=== PATIENT | female | born 1990 | race Caucasian/White ===

== ENCOUNTER 2020-09-23 10:13 | Inpatient (IN) | payer MEDICAID, SELFPAY ==
[2020-09-23] VITALS (11 sets, daily range): BP systolic 118–137; BP diastolic 57–82; PULSE 102–133; RESP 18–28; TEMP 36.8–37.2; O2SAT 93–100; BMI 24.0
--- NOTE | 2020-09-23 10:36 | XR_ITS ---
EXAMINATION: XR CHEST CLINICAL INFORMATION: Shortness of breath COMPARISON: Chest radiographs 02/22/2020, 10/20/2019 TECHNIQUE: Portable upright AP view of the chest was obtained. FINDINGS: The lungs are clear. There is no pneumothorax, pleural reaction, airspace consolidation, or groundglass opacity. The costophrenic sulci are well-defined. The heart is normal in size. The vascularity is normal. The hilar and mediastinal contours and bony structures are unremarkable. There is a folded high attenuation artifact overlying the left axilla measuring 5.1 x 2.3 cm, presumably overlying outside of the patient. Clinically correlate. XR/XR chest 1V IMPRESSION: 1. Lungs clear. 2. Artifact overlying left axilla, presumably outside of the patient. Clinically correlate.
--- NOTE | 2020-09-23 10:39 | ED.ASTHMA ---
HPI - Asthma General Chief Complaint: Asthma Stated Complaint: asthma Time Seen by Provider: 09/23/20 10:36 History of Present Illness HPI Narrative: Patient is a 29-year-old female presents today with having coughing, shortness of breath. Similar to previous bouts of asthma exacerbation. Was admitted to the hospital few months ago. Patient denies any change in smell or taste. No fever no chills. Coughing nonproductive in nature. Positive generalized malaise. Symptoms fairly abrupt in onset since this morning. No history of heart failure. No history of [place]. no sick contact. Related Data Home Medications Medication Instructions Recorded Confirmed albuterol sulfate 0.63 mg INHALATION Q4-6H PRN 09/23/20 09/23/20 albuterol sulfate [ProAir HFA] 2 puff INHALATION Q4H PRN 09/23/20 09/23/20 cetirizine 10 mg PO DAILY 09/23/20 09/23/20 fluticasone furoate-vilanterol 1 inh INHALATION DAILY 09/23/20 09/23/20 [Breo Ellipta] fluticasone propionate [Flonase] 2 spray INTRANASAL DAILY 09/23/20 09/23/20 ketotifen fumarate 1 drp OPHTHALMIC (EYE) BID PRN 09/23/20 09/23/20 montelukast 10 mg PO BEDTIME 09/23/20 09/23/20 Allergies Allergy/AdvReac Type Severity Reaction Status Date / Time SEASONAL ALLERGIES Allergy Intermediate RUNNY NOSE Uncoded 06/17/20 18:02 Review of Systems Review of Systems: Yes Unobtainable due to mental condition PMFSH Past Medical History Attestation statement: The following information was validated with the patient. Medical History (Updated 09/23/20 @ 13:18 by Estevan Chacon MD) Asthma section wound complication Family History Family History (Updated 09/23/20 @ 13:18 by Estevan Chacon MD) Other Asthma Social History Social History Smoking Status: Light tobacco smoker Use of substances other than those prescribed or required for medical reasons: Yes Substance Use Type: Marijuana Advance Directives: No Advance Directives Information Provided: No Physical Exam Vital Signs: Vital Signs: Last Vital Signs Temp 98.2 F 09/23/20 10:24 Pulse 108 H 09/23/20 12:18 Resp 20 09/23/20 11:39 BP 137/82 09/23/20 11:05 Pulse Ox 100 09/23/20 11:39 Body Mass Index 24.0 Appearance: Alert. Oriented X3. In respiratory distress Eyes: Pupils equal, round and reactive to light. ENT: Pharynx normal. Neck: Normal inspection. Neck supple. No lymph nodes noted. No crepitus CVS: Tachycardic but regular Respiratory: Diminished breath sounds bilaterally with increased work of breathing wheezing bilaterally Abdomen: Soft and nontender. No rigidity. No distention. good BS x4 Skin: Skin warm and dry. Normal skin color. Normal skin turgor. Extremities: No lower extremity edema. Neurovascular intact to all extremities. No Lacerations. No Rash Neuro: Oriented X 3. No motor deficit. No sensory deficit. Moving all extermities. No slurred speech MDM - Asthma MDM Narrative Medical decision making narrative: Patient given steroid multiple continuous neb treatments. Still wheezing still feels short of breath. Audible wheezing could be heard just standing next to her. Will admit for further evaluation and observation. Currently in stable condition. Patient's chest x-ray was negative for pneumonia. Patient's coronavirus test was negative. Lab Data Attestation: I reviewed the patient's lab results. Labs: Lab Results 09/23/20 09/23/20 09/23/20 Range/Units 10:56 10:56 10:59 Hold Purple Top SEE NOTE Hold Blue Top Beta HCG, Quant < 2 mIU/mL COVID-19 (CRYSTAL) Negative (Negative) COVID-19 Clin Com See Note 09/23/20 Range/Units 10:59 Hold Purple Top Hold Blue Top SEE NOTE Beta HCG, Quant mIU/mL COVID-19 (CRYSTAL) (Negative) COVID-19 Clin Com Critical Care Time Critical Care Time Critical Care Time: Yes Total Critical Care Time: 40 Attestation: I have personally provided 40 minutes of critical care time exclusive of time spent on separately billable procedures. Time includes review of lab data, radiology results, discussion with consultants, and monitoring for potential decompensation. Interventions were performed as documented above Discharge Plan Discharge Clinical Impression: Asthma with status asthmaticus Prescriptions: No Action albuterol sulfate 0.63 mg/3 mL Solution For Nebulization 0.63 mg INHALATION Q4-6H PRN (Reason: Wheezing) RF: 0 cetirizine 10 mg Tablet 10 mg PO DAILY RF: 0 ketotifen fumarate 0.025 % (0.035 %) Drops 1 drp OPHTHALMIC (EYE) BID PRN (Reason: Itching) RF: 0 montelukast 10 mg Tablet 10 mg PO BEDTIME RF: 0 albuterol sulfate [ProAir HFA] 90 mcg/actuation Hfa Aerosol Inhaler 2 puff INHALATION Q4H PRN (Reason: Shortness Of Breath Or Wheezing) RF: 0 fluticasone propionate [Flonase] 50 mcg/actuation [place],Suspension 2 spray INTRANASAL DAILY RF: 0 Breo Ellipta 200-25 mcg/dose Blister With Device 1 inh INHALATION DAILY RF: 0
[2020-09-23] MEDS: Albuterol Sulfate (0.083%) 2.5 MG/3 ML VIAL.NEB 10 MG INHALE (10:45)
[2020-09-23] MEDS: methylPREDNISolone Sod Succ/PF 125 MG/2 ML VIAL IVPUSH (10:51)
[2020-09-23] MEDS: Magnesium Sulfate/H2O 2 GM/50 ML PIGGYBACK IV (10:51)
[2020-09-23 11:30] LABS: COVID-19 Test Negative (Negative)
[2020-09-23 11:37] LABS: HCG Quantitative < 2 mIU/mL
--- NOTE | 2020-09-23 13:11 | PM.IMHP ---
History of Present Illness Date of Service: 09/23/20 Chief Complaint: SHORTNESS OF BREATH FOR FEW DAYS PATIENT IS A 29-YEAR-OLD FEMALE WITH THE HISTORY OF ASTHMA-she came to the hospital because she is feeling shortness of breath-patient says that she always get exacerbation during decision cold season . She denies any fever or chills but has cough with clear sputum. Denies any abdominal pain or weakness or numbness. She denies any sick contacts She says that she also has family history of asthma. She got to time nebulizers and steroids and magnesium-her breathing is still not improving so ED physician had requested for admission. As per the patient she quit smoking. But still uses smoke marijuana : She said last use was yesterday that might also have contributed to her shortness of breath. Past medical history: Asthma Past surgical history: She had 3 years ago as per the patient. Social history: Lives with family has 2 kids functionally independent Patient is ex-smoker quit is few months back, smokes marijuana though Denies any alcohol or any recreational drug use. Allergy : nkda Review of Systems Review of Systems: Constitutional patient is average build, seems short of breath. Constitutional: Constitutional: Reports fatigue ENT: Reports Normal hearing present Cardiovascular: Cardiovascular: Reports no additional cardiovascular complaints Respiratory: Comments: Cough and clear phlegm. Gastrointestinal: Comments: Denies any abdominal pain or nausea or vomiting Musculoskeletal: Comments: Denies any muscle pain or cramps Neurologic: Reports Normal hearing present Comments: No weakness or numbness Psychiatric: Comments: No anxiety or also said does not feel set. Endocrine: Endocrine: Reports fatigue [facility] Medical History (Updated 09/23/20 @ 13:18 by Estevan Chacon MD) Asthma section wound complication Family History (Updated 09/23/20 @ 13:18 by Estevan Chacon MD) Other Asthma Pertinent family history: Her both children has asthma. Social History Household Members: Family Housing: Apartment Do you presently have visiting nurse or other home services: No Smoking Status: Light tobacco smoker Use of substances other than those prescribed or required for medical reasons: Yes Substance Use Type: Marijuana Substance Use Frequency: Occasionally Last Used Substance: Days (ago) Currently Displaying Signs/Symptoms of Drug Intoxication Withdrawal: No Any prior treatment program specific to substance use: No Have you been hit, kicked, punched, or otherwise hurt by someone within the past year? If so, by whom?: No Do you feel safe in your current relationship?: Yes Is there a partner from a previous relationship who is making you feel unsafe now?: No Are you made to feel afraid or neglected: No Advance Directives: No Advance Directives Information Provided: No Do you have thoughts of harming others: None Do you have a plan to hurt others: No Plan Recently lost weight without trying: No service: No Current occupational status: unemployed Meds Allergies Allergy/AdvReac Type Severity Reaction Status Date / Time SEASONAL ALLERGIES Allergy Intermediate RUNNY NOSE Uncoded 09/23/20 18:15 Home Medications Medication Instructions Recorded Confirmed Type cetirizine 10 mg PO DAILY 09/23/20 09/23/20 History fluticasone furoate-vilanterol 1 inh INHALATION DAILY 09/23/20 09/23/20 History [Breo Ellipta] fluticasone propionate [Flonase] 2 spray INTRANASAL DAILY 09/23/20 09/23/20 History ketotifen fumarate 1 drp OPHTHALMIC (EYE) BID PRN 09/23/20 09/23/20 History montelukast 10 mg PO BEDTIME 09/23/20 09/23/20 History Physical Exam Vital Signs and Narrative: Vital Signs: Last Vital Signs Temp 98.2 F 09/23/20 10:24 Pulse 108 H 09/23/20 12:18 Resp 20 09/23/20 11:39 BP 137/82 09/23/20 11:05 Pulse Ox 100 09/23/20 11:39 Body Mass Index 24.0 HEENT: Eyes are anicteric, no discharge Cardiovascular: Regular rate and rhythm, S1-S2 heard, no murmur. res: Breath sounds are diminished at bases, has bilateral wheezing. abd: no rebound or guarding ,nt, bs present. ext pulses present , no cyanosis neuro: axo3 , nonfocal. Muscular cutaneous brink: No deformity, range of motion intact Skin: Warm, dry, no rashes. Neuro: Cranial nerves: Yes Normal hearing present Results Labs Labs: Laboratory Results - last 24 hr 09/23/20 09/23/20 09/23/20 10:56 10:56 10:59 Hold Purple Top SEE NOTE Hold Blue Top Beta HCG, Quant < 2 COVID-19 (CRYSTAL) Negative COVID-19 Clin Com See Note 09/23/20 10:59 Hold Purple Top Hold Blue Top SEE NOTE Beta HCG, Quant COVID-19 (CRYSTAL) COVID-19 Clin Com Imaging Radiologist's Impressions: Impressions Chest X-Ray 09/23/20 10:36 IMPRESSION: 1. Lungs clear. 2. Artifact overlying left axilla, presumably outside of the patient. Clinically correlate. Assessment and Plan (1) Asthma with status asthmaticus: Status: Acute 1. Asthma execerebation: started on nebs, steriods , oxygen, robitussin tachycardia probable due to nebs or sob 2. Marijuana use: Patient was advised in detail that might also contribute to her asthma exacerbation, advised to cut down and discussed with her PCP. dvt prophylax: lovenox.
[2020-09-23] MEDS: Enoxaparin Sodium 40 MG/0.4 ML SYRINGE SUBCUT (15:35)
[2020-09-23] MEDS: guaiFENesin 100 MG/5 ML LIQUID PO ×2 (15:35→21:08)
[2020-09-23] MEDS: Albuterol/Iprat 2.5/0.5MG 3 ML AMPUL.NEB INHALE ×2 (16:23→20:07)
[2020-09-23] MEDS: Acetaminophen 325 MG TABLET 650 MG PO (19:09)
--- NOTE | 2020-09-23 19:36 | PC.NURSE ---
director nursing service recorded by TIERRA ,confirmed by ABHISHEK Abad RN
[2020-09-23] MEDS: Montelukast Sodium 10 MG TABLET PO (21:08)
[2020-09-24] VITALS: BP 119/70; PULSE 100; RESP 16; TEMP 36.8; O2SAT 99
[2020-09-24 03:25] VITALS: BP 141/70; PULSE 93; RESP 18; TEMP 36.9; O2SAT 99
[2020-09-24 07:12] VITALS: BP 133/67; PULSE 100; RESP 18; TEMP 37.1; O2SAT 99
[2020-09-24] MEDS: Albuterol/Iprat 2.5/0.5MG 3 ML AMPUL.NEB INHALE (07:49)
[2020-09-24 07:51] VITALS: PULSE 100; O2SAT 96
[2020-09-24] MEDS: Loratadine 10 MG TABLET PO (08:29)
[2020-09-24] MEDS: Acetaminophen 325 MG TABLET 650 MG PO (08:29)
[2020-09-24] MEDS: guaiFENesin 100 MG/5 ML LIQUID PO (08:29)
[2020-09-24] MEDS: 0.9 % Sodium Chloride Flush 3 ML SYRINGE IVFLUSH (08:34)
--- NOTE | 2020-09-24 09:22 | MHC.CM.PN ---
Pt reports she lives at home with her children who are 14 and 3 yo. Pt reports she has a nebulizer at home. Pt reports she also uses an inhaler however it is empty and she will be unable to get a new one until Sunday as she uses the pharmacy at [facility] which will be closed. CM will speak to pts MD about a prescription to [facility] on [facility]. Pt has a HCP on file naming Rey Hensley as her agent, she reports this is accurate. Pt also confirms her PCP is Jacquie Castle. Per pt may DC today. Current DC plan is home with no services pt will self arrange transportation
--- NOTE | 2020-09-24 10:09 | MHC.CM.PN ---
Pt will DC home today with no services
--- NOTE | 2020-09-24 10:18 | PM.DS ---
DS: Providers Provider Date of admission: 09/23/20 13:11 Primary care physician: Jacquie Castle DO DS: Diagnosis Discharge Diagnosis (1) Asthma with status asthmaticus: Status: Acute DS: Medications Discharge Medications Home Medications: Home Medications Medication Instructions Recorded Confirmed cetirizine 10 mg PO DAILY 09/23/20 09/23/20 fluticasone furoate-vilanterol 1 inh INHALATION DAILY 09/23/20 09/23/20 [Breo Ellipta] fluticasone propionate [Flonase] 2 spray INTRANASAL DAILY 09/23/20 09/23/20 ketotifen fumarate 1 drp OPHTHALMIC (EYE) BID PRN 09/23/20 09/23/20 montelukast 10 mg PO BEDTIME 09/23/20 09/23/20 Previous Rx's Medication Instructions Recorded albuterol sulfate 0.63 mg INHALATION Q4-6H PRN #1 ml 09/24/20 albuterol sulfate [ProAir HFA] 2 puff INHALATION Q4H PRN #1 g 09/24/20 DS: Summary Hospital Course Hospital Course: 29-YEAR-OLD FEMALE WITH THE HISTORY OF ASTHMA-she came to the hospital because she is feeling shortness of breath-patient says that she always get exacerbation during decision cold season . She denies any fever or chills but has cough with clear sputum. Denies any abdominal pain or weakness or numbness. She denies any sick contacts She says that she also has family history of asthma. She got to time nebulizers and steroids and magnesium-her breathing is still not improving so ED physician had requested for admission. As per the patient she quit smoking. But still uses smoke marijuana : She said last use was yesterday that might also have contributed to her shortness of breath. Past medical history: Asthma. 1. Asthma execerebation: Patient came with asthma exacerbation-started on nebs and steroid: Seems improving, going home with p.o. steroid. Her albuterol inhalers are also ordered. Continue home meds for asthma, further management outpatient as per PCP. Above management discussed with the patient in detail length she understand and in agreement with the above plan, time spent 50 minutes and 50% time spent on counseling. Significant findings: As above. Procedures performed: None. Treatment and response: As above. Complications: None. Time Spent with Patient Time attestation: Total time spent providing and/or coordinating discharge services: Physical Exam Vital Signs: Vital Signs: Last Vital Signs Temp 98.7 F 09/24/20 07:12 Pulse 100 09/24/20 07:51 Resp 18 09/24/20 07:12 BP 133/67 09/24/20 07:12 Pulse Ox 99 09/24/20 07:12 Body Mass Index 24.0 Physical exam: Constitutional: Not in distress, seems more improved shortness of breath brink. HEENT: Eyes anicteric, no discharge. Cvs: rrr, [id number] , no murmur res: clear to auscultation ,no rhonchii or wheezing abd: no rebound or guarding ,nt, bs present. ext pulses present , no cyanosis neuro: axo3 , nonfocal. DS: Data Data Completed and Pending Labs on day of discharge: 09/23/20 10:36 Vital Signs Q1HR XR chest 1V Stat Albuterol Sulfate (0.083%) [Ventolin (0.083%)] 10 mg INHALE ONCE ONE methylPREDNISolone Sod Succ/PF [SOLU-MedroL] 125 mg IVPUSH ONCE ONE 09/23/20 10:42 Magnesium Sulfate/H2O 2 gm in 50 ml IV ONCE 09/23/20 10:43 Magnesium Sulfate/H2O 2 gm in 50 ml IV As directed 09/23/20 10:56 COVID-19 ID NOW (Yee) Stat HCG Quantitative Stat 09/23/20 10:59 Hold Lav - Possible Hematology Stat Hold Lt Blue - Possible Coag Stat 09/23/20 11:39 Albuterol Sulfate (0.083%) [Ventolin (0.083%)] 7.5 mg Ipratropium [place] [Atrovent] 0.5 mg INHALE ONCE 09/23/20 13:00 Transfer Order Routine Laboratory Last Values Hold Purple Top SEE NOTE 09/23/20 10:59 Hold Blue Top SEE NOTE 09/23/20 10:59 Beta HCG, Quant < 2 mIU/mL 09/23/20 10:56 COVID-19 (CRYSTAL) Negative (Negative) 09/23/20 10:56 COVID-19 Clin Com See Note 09/23/20 10:56 Discharge Plan Discharge Patient Disposition: Home, Self-Care Referrals: Jacquie Castle DO [Primary Care Provider] - Discharge Medications: New prednisone 20 mg tablet 40 mg PO DAILY Qty: 10 RF: 0 Continued cetirizine 10 mg Tablet 10 mg PO DAILY RF: 0 ketotifen fumarate 0.025 % (0.035 %) Drops 1 drp OPHTHALMIC (EYE) BID PRN (Reason: Itching) RF: 0 montelukast 10 mg Tablet 10 mg PO BEDTIME RF: 0 fluticasone propionate [Flonase] 50 mcg/actuation [place],Suspension 2 spray INTRANASAL DAILY RF: 0 Breo Ellipta 200-25 mcg/dose Blister With Device 1 inh INHALATION DAILY RF: 0 albuterol sulfate 0.63 mg/3 mL Solution For Nebulization 0.63 mg INHALATION Q4-6H PRN (Reason: Wheezing) Qty: 1 RF: 0 albuterol sulfate [ProAir HFA] 90 mcg/actuation Hfa Aerosol Inhaler 2 puff INHALATION Q4H PRN (Reason: Shortness Of Breath Or Wheezing) Qty: 1 RF: 0 Discharge Orders: Discharge Order (Routine); Ordered 09/24/20 Ordered By: Estevan Chacon Diet: advance to usual diet Activity on Discharge: As tolerated Visit Report Forms: Patient Portal Discharge page Care Plan Goals: Patient came with asthma exacerbation-started on nebs and steroid: Seems improving, going home with p.o. steroid. Her albuterol inhalers are also ordered. Continue home meds for asthma, further management outpatient as per PCP. Health Concerns: As above. Plan of Treatment: As above.
== END 2020-09-24 10:30 | disposition home or self-care (01) | DRG 141 ==
LOC: HO.ED 10:37 → HO.IMC 16:00
PROVIDERS: Admitting Provider Internal Medicine; Emergency Provider Emergency Medicine Emergency Medical Services; PCP Family Medicine; Visit Provider Internal Medicine
DX: J45.902 Unspecified asthma with status asthmaticus (principal); Z20.828 Contact with and (suspected) exposure to other viral communicable diseases; Z87.891 Personal history of nicotine dependence; Z79.51 Long term (current) use of inhaled steroids; Z79.899 Other long term (current) drug therapy
CPT/HCPCS: 36415; 71045; 84702; 87635; 94640; 94644; 94645; 96365; 96375; 99285; 99291; J1650; J2920; J2930; J3475

== ENCOUNTER 2021-06-15 14:50 | Outpatient (REF) | payer MEDICAID, SELFPAY | END 2021-06-15 14:51 | disposition home or self-care (01) | LOC: HO.LAB 14:50 | PROVIDERS: PCP Family Medicine; Visit Provider Internal Medicine | DX: Z20.822 Contact with and (suspected) exposure to COVID-19 (principal) | CPT/HCPCS: C9803; U0003; U0005 ==

== ENCOUNTER 2021-10-06 15:25 | Emergency (ER) | payer MEDICAID, SELFPAY ==
[2021-10-06 16:19] VITALS: BP 112/50; PULSE 86; RESP 20; TEMP 36.8; O2SAT 98; BMI 30.1
--- NOTE | 2021-10-06 16:39 | ED_ITS ---
HPI - Asthma General Chief Complaint: Asthma <SALAS Modi - Last Filed: 10/06/21 16:57> Stated Complaint: asthma <SALAS Modi - Last Filed: 10/06/21 16:57> Time Seen by Provider: 10/06/21 16:39 <SALAS Modi - Last Filed: 10/06/21 16:57> Source: patient <Raven Beckford MD - Last Filed: 10/07/21 04:25> Mode of arrival: ambulatory <Raven Beckford MD - Last Filed: 10/07/21 04:25> History of Present Illness HPI Narrative: 30-year-old female with presentation for mild exacerbation of her asthma and states that she does not have any of her inhaler and is otherwise complaining of shortness of breath with cough and nasal congestion with generalized body aches. She states she received the COVID-19 vaccine, Moderna, not boosted. <Raven Beckford MD - Last Filed: 10/07/21 04:25> Related Data Home Medications: Home Medications Medication Instructions Recorded Confirmed cetirizine 10 mg tablet 10 mg PO DAILY 09/23/20 09/23/20 fluticasone furoate 200 1 inh INHALATION DAILY 09/23/20 09/23/20 mcg-vilanterol 25 mcg/dose inhalation powder (Breo Ellipta) fluticasone propionate 50 2 spray INTRANASAL DAILY 09/23/20 09/23/20 mcg/actuation nasal spray,suspension ketotifen fumarate 0.025 % (0.035 1 drp OPHTHALMIC (EYE) BID PRN 09/23/20 09/23/20 %) eye drops montelukast 10 mg tablet 10 mg PO BEDTIME 09/23/20 09/23/20 Previous Rx's Medication Instructions Recorded albuterol sulfate 0.63 mg/3 mL 0.63 mg (3 mL) INHALATION Q4-6H 09/24/20 solution for nebulization PRN #1 ml albuterol sulfate 90 mcg/actuation 2 puff INHALATION Q4H PRN #1 g 09/24/20 aerosol inhaler (ProAir HFA) prednisone 20 mg tablet 40 mg PO DAILY #10 tab 09/24/20 prednisone 20 mg tablet 40 mg PO DAILY 4 Days #8 tab 10/07/21 <SALAS Modi - Last Filed: 10/06/21 16:57> Allergies/Adverse Reactions: Allergies Allergy/AdvReac Type Severity Reaction Status Date / Time SEASONAL ALLERGIES Allergy Intermediate RUNNY NOSE Uncoded 10/06/21 16:18 <SALAS Modi - Last Filed: 10/06/21 16:57> Review of Systems Review of Systems: Pertinent positives and negatives as stated in HPI 10 point review of systems is otherwise negative. <Raven Beckford MD - Last Filed: 10/07/21 04:25> [facility] Past Medical History Source: nursing notes reviewed <Raven Beckford MD - Last Filed: 10/07/21 04:25> Medical History: Medical History Asthma section wound complication <SALAS Modi - Last Filed: 10/06/21 16:57> Family History Family History: Family History Other Asthma <SALAS Modi - Last Filed: 10/06/21 16:57> Social History Social History: Social History Household Members: Family Housing: Apartment Do you presently have visiting nurse or other home services: No Substance Use Type: Marijuana Advance Directives: No Advance Directives Information Provided: Yes Patient : No service: No Current occupational status: unemployed <SALAS Modi - Last Filed: 10/06/21 16:57> Physical Exam Vital Signs: Vital Signs: Last Vital Signs Temp 98.2 F 10/06/21 16:19 Pulse 86 10/06/21 16:19 Resp 20 10/06/21 16:19 BP 112/50 L 10/06/21 16:19 Pulse Ox 98 10/06/21 16:19 BMI result Body Mass Index 30.1 <SALAS Modi - Last Filed: 10/06/21 16:57> Vital Signs: Last Vital Signs Temp 98.2 F 10/06/21 16:19 Pulse 86 10/06/21 16:19 Resp 20 10/06/21 16:19 BP 112/50 L 10/06/21 16:19 Pulse Ox 98 10/06/21 16:19 BMI result Body Mass Index 30.1 VITAL SIGNS: Reviewed. GENERAL: Well developed, well nourished, in no acute distress. HEAD: Normocephalic/atraumatic EYES: PERRLA, EOMI EARS: Ext canals without abnormality, TMs non-bulging and non-erythematous NOSE: Nares patent bilateral OROPHARYNX: no oral lesions noted, posterior pharynx clear and non-erythematous without noted tonsillar enlargement/erythema/exudates NECK: Supple, no adenopathy LUNGS: Good inspiratory effort, no tachypnea, mild expiratory wheezing bilaterally, no increased work of breathing. SpO2 <98> CARDIOVASCULAR: Regular rate and rhythm without noted murmurs ABDOMEN: Soft, non-tender, non-distended with bowel sounds. NEUROLOGIC: Alert and oriented x 4. <Raven Beckford MD - Last Filed: 10/07/21 04:25> Course Course Course Narrative: 30-year-old female with history and clinical presentation consistent with mild asthma exacerbation, patient received albuterol treatment as well as initial dose of steroids. Her COVID-19 test is negative and she is otherwise discharged home in stable condition with a short course of steroids. <Raven Beckford MD - Last Filed: 10/07/21 04:25> MDM - Asthma Lab Data Labs: Lab Results 10/06/21 Range/Units 16:24 COVID-19 (CRYSTAL) Negative (Negative) COVID-19 Clin Com See Note <SALAS Modi - Last Filed: 10/06/21 16:57> Lab Results 10/06/21 Range/Units 16:24 COVID-19 (CRYSTAL) Negative (Negative) COVID-19 Clin Com See Note <Raven Beckford MD - Last Filed: 10/07/21 04:25> Discharge Plan Discharge Clinical Impression: Asthma, Close exposure to COVID-19 virus, Lab test negative for COVID-19 virus <SALAS Modi - Last Filed: 10/06/21 16:57> Patient Disposition: Home, Self-Care <SALAS Modi - Last Filed: 10/06/21 16:57> Instructions: Asthma (ED), COVID-19 (Coronavirus Disease 2019) (ED) <SALAS Modi - Last Filed: 10/06/21 16:57> Additional Instructions: 1. Resume all home medications as prescribed. 2. Although your COVID-19 test was negative today, you are significant for a positive exposure due to a family member and current recommendations are that you quarantine with repeat testing in 2-3 days. This test does not need to be done in the emergency room in can be coordinated with [facility] or with [facility] outpatient testing located on the grounds of this facility. 3. Follow-up with your primary care provider via telemedicine appointment for re-evaluation and further outpatient management. Return to the ER for worsening symptoms. <SALAS Modi - Last Filed: 10/06/21 16:57> Prescriptions: New prednisone 20 mg tablet 40 mg PO DAILY 4 Days Qty: 8 RF: 0 No Action cetirizine 10 mg Tablet 10 mg PO DAILY RF: 0 ketotifen fumarate 0.025 % (0.035 %) Drops 1 drp OPHTHALMIC (EYE) BID PRN (Reason: Itching) RF: 0 montelukast 10 mg Tablet 10 mg PO BEDTIME RF: 0 fluticasone propionate 50 mcg/actuation [place],Suspension 2 spray INTRANASAL DAILY RF: 0 Breo Ellipta 200-25 mcg/dose Blister With Device 1 inh INHALATION DAILY RF: 0 prednisone 20 mg tablet 40 mg PO DAILY Qty: 10 RF: 0 albuterol sulfate 0.63 mg/3 mL Solution For Nebulization 0.63 mg INHALATION Q4-6H PRN (Reason: Wheezing) Qty: 1 RF: 0 albuterol sulfate [ProAir HFA] 90 mcg/actuation Hfa Aerosol Inhaler 2 puff INHALATION Q4H PRN (Reason: Shortness Of Breath Or Wheezing) Qty: 1 RF: 0 <SALAS Modi - Last Filed: 10/06/21 16:57> Referrals: [facility] [Primary Care Provider] - 2 days <SALAS Modi - Last Filed: 10/06/21 16:57> Stand Alone Forms: Work/School Release <SALAS Modi - Last Filed: 10/06/21 16:57>
[2021-10-06 16:52] LABS: COVID-19 Test Negative (Negative)
[2021-10-07] MEDS: Albuterol Sulfate 90 MCG 8 GM INHALER 4 PUFF INHALE (04:21)
[2021-10-07] MEDS: predniSONE 10 MG TABLET 50 MG PO (04:21)
== END 2021-10-07 04:44 | disposition home or self-care (01) ==
PROVIDERS: Emergency Provider Student in an Organized Health Care Education/Training Program
DX: J45.909 Unspecified asthma, uncomplicated (principal); Z20.822 Contact with and (suspected) exposure to COVID-19
CPT/HCPCS: 87635; 99283; 99284

== ENCOUNTER → 2022-09-05 14:58 | Outpatient (BNVA) | payer MEDICAID, SELFPAY | PROVIDERS: PCP Family Medicine; Visit Provider Advanced Practice Midwife | DX: O34.219 Maternal care for unspecified type scar from previous cesarean delivery (principal); Z3A.00 Weeks of gestation of pregnancy not specified | CPT/HCPCS: 81025; 99202 ==

== ENCOUNTER 2022-09-20 15:27 | Outpatient (REF) | payer MEDICAID, SELFPAY ==
--- NOTE | ~2022-09-20 | US_ITS ---
EXAMINATION: US OBSTETRICAL ULTRASOUND CLINICAL INFORMATION: Size and dates COMPARISON: None. LMP: Not known. Gestational age by maternal dates is not known. Estimated date of delivery by maternal dates is not known. TECHNIQUE: Transabdominal ultrasound of pelvis is performed. FINDINGS: There is a single intrauterine gestational sac with visualization of embryo/fetus, and cardiac activity. Yolk sac is not visualized. There is no significant subchorionic hemorrhage or hematoma. HR: 165 beats per minute. CRL (crown rump length): 3.77 cm (10 weeks and 5 days +/- 4 days). RENETTA (estimated date of delivery): 04/13/2023 +/- 4 days. MATERNAL ADNEXA: The right maternal ovary measures 2.98 x 2.06 x 2.48 cm. The left maternal ovary measures 2.55 x 1.67 x 1.82 cm. There is no significant maternal adnexal mass. No maternal pelvic ascites. US/US OB <= 14 weeks fetus IMPRESSION: 1. Single intrauterine gestation with ultrasound gestational age of 10 weeks and 5 days +/- 4 days. 2. Estimated date of delivery is 04/13/2023 +/- 4 days. 3. No maternal adnexal mass or pelvic ascites.
== END 2022-09-20 15:28 | disposition home or self-care (01) ==
LOC: HO.HMGCX 15:27
PROVIDERS: PCP Family Medicine; Visit Provider Advanced Practice Midwife
DX: O34.219 Maternal care for unspecified type scar from previous cesarean delivery (principal); Z3A.10 10 weeks gestation of pregnancy
CPT/HCPCS: 76801

== ENCOUNTER 2022-12-29 18:25 | Emergency (ER) | payer MEDICAID, SELFPAY ==
[2022-12-29 18:27] VITALS: BP 126/44; PULSE 142; RESP 24; TEMP 36.7; O2SAT 93; BMI 31.7
--- NOTE | 2022-12-29 18:27 | ED_ITS ---
HPI - General Adult General Chief complaint: Asthma <SALAS Clarke - Last Filed: 01/01/23 08:21> Stated complaint: Diff breathing/ Asthma <SALAS Clarke - Last Filed: 01/01/23 08:21> Time Seen by Provider: 12/29/22 19:23 <SALAS Clarke - Last Filed: 01/01/23 08:21> History of Present Illness HPI narrative: 32-year-old female with history of asthma, 7 months presents with shortness of breath. Symptoms started today. The symptoms are severe. Associated with cough. There has been no fevers or chills. She has been no mucus production. She has tried the albuterol inhaler without relief. She denies any sick contacts. She has had a little bit nasal congestion. She has some chest tightness. The symptoms are not worse with exertion. She denies any orthopnea, PND, lower extremity edema. <Damian eDan MD - Last Filed: 12/29/22 22:56> Related Data Home medications: Home Medications Medication Instructions Recorded Confirmed cetirizine 10 mg tablet 10 mg PO DAILY 09/23/20 09/23/20 fluticasone furoate 200 1 inh inhalation DAILY 09/23/20 09/23/20 mcg-vilanterol 25 mcg/dose inhalation powder (Breo Ellipta) fluticasone propionate 50 2 spray intranasal DAILY 09/23/20 09/23/20 mcg/actuation nasal spray,suspension ketotifen fumarate 0.025 % (0.035 1 drp ophthalmic (eye) BID PRN 09/23/20 09/23/20 %) eye drops Itching montelukast 10 mg tablet 10 mg PO BEDTIME 09/23/20 09/23/20 epinephrine 0.3 mg/0.3 mL IM 09/05/22 injection, auto-injector loratadine 10 mg tablet (Allergy 10 mg PO DAILY PRN allergies 09/05/22 Relief (loratadine)) omeprazole 20 mg capsule,delayed 20 mg PO BID 09/05/22 release vitamin with calcium 1 tab PO DAILY 09/05/22 no.72-iron 27 mg-folic acid 1 mg tablet ( Vitamins Plus Low Iron) Previous Rx's Medication Instructions Recorded albuterol sulfate 0.63 mg/3 mL 0.63 mg (3 mL) inhalation Q4-6H 09/24/20 solution for nebulization PRN Wheezing #1 mL albuterol sulfate 90 mcg/actuation 2 puff inhalation Q4H PRN 09/24/20 aerosol inhaler (ProAir HFA) Shortness Of Breath Or Wheezing #1 g prednisone 20 mg tablet 40 mg PO DAILY #10 tabs 09/24/20 prednisone 20 mg tablet 40 mg PO DAILY 4 days #8 tabs 10/07/21 albuterol sulfate 2.5 mg/3 mL 2.5 mg (3 mL) inhalation Q4-6H PRN 12/29/22 (0.083 %) solution for nebulization bronchospasm #90 mL albuterol sulfate 90 mcg/actuation 2 puff inhalation Q4-6H PRN 12/29/22 aerosol inhaler shortness of breath or wheezing #8.5 grams prednisone 20 mg tablet 20 mg PO DAILY #7 tabs 12/29/22 <SALAS Clrake - Last Filed: 01/01/23 08:21> Allergies/adverse reactions: Allergies Allergy/AdvReac Type Severity Reaction Status Date / Time SEASONAL ALLERGIES Allergy Intermediate RUNNY NOSE Uncoded 09/05/22 15:07 <SALAS Clarke - Last Filed: 01/01/23 08:21> [facility] Past Medical History Medical History: Medical History Asthma section wound complication <SALAS Clarke - Last Filed: 01/01/23 08:21> Surgical History: Surgical History Hx of section <SALAS Clarke - Last Filed: 01/01/23 08:21> Family History Family History: Family History Other Asthma <SALAS Clarke - Last Filed: 01/01/23 08:21> Social History Social History: Social History Household Members: Family Housing: Apartment Do you presently have visiting nurse or other home services: No Alcohol intake: never Smoked in Last 30 Days: No Use of substances other than those prescribed or required for medical reasons: No Substance Use Type: Marijuana Advance Directives: No Advance Directives Information Provided: Yes Patient : Yes service: No Current occupational status: unemployed <SALAS Clarke - Last Filed: 01/01/23 08:21> Physical Exam ED Vital Signs: Vital Signs - 24 hr 12/29/22 18:27 12/29/22 19:05 Temperature 98.0 F Pulse Rate 142 H 127 H Respiratory Rate 24 H 18 Blood Pressure 126/44 L 103/49 L Pulse Oximetry 93 98 Oxygen Delivery Method Room Air Room Air BMI result Body Mass Index 31.7 <SALAS Clarke - Last Filed: 01/01/23 08:21> Vital Signs - 24 hr 12/29/22 18:27 12/29/22 19:05 Temperature 98.0 F Pulse Rate 142 H 127 H Respiratory Rate 24 H 18 Blood Pressure 126/44 L 103/49 L Pulse Oximetry 93 98 Oxygen Delivery Method Room Air Room Air BMI result Body Mass Index 31.7 <Damian Dean MD - Last Filed: 12/29/22 22:56> GEN: Well developed, no acute distress, alert, oriented HEENT: Normocephalic, atraumatic, normal external ears, nose appears normal, no oropharyngeal edema or exudates Eyes: Normal to appearance Neck: Supple, no lymphadenopathy Respiratory: Conversational dyspnea, tachypneic, cough, prolonged expiration with expiratory wheezes in all [place], no crackles Cardiovascular: Regular rate and rhythm, no murmurs rubs or gallops Abdomen: Soft, nontender, nondistended, no guarding, no rebound, gravid abdomen Back: No CVA tenderness Extremities: No clubbing cyanosis or edema Neurologic: No focal neurologic deficits, cranial nerves 2-12 intact, strength is 5/5 bilaterally, gait normal Skin: No rash <Damian Dean MD - Last Filed: 12/29/22 22:56> Course Course Course Narrative: RME performed by Payton Bravo PA-C. Patient is a 32 year old assigned female at , currently 7 months , presenting to the emergency department with difficulty breathing. Labs and swab ordered. Charge nurse informed of critical status of the patient. <SALAS Clarke - Last Filed: 01/01/23 08:21> Reevaluation(s) Reevaluation #1: Patient presents with shortness of breath. She has asthma. She has had multiple treatments including 5 nebulizers prior to arrival, 2 well in the emergency department with magnesium. Her oxygen saturation is approximately 100% on room air. Her heart rate is down from 160-100. She has no wheezing. There is no prolonged expiration or accessory muscle use. She still has some congestion. Patient feels comfortable enough to go home at this time. Will continue oral steroids. Will provide a prescription for albuterol inhaler nebulizer solutions. <Damian Dean MD - Last Filed: 12/29/22 22:56> Time: 22:51 <Damian Dean MD - Last Filed: 12/29/22 22:56> Medications Administered Discontinued Medications Generic Name Dose Route Start Last Admin Trade Name Freq PRN Reason Stop Dose Admin Albuterol Sulfate 10 mg 12/29/22 18:29 12/29/22 19:03 Albuterol Sulfate (0.083%) 2.5 Mg/3 Ml Vial.Neb INHALE 12/29/22 18:30 10 mg ONCE ONE Administration Albuterol Sulfate 2.5 mg/ 0 mg 12/29/22 19:50 12/29/22 19:59 Ipratropium [place] 0.5 mg INHALE 12/29/22 19:51 1 each ONCE ONE Administration Magnesium Sulfate 2 gm in 50 mls @ 25 mls/hr 12/29/22 19:50 12/29/22 22:14 Magnesium Sulfate/H2o IV 12/29/22 21:49 Infused ONCE ONE Infusion Methylprednisolone Sodium Succinate 125 mg 12/29/22 19:50 12/29/22 19:58 Methylprednisolone Sod Succ 125 Mg/2 Ml Vial IVPUSH 12/29/22 19:51 125 mg ONCE ONE Administration <SALAS Clarke - Last Filed: 01/01/23 08:21> Medications Administered Discontinued Medications Generic Name Dose Route Start Last Admin Trade Name Freq PRN Reason Stop Dose Admin Albuterol Sulfate 10 mg 12/29/22 18:29 12/29/22 19:03 Albuterol Sulfate (0.083%) 2.5 Mg/3 Ml Vial.Neb INHALE 12/29/22 18:30 10 mg ONCE ONE Administration Albuterol Sulfate 2.5 mg/ 0 mg 12/29/22 19:50 12/29/22 19:59 Ipratropium [place] 0.5 mg INHALE 12/29/22 19:51 1 each ONCE ONE Administration Magnesium Sulfate 2 gm in 50 mls @ 25 mls/hr 12/29/22 19:50 12/29/22 22:14 Magnesium Sulfate/H2o IV 12/29/22 21:49 Infused ONCE ONE Infusion Methylprednisolone Sodium Succinate 125 mg 12/29/22 19:50 12/29/22 19:58 Methylprednisolone Sod Succ 125 Mg/2 Ml Vial IVPUSH 12/29/22 19:51 125 mg ONCE ONE Administration <Damian Dean MD - Last Filed: 12/29/22 22:56> Medical Decision Making Medical Decision Making [facility] Narrative: 32-year-old female presents with shortness of breath. Patient has history of asthma. Her examination is most consistent with acute asthma exacerbation. She has prolonged expiration, expiratory wheezes, accessory muscle use. She has no lower extremity edema. She is 7 months . Doubt PE or DVT. She has no fevers or chills. However, infectious processes possible including bronchitis, viral syndrome. Will check for COVID. I did not appreciate any crackles, doubt pneumonia. Will consider chest x-ray if need be. Will obtain routine laboratory analysis as well. Patient received nebulizer treatment, steroids and magnesium. <Damian Dean MD - Last Filed: 12/29/22 22:56> Differential Diagnosis Differential Diagnoses: The differential diagnosis associated with the presentation includes (Asthma exacerbation, asthma, viral syndrome, COPD, pneumonia, CHF) <Damian Dean MD - Last Filed: 12/29/22 22:56> Admission/Observation Consideration of admission/observation: Escalation of care including admission/observation considered <Damian Dean MD - Last Filed: 12/29/22 22:56> Lab Data [facility] Lab Attestation statement: I reviewed the patient's lab results. <Damian Dean MD - Last Filed: 12/29/22 22:56> Result Diagrams: 12/29/22 18:51 12/29/22 18:51 <SALAS Clarke - Last Filed: 01/01/23 08:21> Labs: Lab Results 12/29/22 12/29/22 12/29/22 Range/Units 18:51 18:51 18:51 WBC 16.0 H (4.8-10.8) X10*3/uL RBC 3.60 L (4.20-5.50) X10*6/uL Hgb 10.6 L (12.0-16.0) g/dl Hct 31.6 L (37.0-47.0) % MCV 87.8 (80.0-98.0) fL MCH 29.4 (27.0-33.0) pg MCHC 33.5 (31.0-35.0) g/dl RDW 14.1 (11.0-16.0) % Plt Count 346 (160-400) X10*3/uL MPV 9.4 (9.4-12.3) fL Immature Gran % (Auto) 0.3 (0.0-0.4) % Neut % (Auto) 91.5 H (45-73) % Lymph % (Auto) 3.4 L (20-40) % [place] % (Auto) 4.2 (2-11) % Eos % (Auto) 0.4 (0-4) % Baso % (Auto) 0.2 (0-2) % Lymph # (Auto) 0.6 L (1.2-4.9) X10*3/uL [place] # (Auto) 0.7 (0.1-1.2) X10*3/uL Eos # (Auto) 0.1 (0.0-0.4) X10*3/uL Baso # (Auto) 0.0 (0.0-0.2) X10*3/uL Abs Immat Gran (auto) 0.05 H (0.00-0.03) X10*3/uL Absolute Neuts (auto) 14.6 H (2.0-8.3) x10*3/uL Absolute Nucleated RBC 0.000 (0.0-0.012) X10*3/uL Nucleated RBC % (auto) 0.0 (0.0-0.2) /100WBC Smear Tech's Comments VERIFIED Sodium 136 (135-145) mmol/L Potassium 3.7 (3.3-5.1) mmol/L Chloride 105 (96-108) mmol/L Carbon Dioxide 22 (22-29) mmol/L Anion Gap 13 (12-20) BUN 6 L (9-16) mg/dL Creatinine 0.61 (0.5-1.4) mg/dL Estim Creat Clear Calc 136.2 Estimated GFR > 60 Random Glucose 100 (60-115) mg/dL Calcium 8.7 (8.4-10.2) mg/dL Magnesium 1.8 (1.6-2.6) mg/dL Total Bilirubin 0.6 (0.0-1.0) mg/dL AST 16 (5-31) U/L ALT 8 (0-31) U/L Alkaline Phosphatase 85 (39-117) U/L Total Protein 6.2 L (6.5-8.0) g/dL Albumin 3.3 L (3.5-5.0) g/dL Influenza Type A (PCR) NEGATIVE (Negative) Influenza Type B (PCR) NEGATIVE (Negative) RSV RNA Qual (PCR) NEGATIVE (Negative) SARS-CoV-2 RNA (RT-PCR) NEGATIVE (Negative) <SALAS Clarke - Last Filed: 01/01/23 08:21> Lab Results 12/29/22 12/29/22 12/29/22 Range/Units 18:51 18:51 18:51 WBC 16.0 H (4.8-10.8) X10*3/uL RBC 3.60 L (4.20-5.50) X10*6/uL Hgb 10.6 L (12.0-16.0) g/dl Hct 31.6 L (37.0-47.0) % MCV 87.8 (80.0-98.0) fL MCH 29.4 (27.0-33.0) pg MCHC 33.5 (31.0-35.0) g/dl RDW 14.1 (11.0-16.0) % Plt Count 346 (160-400) X10*3/uL MPV 9.4 (9.4-12.3) fL Immature Gran % (Auto) 0.3 (0.0-0.4) % Neut % (Auto) 91.5 H (45-73) % Lymph % (Auto) 3.4 L (20-40) % [place] % (Auto) 4.2 (2-11) % Eos % (Auto) 0.4 (0-4) % Baso % (Auto) 0.2 (0-2) % Lymph # (Auto) 0.6 L (1.2-4.9) X10*3/uL [place] # (Auto) 0.7 (0.1-1.2) X10*3/uL Eos # (Auto) 0.1 (0.0-0.4) X10*3/uL Baso # (Auto) 0.0 (0.0-0.2) X10*3/uL Abs Immat Gran (auto) 0.05 H (0.00-0.03) X10*3/uL Absolute Neuts (auto) 14.6 H (2.0-8.3) x10*3/uL Absolute Nucleated RBC 0.000 (0.0-0.012) X10*3/uL Nucleated RBC % (auto) 0.0 (0.0-0.2) /100WBC Smear Tech's Comments VERIFIED Sodium 136 (135-145) mmol/L Potassium 3.7 (3.3-5.1) mmol/L Chloride 105 (96-108) mmol/L Carbon Dioxide 22 (22-29) mmol/L Anion Gap 13 (12-20) BUN 6 L (9-16) mg/dL Creatinine 0.61 (0.5-1.4) mg/dL Estim Creat Clear Calc 136.2 Estimated GFR > 60 Random Glucose 100 (60-115) mg/dL Calcium 8.7 (8.4-10.2) mg/dL Magnesium 1.8 (1.6-2.6) mg/dL Total Bilirubin 0.6 (0.0-1.0) mg/dL AST 16 (5-31) U/L ALT 8 (0-31) U/L Alkaline Phosphatase 85 (39-117) U/L Total Protein 6.2 L (6.5-8.0) g/dL Albumin 3.3 L (3.5-5.0) g/dL Influenza Type A (PCR) NEGATIVE (Negative) Influenza Type B (PCR) NEGATIVE (Negative) RSV RNA Qual (PCR) NEGATIVE (Negative) SARS-CoV-2 RNA (RT-PCR) NEGATIVE (Negative) <Damian Dean MD - Last Filed: 12/29/22 22:56> Tests considered The following testing was considered but not selected: Chest x-ray <Damian Dean MD - Last Filed: 12/29/22 22:56> Prescription Management I considered prescription management with: Antibiotic <Damian Dean MD - Last Filed: 12/29/22 22:56> Chronic Conditions Patient?s care impacted by: Other (Asthma) <Damian Dean MD - Last Filed: 12/29/22 22:56> Critical Care Time Critical Care Time Critical Care Time: Yes <Damian Dean MD - Last Filed: 12/29/22 22:56> Total Critical Care Time: 35 <Damian Dean MD - Last Filed: 12/29/22 22:56> Attestation: Over 30 minutes of critical care time has been performed in bedside assessment, frequent re-evaluations, evaluation of medical data, documentation, outside the course of procedures. <Damian Dean MD - Last Filed: 12/29/22 22:56> Discharge Plan Discharge Clinical Impression: Asthma with acute exacerbation <SALAS Clarke - Last Filed: 01/01/23 08:21> Patient Disposition: Home, Self-Care <SALAS Clarke - Last Filed: 01/01/23 08:21> Instructions: Asthma (DC), How to Use a Metered-Dose Inhaler (ED), How to Use a Nebuli zer (ED) <SALAS Clarke - Last Filed: 01/01/23 08:21> Prescriptions: New albuterol sulfate 90 mcg/actuation HFA aerosol inhaler 2 puff inhalation Q4-6H PRN (Reason: shortness of breath or wheezing) Qty: 8.5 0RF prednisone 20 mg tablet 20 mg PO DAILY Qty: 7 0RF albuterol sulfate 2.5 mg /3 mL (0.083 %) solution for nebulization 2.5 mg inhalation Q4-6H PRN (Reason: bronchospasm) Qty: 90 0RF No Action cetirizine 10 mg Tablet 10 mg PO DAILY ketotifen fumarate 0.025 % (0.035 %) Drops 1 drp OPHTHALMIC (EYE) BID PRN (Reason: Itching) montelukast 10 mg Tablet 10 mg PO BEDTIME fluticasone propionate 50 mcg/actuation [place],Suspension 2 spray INTRANASAL DAILY Rx Instructions: IN EACH NOSTRIL Breo Ellipta 200-25 mcg/dose Blister With Device 1 inh INHALATION DAILY Rx Instructions: RINSE MOUTH AFTER USING prednisone 20 mg tablet 40 mg PO DAILY Qty: 10 0RF albuterol sulfate 0.63 mg/3 mL Solution For Nebulization 0.63 mg INHALATION Q4-6H PRN (Reason: Wheezing) Qty: 1 0RF albuterol sulfate [ProAir HFA] 90 mcg/actuation Hfa Aerosol Inhaler 2 puff INHALATION Q4H PRN (Reason: Shortness Of Breath Or Wheezing) Qty: 1 0RF prednisone 20 mg tablet 40 mg PO DAILY 4 Days Qty: 8 0RF Vitamin Plus Low Iron 27 mg iron- 1 mg tablet 1 tab PO DAILY loratadine [Allergy Relief (loratadine)] 10 mg tablet 10 mg PO DAILY PRN (Reason: allergies) omeprazole 20 mg capsule,delayed release(DR/EC) 20 mg PO BID epinephrine 0.3 mg/0.3 mL auto-injector IM <SALAS Clarke - Last Filed: 01/01/23 08:21> Referrals: Jacquie Castle DO [Primary Care Provider] - 2 days <SALAS Clarke - Last Filed: 01/01/23 08:21> Interventions: ED Discharge Assessment Last Done: 12/29/22 23:10 <SALAS Clarke - Last Filed: 01/01/23 08:21> Discharge Date/Time: 12/29/22 23:10 <SALAS Clarke - Last Filed: 01/01/23 08:21>
[2022-12-29 18:57] LABS: Basophils Percent Auto 0.2 % (0-2); Eosinophils Absolute Auto 0.1 X10*3/uL (0.0-0.4); Eosinophils Percent Auto 0.4 % (0-4); Hematocrit 31.6 % (37.0-47.0); Hemoglobin 10.6 g/dl (12.0-16.0); Imm Gran Abs Auto 0.05 X10*3/uL (0.00-0.03); Imm Gran Pct Auto 0.3 % (0.0-0.4); Lymphocytes Absolute Auto 0.6 X10*3/uL (1.2-4.9); Lymphocytes Percent Auto 3.4 % (20-40); MANUAL DIFF FLAG SCAN; Mean Corpuscular HGB Conc 33.5 g/dl (31.0-35.0); Mean Corpuscular Hemoglobin 29.4 pg (27.0-33.0); Mean Corpuscular Volume 87.8 fL (80.0-98.0); Mean Platelet Volume 9.4 fL (9.4-12.3); Monocytes Absolute Auto 0.7 X10*3/uL (0.1-1.2); Monocytes Percent Auto 4.2 % (2-11); Neutrophils Absolute Auto 14.6 x10*3/uL (2.0-8.3); Neutrophils Percent Auto 91.5 % (45-73); Platelet Count 346 X10*3/uL (160-400); Red Cell Distribution Width 14.1 % (11.0-16.0); SCAN SMEAR FLAG 1
[2022-12-29] MEDS: Albuterol Sulfate (0.083%) 2.5 MG/3 ML VIAL.NEB 10 MG INHALE (19:03)
[2022-12-29 19:05] VITALS: BP 103/49; PULSE 127; RESP 18; O2SAT 98
--- NOTE | 2022-12-29 19:10 | PC.NURSE ---
Pt presents to the ER with an asthma exacerbation. Pt has hx of asthma and tried to treat it at home. Pt stated treatments helped for about an hour before distress began again. Pt has wheezes bilaterally in the upper lobes. Pt is currently getting a nebulizer treatment with cardiac monitoring and pulse ox monitoring in place.
[2022-12-29 19:12] LABS: Alanine Aminotransferase 8 U/L (0-31); Albumin Level 3.3 g/dL (3.5-5.0); Alkaline Phosphatase 85 U/L (39-117); Anion Gap 13 (12-20); Aspartate Amino Transferase 16 U/L (5-31); Bilirubin Total 0.6 mg/dL (0.0-1.0); Blood Urea Nitrogen 6 mg/dL (9-16); Calcium 8.7 mg/dL (8.4-10.2); Carbon Dioxide 22 mmol/L (22-29); Chloride 105 mmol/L (96-108); Creatinine Clr Calc Pharmacy 136.2; Estimated Glomerular Filt Rate > 60; Glucose Random 100 mg/dL (60-115); Magnesium 1.8 mg/dL (1.6-2.6); Potassium 3.7 mmol/L (3.3-5.1); Sodium 136 mmol/L (135-145); Total Protein 6.2 g/dL (6.5-8.0)
[2022-12-29 19:17] LABS: SLIDE REVIEW VERIFIED
[2022-12-29 19:33] LABS: Influenza A PCR NEGATIVE (Negative); Influenza B PCR NEGATIVE (Negative); Resp Syncy Virus RNA Qual PCR NEGATIVE (Negative); SARS COV2 PCR INHOUSE NEGATIVE (Negative)
[2022-12-29] MEDS: methylPREDNISolone Sod Succ 125 MG/2 ML VIAL IVPUSH (19:58)
[2022-12-29] MEDS: Magnesium Sulfate/H2O 2 GM/50 ML PIGGYBACK IV (19:59)
== END 2022-12-29 23:10 | disposition home or self-care (01) ==
PROVIDERS: Physician Assistant Medical; Emergency Provider Emergency Medicine; PCP Family Medicine
DX: O99.513 Diseases of the respiratory system complicating pregnancy, third trimester (principal); J45.901 Unspecified asthma with (acute) exacerbation; Z3A.30 30 weeks gestation of pregnancy; Z20.822 Contact with and (suspected) exposure to COVID-19; Z20.828 Contact with and (suspected) exposure to other viral communicable diseases
CPT/HCPCS: 0241U; 80053; 83735; 85025; 96365; 96366; 96375; 99284; J2930; J3475

== ENCOUNTER 2023-05-09 16:44 | Emergency (ER) | payer MEDICAID, SELFPAY ==
[2023-05-09] VITALS (7 sets, daily range): BP systolic 104–122; BP diastolic 36–72; PULSE 83–108; RESP 13–18; TEMP 36.6–37.2; O2SAT 97–100; BMI 31.6
--- NOTE | 2023-05-09 16:53 | ECG_ITS ---
Test Reason : TACARDIA Blood Pressure : / mmHG Vent. Rate : 100 BPM Atrial Rate : 100 BPM P-R Int : 138 ms QRS Dur : 088 ms QT Int : 334 ms P-R-T Axes : 026 -05 017 degrees QTc Int : 430 ms Normal sinus rhythm Normal ECG When compared with ECG of 14-JUL-2018 15:31, ST no longer depressed in Anterior leads Nonspecific T wave abnormality, improved in Inferior leads Referred By: Padmini Waters Electronically Signed By:[place]
--- NOTE | 2023-05-09 16:54 | ED_ITS ---
HPI - General Adult General Chief complaint: General Medical Stated complaint: DIzziness/severe headache/sent by Dr Time Seen by Provider: 05/09/23 17:58 Source: patient Mode of arrival: ambulatory Limitations: no limitations History of Present Illness HPI narrative: Patient is status post 3rd on 04/04 comes as been feeling dizzy for long time having headache bitemporal for at least 2-3 weeks no nausea no vomiting no fever no chills no urinary complaint dizziness gets worse whenever she stands up headache is constant for long time no light sensitivity no head injury Related Data Home Medications Medication Instructions Recorded Confirmed cetirizine 10 mg tablet 10 mg PO DAILY 09/23/20 09/23/20 fluticasone furoate 200 1 inh inhalation DAILY 09/23/20 09/23/20 mcg-vilanterol 25 mcg/dose inhalation powder (Breo Ellipta) fluticasone propionate 50 2 spray intranasal DAILY 09/23/20 09/23/20 mcg/actuation nasal spray,suspension ketotifen fumarate 0.025 % (0.035 1 drp ophthalmic (eye) BID PRN 09/23/2009/01 4/20 %) eye drops Itching montelukast 10 mg tablet 10 mg PO BEDTIME 09/23/20 09/23/20 epinephrine 0.3 mg/0.3 mL IM 09/05/22 injection, auto-injector loratadine 10 mg tablet (Allergy 10 mg PO DAILY PRN allergies 09/05/22 Relief (loratadine)) omeprazole 20 mg capsule,delayed 20 mg PO BID 09/05/22 release vitamin with calcium 1 tab PO DAILY 09/05/22 no.72-iron 27 mg-folic acid 1 mg tablet ( Vitamins Plus Low Iron) Previous Rx's Medication Instructions Recorded albuterol sulfate 0.63 mg/3 mL 0.63 mg (3 mL) inhalation Q4-6H 09/24/20 solution for nebulization PRN Wheezing #1 mL albuterol sulfate 90 mcg/actuation 2 puff inhalation Q4H PRN 09/24/20 aerosol inhaler (ProAir HFA) Shortness Of Breath Or Wheezing #1 g prednisone 20 mg tablet 40 mg PO DAILY #10 tabs 09/24/20 prednisone 20 mg tablet 40 mg PO DAILY 4 days #8 tabs 10/07/21 albuterol sulfate 2.5 mg/3 mL 2.5 mg (3 mL) inhalation Q4-6H PRN 12/29/22 (0.083 %) solution for nebulization bronchospasm #90 mL albuterol sulfate 90 mcg/actuation 2 puff inhalation Q4-6H PRN 12/29/22 aerosol inhaler shortness of breath or wheezing #8.5 grams prednisone 20 mg tablet 20 mg PO DAILY #7 tabs 12/29/22 ibuprofen 600 mg tablet 600 mg PO Q6H PRN fever or pain 05/09/23 #30 tabs Allergies Allergy/AdvReac Type Severity Reaction Status Date / Time SEASONAL ALLERGIES Allergy Intermediate RUNNY NOSE Uncoded 09/05/22 15:07 Review of Systems Review of Systems: Yes all other systems are reviewed and are negative [facility] Past Medical History Medical History Asthma section wound complication Surgical History Hx of section Family History Family History Other Asthma Social History Social History Household Members: Family Housing: Apartment Do you presently have visiting nurse or other home services: No Alcohol intake: never Smoked in Last 30 Days: No Substance Use Type: Marijuana Advance Directives: No Advance Directives Information Provided: No service: No Current occupational status: unemployed Physical Exam ED Vital Signs: Vital Signs - 24 hr 05/09/23 16:54 05/09/23 17:01 05/09/23 18:27 Temperature 98.8 F 97.8 F Pulse Rate 107 H 108 H 88 Respiratory Rate 18 13 Blood Pressure 109/36 L 104/72 105/62 Pulse Oximetry 97 99 Oxygen Delivery Method Room Air Room Air 05/09/23 18:30 05/09/23 18:28 05/09/23 18:29 Temperature 98.4 F Pulse Rate 85 83 95 Respiratory Rate 16 Blood Pressure 108/57 L 122/65 117/66 Pulse Oximetry 100 Oxygen Delivery Method Room Air 05/09/23 19:54 Temperature 98.9 F Pulse Rate 83 Respiratory Rate 16 Blood Pressure 107/50 L Pulse Oximetry 98 Oxygen Delivery Method Room Air BMI result Body Mass Index 31.6 Appearance: Alert. Oriented X3. No acute distress. Eyes: No pallor or icterus ENT: Pharynx normal. Oral Mucosa moist Neck: Normal inspection. Neck supple. CVS: Normal heart rate and rhythm. Pulses normal. Respiratory: No respiratory distress. Equal air entry bilateral, no wheezing/rales/rhonchi Abdomen: Soft and nontender. Bowel sounds are present, no mass palpable, no CVA tenderness Skin: Skin warm and dry. Normal skin color. Normal skin turgor. Extremities: No lower extremity edema. No calf tenderness Neuro: Oriented X 3. No motor deficit. No sensory deficit.No cerebellar signs , cranial nerves II-XII intact Course Course Course Narrative: RME - 32 yo female s/p on 04/04 who presents to the ER for evaluation of daily dizziness and headaches since she gave . Previously seen in the OB office for concern for incision infection and completed course of abx. She was anemic with hemoglobin of 8 which has improved to 12 with iron pills. No SOB or chest pain but reporting palpitations. HR 108 in triage w/ BP 109/36. Plan: to go to room 7 per charge nurse - labs, EKG to start. plan per provider in the main ER. Medications Administered Discontinued Medications Generic Name Dose Route Start Last Admin Trade Name Freq PRN Reason Stop Dose Admin Sodium Chloride 1,000 mls @ 999 mls/hr 05/09/23 18:10 05/09/23 18:25 Ns IV 05/09/23 19:10 999 mls/hr .Q1H1M ONE Administration Ketorolac Tromethamine 30 mg 05/09/23 18:10 05/09/23 18:25 Ketorolac Tromethamine 30 Mg/Ml Vial IVPUSH 05/09/23 18:11 30 mg ONCE ONE Administration Medical Decision Making Medical Decision Making MDM Narrative: Patient nonspecific dizziness and headache no orthostatic hypotension symptoms improved with Toradol and IV fluids which are patient home on Fioricet Lab Data [facility] Lab Attestation statement: I reviewed the patient's lab results. 05/09/23 17:20 05/09/23 17:20 Labs: Lab Results 05/09/23 05/09/23 05/09/23 Range/Units 17:20 17:20 17:20 WBC 10.2 (4.8-10.8) X10*3/uL RBC 4.03 L (4.20-5.50) X10*6/uL Hgb 10.9 L (12.0-16.0) g/dl Hct 35.1 L (37.0-47.0) % MCV 87.1 (80.0-98.0) fL MCH 27.0 (27.0-33.0) pg MCHC 31.1 (31.0-35.0) g/dl RDW 14.5 (11.0-16.0) % Plt Count 341 (160-400) X10*3/uL MPV 10.3 (9.4-12.3) fL Immature Gran % (Auto) 0.3 (0.0-0.4) % Neut % (Auto) 69.7 (45-73) % Lymph % (Auto) 20.5 (20-40) % [place] % (Auto) 8.0 (2-11) % Eos % (Auto) 1.1 (0-4) % Baso % (Auto) 0.4 (0-2) % Lymph # (Auto) 2.1 (1.2-4.9) X10*3/uL [place] # (Auto) 0.8 (0.1-1.2) X10*3/uL Eos # (Auto) 0.1 (0.0-0.4) X10*3/uL Baso # (Auto) 0.0 (0.0-0.2) X10*3/uL Abs Immat Gran (auto) 0.03 (0.00-0.03) X10*3/uL Absolute Neuts (auto) 7.1 (2.0-8.3) x10*3/uL Absolute Nucleated RBC 0.000 (0.0-0.012) X10*3/uL Nucleated RBC % (auto) 0.0 (0.0-0.2) /100WBC PT 12.3 (11.1-13.3) SEC INR 1.0 (0.9-1.1) APTT 30.1 (26.0-36.4) SEC Sodium 139 (135-145) mmol/L Potassium 3.8 (3.3-5.1) mmol/L Chloride 106 (96-108) mmol/L Carbon Dioxide 25 (22-29) mmol/L Anion Gap 12 (12-20) BUN 5 L (9-16) mg/dL Creatinine 0.80 (0.5-1.4) mg/dL Estim Creat Clear Calc 103.5 Estimated GFR > 60 Random Glucose 86 (60-115) mg/dL Lactic Acid (0.5-2.0) mmol/L Calcium 9.4 D (8.4-10.2) mg/dL Magnesium 2.0 (1.6-2.6) mg/dL Total Bilirubin 0.3 (0.0-1.0) mg/dL Direct Bilirubin 0.1 (0.0-0.5) mg/dL AST 31 (5-31) U/L ALT 28 (0-31) U/L Alkaline Phosphatase 103 (39-117) U/L Total Protein 7.5 (6.5-8.0) g/dL Albumin 3.9 (3.5-5.0) g/dL TSH (0.32-4.0) uIU/mL Urine Color Urine Appearance Urine pH (5.0-9.0) Ur Specific [place] (1.005-1.025) Urine Protein (Neg-Trace) mg/dL Urine Glucose (UA) (Negative) mg/dL Urine Ketones (Negative) mg/dL Urine Blood (Negative) Urine Nitrite (Negative) Ur Leukocyte Esterase (Negative) Urine RBC (0-2) /HPF Urine WBC (0-5) /HPF Ur Squamous Epith Cells (0-2) /HPF Urine Bacteria (None Seen) Hyaline Casts (0-2) /LPF 05/09/23 05/09/23 05/09/23 Range/Units 17:20 17:20 18:26 WBC (4.8-10.8) X10*3/uL RBC (4.20-5.50) X10*6/uL Hgb (12.0-16.0) g/dl Hct (37.0-47.0) % MCV (80.0-98.0) fL MCH (27.0-33.0) pg MCHC (31.0-35.0) g/dl RDW (11.0-16.0) % Plt Count (160-400) X10*3/uL MPV (9.4-12.3) fL Immature Gran % (Auto) (0.0-0.4) % Neut % (Auto) (45-73) % Lymph % (Auto) (20-40) % [place] % (Auto) (2-11) % Eos % (Auto) (0-4) % Baso % (Auto) (0-2) % Lymph # (Auto) (1.2-4.9) X10*3/uL [place] # (Auto) (0.1-1.2) X10*3/uL Eos # (Auto) (0.0-0.4) X10*3/uL Baso # (Auto) (0.0-0.2) X10*3/uL Abs Immat Gran (auto) (0.00-0.03) X10*3/uL Absolute Neuts (auto) (2.0-8.3) x10*3/uL Absolute Nucleated RBC (0.0-0.012) X10*3/uL Nucleated RBC % (auto) (0.0-0.2) /100WBC PT (11.1-13.3) SEC INR (0.9-1.1) APTT (26.0-36.4) SEC Sodium (135-145) mmol/L Potassium (3.3-5.1) mmol/L Chloride (96-108) mmol/L Carbon Dioxide (22-29) mmol/L Anion Gap (12-20) BUN (9-16) mg/dL Creatinine (0.5-1.4) mg/dL Estim Creat Clear Calc Estimated GFR Random Glucose (60-115) mg/dL Lactic Acid 1.0 (0.5-2.0) mmol/L Calcium (8.4-10.2) mg/dL Magnesium (1.6-2.6) mg/dL Total Bilirubin (0.0-1.0) mg/dL Direct Bilirubin (0.0-0.5) mg/dL AST (5-31) U/L ALT (0-31) U/L Alkaline Phosphatase (39-117) U/L Total Protein (6.5-8.0) g/dL Albumin (3.5-5.0) g/dL TSH 0.45 (0.32-4.0) uIU/mL Urine Color Dark Yellow Urine Appearance Cloudy Urine pH 6.0 (5.0-9.0) Ur Specific [place] 1.020 (1.005-1.025) Urine Protein Negative (Neg-Trace) mg/dL Urine Glucose (UA) Negative (Negative) mg/dL Urine Ketones Trace (Negative) mg/dL Urine Blood Negative (Negative) Urine Nitrite Negative (Negative) Ur Leukocyte Esterase Trace H (Negative) Urine RBC 3-5 H (0-2) /HPF Urine WBC 6-10 H (0-5) /HPF Ur Squamous Epith Cells 11-20 (0-2) /HPF Urine Bacteria 1+ (None Seen) Hyaline Casts 0-2 (0-2) /LPF Discharge Plan Discharge Clinical Impression: Headache, tension-type Patient Disposition: Home, Self-Care Instructions: Tension Headache (ED), Dizziness (ED) Additional Instructions: Drink plenty of fluids Ibuprofen for headache Follow with PCP if not better Prescriptions: New ibuprofen 600 mg tablet 600 mg PO Q6H PRN (Reason: fever or pain) Qty: 30 0RF No Action cetirizine 10 mg Tablet 10 mg PO DAILY ketotifen fumarate 0.025 % (0.035 %) Drops 1 drp OPHTHALMIC (EYE) BID PRN (Reason: Itching) montelukast 10 mg Tablet 10 mg PO BEDTIME fluticasone propionate 50 mcg/actuation [place],Suspension 2 spray INTRANASAL DAILY Rx Instructions: IN EACH NOSTRIL Breo Ellipta 200-25 mcg/dose Blister With Device 1 inh INHALATION DAILY Rx Instructions: RINSE MOUTH AFTER USING prednisone 20 mg tablet 40 mg PO DAILY Qty: 10 0RF albuterol sulfate 0.63 mg/3 mL Solution For Nebulization 0.63 mg INHALATION Q4-6H PRN (Reason: Wheezing) Qty: 1 0RF albuterol sulfate [ProAir HFA] 90 mcg/actuation Hfa Aerosol Inhaler 2 puff INHALATION Q4H PRN (Reason: Shortness Of Breath Or Wheezing) Qty: 1 0RF prednisone 20 mg tablet 40 mg PO DAILY 4 Days Qty: 8 0RF albuterol sulfate 90 mcg/actuation HFA aerosol inhaler 2 puff inhalation Q4-6H PRN (Reason: shortness of breath or wheezing) Qty: 8.5 0RF prednisone 20 mg tablet 20 mg PO DAILY Qty: 7 0RF albuterol sulfate 2.5 mg /3 mL (0.083 %) solution for nebulization 2.5 mg inhalation Q4-6H PRN (Reason: bronchospasm) Qty: 90 0RF Vitamin Plus Low Iron 27 mg iron- 1 mg tablet 1 tab PO DAILY loratadine [Allergy Relief (loratadine)] 10 mg tablet 10 mg PO DAILY PRN (Reason: allergies) omeprazole 20 mg capsule,delayed release(DR/EC) 20 mg PO BID epinephrine 0.3 mg/0.3 mL auto-injector IM Interventions: ED Discharge Assessment Last Done: 05/09/23 20:44 Discharge Date/Time: 05/09/23 20:45
[2023-05-09 17:28] LABS: MANUAL DIFF FLAG NO
[2023-05-09 17:37] LABS: Basophils Percent Auto 0.4 % (0-2); Eosinophils Absolute Auto 0.1 X10*3/uL (0.0-0.4); Eosinophils Percent Auto 1.1 % (0-4); Hematocrit 35.1 % (37.0-47.0); Hemoglobin 10.9 g/dl (12.0-16.0); Imm Gran Abs Auto 0.03 X10*3/uL (0.00-0.03); Imm Gran Pct Auto 0.3 % (0.0-0.4); Lymphocytes Absolute Auto 2.1 X10*3/uL (1.2-4.9); Lymphocytes Percent Auto 20.5 % (20-40); Mean Corpuscular HGB Conc 31.1 g/dl (31.0-35.0); Mean Corpuscular Volume 87.1 fL (80.0-98.0); Mean Platelet Volume 10.3 fL (9.4-12.3); Monocytes Absolute Auto 0.8 X10*3/uL (0.1-1.2); Neutrophils Absolute Auto 7.1 x10*3/uL (2.0-8.3); Neutrophils Percent Auto 69.7 % (45-73); Platelet Count 341 X10*3/uL (160-400); Red Blood Count 4.03 X10*6/uL (4.20-5.50); Red Cell Distribution Width 14.5 % (11.0-16.0); White Blood Count 10.2 X10*3/uL (4.8-10.8)
[2023-05-09 17:38] LABS: Prothrombin Time 12.3 SEC (11.1-13.3)
[2023-05-09 17:41] LABS: Partial Thromboplastin Time 30.1 SEC (26.0-36.4)
[2023-05-09 17:46] LABS: Alanine Aminotransferase 28 U/L (0-31); Albumin Level 3.9 g/dL (3.5-5.0); Alkaline Phosphatase 103 U/L (39-117); Anion Gap 12 (12-20); Aspartate Amino Transferase 31 U/L (5-31); Bilirubin Direct 0.1 mg/dL (0.0-0.5); Bilirubin Total 0.3 mg/dL (0.0-1.0); Blood Urea Nitrogen 5 mg/dL (9-16); Calcium 9.4 mg/dL (8.4-10.2); Carbon Dioxide 25 mmol/L (22-29); Chloride 106 mmol/L (96-108); Creatinine Clr Calc Pharmacy 103.5; Estimated Glomerular Filt Rate > 60; Glucose Random 86 mg/dL (60-115); Potassium 3.8 mmol/L (3.3-5.1); Sodium 139 mmol/L (135-145); Total Protein 7.5 g/dL (6.5-8.0)
[2023-05-09 18:07] LABS: TSH reflex Free T4 0.45 uIU/mL (0.32-4.0)
--- NOTE | 2023-05-09 18:08 | PC.NURSE ---
pt had 04/04, reporting pain and scant drainage from site. completed antibiotics. alert and oriented, resting comfortably in room. iv established, labs drawn and sent.
[2023-05-09] MEDS: 0.9 % Sodium Chloride 1,000 ML 999 ML IV (18:25)
[2023-05-09] MEDS: Ketorolac Tromethamine 30 MG/ML VIAL IVPUSH (18:25)
[2023-05-09 18:35] LABS: Appearance Urine Cloudy; Color Urine Dark Yellow; Glucose Urine UA Negative (Negative); Leukocyte Esterase Urine Trace (Negative); Nitrite Urine Negative (Negative); UMIC TRIGGER UACC YES; Urine Blood Negative (Negative); Urine Ketones Trace mg/dL (Negative); Urine Protein Negative (Neg-Trace)
[2023-05-09 18:40] LABS: Bacteria Urine 1+ (None Seen); Hyaline Casts Urine 0-2 /LPF (0-2); UACC Culture Trigger YES
--- NOTE | 2023-05-09 19:55 | MHC.EDTECH ---
2000 ROUNDING DONE ,VITALS SIGN TAKEN ,PATIENT RESTING IN BED ,RN BECKY IS AWARE OF PATIENT LOW BP .
== END 2023-05-09 20:45 | disposition home or self-care (01) ==
PROVIDERS: Physician Assistant; Emergency Provider Internal Medicine
DX: R42 Dizziness and giddiness (principal); R51.9 Headache, unspecified; R00.0 Tachycardia, unspecified; Z79.899 Other long term (current) drug therapy
CPT/HCPCS: 36415; 80048; 80076; 81001; 83605; 83735; 84443; 85025; 85610; 85730; 87086; 93005; 96374; 99284; 99285; J1885

== ENCOUNTER → 2023-05-09 16:53 | Outpatient (BNV) | payer MEDICAID, SELFPAY | PROVIDERS: Emergency Provider Internal Medicine; Visit Provider Internal Medicine Cardiovascular Disease | DX: R00.0 Tachycardia, unspecified (principal) | CPT/HCPCS: 93010 ==

== ENCOUNTER 2023-11-17 11:39 | Emergency (ER) | payer MEDICAID, SELFPAY ==
--- NOTE | ~2023-11-17 | XR_ITS ---
EXAMINATION: XR CHEST CLINICAL INFORMATION: Cough and wheezing COMPARISON: 09/23/2020 TECHNIQUE: 2 views of the chest were obtained. FINDINGS: No significant abnormality is noted involving the heart, lungs, mediastinum, bony thorax or soft tissues. XR/XR chest 2V IMPRESSION: Unremarkable examination.
[2023-11-17 11:44] VITALS: BP 104/53; PULSE 89; RESP 16; TEMP 36.4; O2SAT 95; BMI 30.9
--- NOTE | 2023-11-17 11:44 | ED_ITS ---
HPI - Nausea/Vomiting/Diarrhea General Chief complaint: Nausea/Vomiting/Diarrhea Stated complaint: vomiting Time Seen by Provider: 11/17/23 13:30 Source: patient and RN notes reviewed Mode of arrival: ambulatory Limitations: no limitations History of Present Illness HPI Narrative: This is a 32-year-old female, with a history of asthma, presenting to the emergency department with multiple complaints. Patient states that 2 weeks ago she developed a headache, body aches, subjective fevers, chills and cough. She states that the body aches and fevers and chills have resolved however still has a headache. She states that she developed diarrhea 5 days ago as well as abdominal cramping, and nausea. She continues to have wheezing and cough. She denies any fevers, chills, chest pain, vomiting. She denies taking any medications at home to treat her current symptoms. No other complaints or concerns at this time. MD elicited complaint: nausea, diarrhea and abdominal pain Description of vomiting: watery Associated nausea: Yes Associated abdominal pain: Yes Location of pain: diffuse Radiation: diffuse Pain consistency: constant Severity: mild Quality: cramping Exacerbating factors: none Relieving factors: none Associated symptoms: cough, fever/chills, headaches and nausea/vomiting Related Data Home Medications Medication Instructions Recorded Confirmed cetirizine 10 mg tablet 10 mg PO DAILY 09/23/20 09/23/20 fluticasone furoate 200 1 inh inhalation DAILY 09/23/20 09/23/20 mcg-vilanterol 25 mcg/dose inhalation powder (Breo Ellipta) fluticasone propionate 50 2 spray intranasal DAILY 09/23/20 09/23/20 mcg/actuation nasal spray,suspension ketotifen fumarate 0.025 % (0.035 1 drp ophthalmic (eye) BID PRN 09/23/20 09/23/20 %) eye drops Itching montelukast 10 mg tablet 10 mg PO BEDTIME 09/23/20 09/23/20 epinephrine 0.3 mg/0.3 mL IM 09/05/22 injection, auto-injector loratadine 10 mg tablet (Allergy 10 mg PO DAILY PRN allergies 09/05/22 Relief (loratadine)) omeprazole 20 mg capsule,delayed 20 mg PO BID 09/05/22 release vitamin with calcium 1 tab PO DAILY 09/05/22 no.72-iron 27 mg-folic acid 1 mg tablet ( Vitamins Plus Low Iron) Previous Rx's Medication Instructions Recorded albuterol sulfate 0.63 mg/3 mL 0.63 mg (3 mL) inhalation Q4-6H 09/24/20 solution for nebulization PRN Wheezing #1 mL albuterol sulfate 90 mcg/actuation 2 puff inhalation Q4H PRN 09/24/20 aerosol inhaler (ProAir HFA) Shortness Of Breath Or Wheezing #1 g prednisone 20 mg tablet 40 mg (2 x 20 mg) PO DAILY #10 tabs 09/24/20 prednisone 20 mg tablet 40 mg (2 x 20 mg) PO DAILY 4 days 10/07/21 #8 tabs albuterol sulfate 2.5 mg/3 mL 2.5 mg (3 mL) inhalation Q4-6H PRN 12/29/22 (0.083 %) solution for nebulization bronchospasm #90 mL albuterol sulfate 90 mcg/actuation 2 puff inhalation Q4-6H PRN 12/29/22 aerosol inhaler shortness of breath or wheezing #8.5 grams prednisone 20 mg tablet 20 mg PO DAILY #7 tabs 12/29/22 ibuprofen 600 mg tablet 600 mg PO Q6H PRN fever or pain 05/09/23 #30 tabs cefuroxime axetil 250 mg tablet 250 mg PO BID 7 days #14 tabs 11/17/23 ondansetron 4 mg disintegrating 4 mg PO Q6-8H PRN nausea and 11/17/23 tablet vomiting #14 tabs prednisone 20 mg tablet 40 mg (2 x 20 mg) PO DAILY 4 days 11/17/23 #8 tabs Allergies Allergy/AdvReac Type Severity Reaction Status Date / Time SEASONAL ALLERGIES Allergy Intermediate RUNNY NOSE Uncoded 09/05/22 15:07 Review of Systems 2 Review of Systems: Yes all other systems are reviewed and are negative Constitutional: Constitutional: Reports as per HPI Gastrointestinal: Gastrointestinal: Reports nausea PMFSH Past Medical History Medical History Asthma section wound complication Surgical History Hx of section Family History Family History Other Asthma Social History Social History Household Members: Family Housing: Apartment Do you presently have visiting nurse or other home services: No Alcohol intake: never Smoked in Last 30 Days: No Substance Use Type: Marijuana Advance Directives: No Advance Directives Information Provided: No Patient : No service: No Current occupational status: unemployed Physical Exam 2 Vital Signs: Vital Signs: Last Vital Signs Temp 98.6 F 11/17/23 17:46 Pulse 86 11/17/23 17:46 Resp 14 11/17/23 17:46 BP 94/43 L 11/17/23 17:46 Pulse Ox 95 11/17/23 17:46 O2 Del Method Room Air 11/17/23 17:46 BMI result Body Mass Index 30.9 Const: General: cooperative, comfortable and no acute distress O rientation/consciousness: patient oriented x3 Limitations: no limitations HEENT: Head: Yes normal to inspection, Yes normocephalic and Yes atraumatic Ears: hearing grossly normal bilaterally General nose exam: Normal external nose present Face and sinus: Yes normal facial exam Mouth: Normal oral and palatal mucosa present, oropharynx normal and moist mucous membranes Throat: Yes posterior oropharynx normal Eyes: General: appearance normal, both eyes and all related structures E yelids: Yes eyelids normal Conjunctivae: conjunctivae normal Sclerae: s clerae normal Pupils: Equal, round and reactive pupils present EOM: EOMs intact bilaterally Neck: Neck: Yes normal visual inspection, Yes full ROM and Yes no lymphadenopathy Lymphatic: no lymphadenopathy noted Chest: Chest palpation & inspection: normal inspection of the chest Resp: Other: Inspiratory and expiratory wheezes noted in bilateral lung bases Effort & Inspection: normal respiratory effort and able to speak in complete sentences Cardio: Rate: regular rate Rhythm: regular rhythm Heart sounds: S1 normal heart sound present and S2 normal heart sound present GI: Other: Abdomen is soft, nontender, nondistended Inspection: Yes normal to inspection Skin: General skin exam: no rashes or lesions noted Trauma: no lacerations or abrasions Wounds: no wounds Neuro: General: patient oriented x3 and moves all extremities Cranial nerves: Yes Equal, round and reactive pupils present Extrem: General: Yes normal to inspection Right upper extremity: normal to inspection Left upper extremity: normal to inspection Right lower extremity: normal to inspection Left lower extremity: normal to inspection Course Course Course Narrative: RME: 32 year-old F w/ PMHx asthma presenting to the ED c/o URI sx w/fever, myalgias x2 weeks ago improving at present, now with nausea & nonbloody diarrhea x5 days. Admits to abdominal cramping. denies travel. Admits was recently on Abx from Dentist like 2 weeks ago Labs, UA, U-preg, viral testing ordered Full HPI, ROS and PE to be performed by primary ED provider. Reevaluation(s) Reevaluation #1: Patient re-evaluated, lungs clear auscultation after receiving nebulizer and Solu-Medrol. Patient is still reporting diffuse abdominal pain, however abdomen remains to be soft and nontender. Will medicate with GI cocktail and re- evaluate. Urine appears to be contaminated, however given symptomatic, will treat. Time: 16:07 Reevaluation #2: Sign-out given to my colleague, Brady Locke pending PO challenge and re- evaluation. Time: 16:48 Reevaluation #3: Patient reports feeling better and requesting discharge. Time: 17:54 Medications Administered Discontinued Medications Generic Name Dose Route Start Last Admin Trade Name Freq PRN Reason Stop Dose Admin Al Hydroxide/Mg Hydroxide 30 ml 11/17/23 16:06 11/17/23 16:14 Magnesium Hydrox/Alum Hydrox 30 Ml Oral.Susp PO 11/17/23 16:07 30 ml ONCE ONE Administration Belladonna Alkaloids/Phenobarbital 10 ml 11/17/23 16:06 11/17/23 16:15 Phenobarb/Hyoscy/Atropine/Scop 10 Ml Elixir PO 11/17/23 16:07 10 ml ONCE ONE Administration Albuterol Sulfate 2.5 mg/ 0 mg 11/17/23 14:23 11/17/23 14:26 Albuterol/Ipratropium 3 ml INHALE 11/17/23 14:24 5 dose ONCE ONE Administration Sodium Chloride 1,000 mls @ 999 mls/hr 11/17/23 14:04 11/17/23 16:30 Ns IV 11/17/23 15:04 Infused .Q1H1M ONE Infusion Lidocaine HCl 15 ml 11/17/23 16:06 11/17/23 16:14 Lidocaine Hcl Viscous 2 % 15 Ml Solution MUCOUS MEM 11/17/23 16:07 15 ml ONCE ONE Administration Methylprednisolone Sodium Succinate 125 mg 11/17/23 14:03 11/17/23 14:48 Methylprednisolone Sod Succ 125 Mg/2 Ml Vial IVPUSH 11/17/23 14:04 125 mg ONCE ONE Administration Ondansetron HCl 4 mg 11/17/23 14:04 11/17/23 14:47 Ondansetron Hcl 4 Mg/2 Ml Vial IVPUSH 11/17/23 14:05 4 mg ONCE ONE Administration Potassium Chloride 40 meq 11/17/23 14:07 11/17/23 14:48 Potassium Chloride Er 20 Meq Tab.Er.Prt PO 11/17/23 14:08 40 meq ONCE ONE Administration Medical Decision Making Medical Decision Making [facility] Narrative: This is a 32-year-old female, with a history of asthma, presenting to the emergency department with complaints of nausea, diarrhea, diffuse abdominal pain, cough, and headache. She states that she was seen by her dentist 1 week ago for dental abscess and was given an antibiotic, unsure which. She states that she has had an ongoing illness for the last 2 weeks. She states that she developed diarrhea shortly after starting the antibiotic. No bloody or black stool. On arrival, patient mildly hypotensive at 104/53, abdomen is soft, nontender. Lungs with inspiratory and expiratory wheezes at bilateral lung bases, she is speaking in full sentences under no acute distress. She also has Plan: Labs, EKG, chest x-ray, viral swabs, UA Differential Diagnosis Differential Diagnoses: The differential diagnosis associated with the presentation includes Viral syndrome, URI, asthma exacerbation, electrolyte derangement Lab Data [facility] Lab Attestation statement: I reviewed the patient's lab results. Slight leukopenia 4.1, hypokalemic at 3.1, creatinine with no evidence of SHIRA, AST slightly elevated at 32. Urine with large blood, as well as bacteria. Given patient is symptomatic, this could be the start of a urinary tract infection. 11/17/23 11:58 11/17/23 11:58 Labs: Lab Results 11/17/23 11/17/23 Range/Units 11:58 12:57 WBC 4.1 L (4.8-10.8) X10*3/uL RBC 4.77 (4.20-5.50) X10*6/uL Hgb 13.1 D (12.0-16.0) g/dl Hct 40.4 (37.0-47.0) % MCV 84.7 (80.0-98.0) fL MCH 27.5 (27.0-33.0) pg MCHC 32.4 (31.0-35.0) g/dl RDW 13.3 (11.0-16.0) % Plt Count 469 H D (160-400) X10*3/uL MPV 9.7 (9.4-12.3) fL Immature Gran % (Auto) 0.0 (0.0-0.4) % Neut % (Auto) 45.4 (45-73) % Lymph % (Auto) 38.2 (20-40) % [place] % (Auto) 15.2 H (2-11) % Eos % (Auto) 1.0 (0-4) % Baso % (Auto) 0.2 (0-2) % Lymph # (Auto) 1.6 (1.2-4.9) X10*3/uL [place] # (Auto) 0.6 (0.1-1.2) X10*3/uL Eos # (Auto) 0.0 (0.0-0.4) X10*3/uL Baso # (Auto) 0.0 (0.0-0.2) X10*3/uL Abs Immat Gran (auto) 0.00 (0.00-0.03) X10*3/uL Absolute Neuts (auto) 1.9 L (2.0-8.3) x10*3/uL Absolute Nucleated RBC 0.000 (0.0-0.012) X10*3/uL Nucleated RBC % (auto) 0.0 (0.0-0.2) /100WBC Sodium 139 (135-145) mmol/L Potassium 3.1 L (3.3-5.1) mmol/L Chloride 106 (96-108) mmol/L Carbon Dioxide 23 (22-29) mmol/L Anion Gap 13 (12-20) BUN 6 L (9-16) mg/dL Creatinine 0.74 (0.5-1.4) mg/dL Estim Creat Clear Calc 110.7 Estimated GFR > 60 Random Glucose 76 (60-115) mg/dL Calcium 9.4 (8.4-10.2) mg/dL Magnesium 2.1 (1.6-2.6) mg/dL Total Bilirubin 0.3 (0.0-1.0) mg/dL Direct Bilirubin 0.2 (0.0-0.5) mg/dL AST 32 H (5-31) U/L ALT 29 (0-31) U/L Alkaline Phosphatase 99 (39-117) U/L Total Protein 7.9 (6.5-8.0) g/dL Albumin 4.1 (3.5-5.0) g/dL Lipase 19 (8-78) U/L Urine Color Dark Yellow Urine Appearance Cloudy Urine pH 6.0 (5.0-9.0) Ur Specific [place] 1.025 (1.005-1.025) Urine Protein 30 (1+) H (Neg-Trace) mg/dL Urine Glucose (UA) Negative (Negative) mg/dL Urine Ketones Trace (Negative) mg/dL Urine Blood Large (3+) H (Negative) Urine Nitrite Negative (Negative) Ur Leukocyte Esterase Negative (Negative) Urine RBC 11-20 H (0-2) /HPF Urine WBC 0-5 (0-5) /HPF Ur Squamous Epith Cells 11-20 (0-2) /HPF Urine Bacteria 4+ (None Seen) Hyaline Casts 3-5 (0-2) /LPF Urine Test NEGATIVE (NEGATIVE) COVID-19 (CRYSTAL) Negative (Negative) COVID-19 Clin Com See Note Influenza Type A (JANICE) Negative (Negative) Influenza Type B (JANICE) Negative (Negative) Influenza A & B Note See Note Independent Interpretation I performed an independent interpretation of an: Plain X-Ray Radiology Impression Discussion of test interpretation with radiology: I have reviewed the radiologist's reading. Discharge Plan Discharge Clinical Impression: UTI (urinary tract infection), Asthma exacerbation, Gastritis Patient Disposition: Still a Patient Additional Instructions: You were seen in the emergency department for multiple complaints. You have evidence for urinary tract infection, please complete full course of antibiotics even if your feeling better. Take prescribed prednisone as directed, finish the entire course even if your feeling better. Start this tomorrow as you already received a dose today. Continue taking albuterol as needed. Drink plenty of fluids get plenty of rest. Stewart diet avoiding fried or spicy food will also help with your symptoms. If any new or worsening symptoms occur including but not limited to worsening abdominal pain, chest pain or shortness of breath, please return for re- evaluation. Prescriptions: New ondansetron 4 mg tablet,disintegrating 4 mg PO Q6-8H PRN (Reason: nausea and vomiting) Qty: 14 0RF prednisone 20 mg tablet 40 mg PO DAILY 4 Days Qty: 8 0RF cefuroxime axetil 250 mg tablet 250 mg PO BID 7 Days Qty: 14 0RF No Action cetirizine 10 mg Tablet 10 mg PO DAILY ketotifen fumarate 0.025 % (0.035 %) Drops 1 drp OPHTHALMIC (EYE) BID PRN (Reason: Itching) montelukast 10 mg Tablet 10 mg PO BEDTIME fluticasone propionate 50 mcg/actuation [place],Suspension 2 spray INTRANASAL DAILY Rx Instructions: IN EACH NOSTRIL Breo Ellipta 200-25 mcg/dose Blister With Device 1 inh INHALATION DAILY Rx Instructions: RINSE MOUTH AFTER USING prednisone 20 mg tablet 40 mg PO DAILY Qty: 10 0RF albuterol sulfate 0.63 mg/3 mL Solution For Nebulization 0.63 mg INHALATION Q4-6H PRN (Reason: Wheezing) Qty: 1 0RF albuterol sulfate [ProAir HFA] 90 mcg/actuation Hfa Aerosol Inhaler 2 puff INHALATION Q4H PRN (Reason: Shortness Of Breath Or Wheezing) Qty: 1 0RF prednisone 20 mg tablet 40 mg PO DAILY 4 Days Qty: 8 0RF ibuprofen 600 mg tablet 600 mg PO Q6H PRN (Reason: fever or pain) Qty: 30 0RF albuterol sulfate 90 mcg/actuation HFA aerosol inhaler 2 puff inhalation Q4-6H PRN (Reason: shortness of breath or wheezing) Qty: 8.5 0RF prednisone 20 mg tablet 20 mg PO DAILY Qty: 7 0RF albuterol sulfate 2.5 mg /3 mL (0.083 %) solution for nebulization 2.5 mg inhalation Q4-6H PRN (Reason: bronchospasm) Qty: 90 0RF Vitamin Plus Low Iron 27 mg iron- 1 mg tablet 1 tab PO DAILY loratadine [Allergy Relief (loratadine)] 10 mg tablet 10 mg PO DAILY PRN (Reason: allergies) omeprazole 20 mg capsule,delayed release(DR/EC) 20 mg PO BID epinephrine 0.3 mg/0.3 mL auto-injector IM
[2023-11-17 12:05] LABS: MANUAL DIFF FLAG NO
[2023-11-17 12:07] LABS: Basophils Percent Auto 0.2 % (0-2); Hematocrit 40.4 % (37.0-47.0); Hemoglobin 13.1 g/dl (12.0-16.0); Lymphocytes Absolute Auto 1.6 X10*3/uL (1.2-4.9); Lymphocytes Percent Auto 38.2 % (20-40); Mean Corpuscular HGB Conc 32.4 g/dl (31.0-35.0); Mean Corpuscular Hemoglobin 27.5 pg (27.0-33.0); Mean Corpuscular Volume 84.7 fL (80.0-98.0); Mean Platelet Volume 9.7 fL (9.4-12.3); Monocytes Absolute Auto 0.6 X10*3/uL (0.1-1.2); Monocytes Percent Auto 15.2 % (2-11); Neutrophils Absolute Auto 1.9 x10*3/uL (2.0-8.3); Neutrophils Percent Auto 45.4 % (45-73); Platelet Count 469 X10*3/uL (160-400); Red Blood Count 4.77 X10*6/uL (4.20-5.50); Red Cell Distribution Width 13.3 % (11.0-16.0); White Blood Count 4.1 X10*3/uL (4.8-10.8)
[2023-11-17 12:20] LABS: Alanine Aminotransferase 29 U/L (0-31); Albumin Level 4.1 g/dL (3.5-5.0); Alkaline Phosphatase 99 U/L (39-117); Anion Gap 13 (12-20); Aspartate Amino Transferase 32 U/L (5-31); Bilirubin Direct 0.2 mg/dL (0.0-0.5); Bilirubin Total 0.3 mg/dL (0.0-1.0); Blood Urea Nitrogen 6 mg/dL (9-16); Calcium 9.4 mg/dL (8.4-10.2); Carbon Dioxide 23 mmol/L (22-29); Chloride 106 mmol/L (96-108); Creatinine Clr Calc Pharmacy 110.7; Estimated Glomerular Filt Rate > 60; Glucose Random 76 mg/dL (60-115); Lipase 19 U/L (8-78); Magnesium 2.1 mg/dL (1.6-2.6); Potassium 3.1 mmol/L (3.3-5.1); Sodium 139 mmol/L (135-145); Total Protein 7.9 g/dL (6.5-8.0)
[2023-11-17 12:22] LABS: COVID-19 Test Negative (Negative); IDNOW Serial# 08D9AD1C; IDNOW Serial# 152EDE1D; Influenza A Negative (Negative); Influenza B2 Negative (Negative)
[2023-11-17 13:05] LABS: Appearance Urine Cloudy; Color Urine Dark Yellow; Glucose Urine UA Negative (Negative); Leukocyte Esterase Urine Negative (Negative); Nitrite Urine Negative (Negative); Specific Gravity - Urine 1.025 (1.005-1.025); UMIC TRIGGER UACC YES; Urine Blood Large (3+) (Negative); Urine Ketones Trace mg/dL (Negative); Urine Protein 30 (1+) mg/dL (Neg-Trace)
[2023-11-17 13:06] LABS: UPreg QC Valid YES; Urine Pregnancy NEGATIVE (NEGATIVE)
[2023-11-17 13:17] LABS: Bacteria Urine 4+ (None Seen); WBC Urine 0-5 /HPF (0-5)
--- NOTE | 2023-11-17 14:02 | ECG_ITS ---
Test Reason : HYPOKALEMIA Blood Pressure : / mmHG Vent. Rate : 079 BPM Atrial Rate : 079 BPM P-R Int : 148 ms QRS Dur : 086 ms QT Int : 374 ms P-R-T Axes : 032 000 031 degrees QTc Int : 428 ms Normal sinus rhythm Normal ECG When compared with ECG of 09-MAY-2023 17:13, No significant change was found Referred By: Abigail Handley Electronically Signed By:[place]
[2023-11-17] MEDS: Albuterol Sulfate 2.5 MG, Albuterol/Iprat 2.5/0.5MG 3 ML 3 ML INHALE (14:26)
[2023-11-17 14:28] VITALS: PULSE 84; RESP 18; O2SAT 96
[2023-11-17] MEDS: ondansetron HCL 4 MG/2 ML VIAL IVPUSH (14:47)
[2023-11-17] MEDS: methylPREDNISolone Sod Succ 125 MG/2 ML VIAL IVPUSH (14:48)
[2023-11-17] MEDS: Potassium Chloride ER 20 MEQ TAB.ER.PRT 40 MEQ PO (14:48)
[2023-11-17] MEDS: 0.9 % Sodium Chloride 1,000 ML 999 ML IV (14:56)
[2023-11-17] MEDS: Lidocaine HCl Viscous 2 % 15 ML SOLUTION MUCOUS MEM (16:14)
[2023-11-17] MEDS: Magnesium Hydrox/Alum Hydrox 30 ML ORAL.SUSP PO (16:14)
[2023-11-17] MEDS: PHENobarb/Hyoscy/Atropine/Scop 10 ML ELIXIR PO (16:15)
[2023-11-17 17:46] VITALS: BP 94/43; PULSE 86; RESP 14; TEMP 37; O2SAT 95
== END 2023-11-17 18:06 | disposition home or self-care (01) ==
PROVIDERS: Physician Assistant; Emergency Provider Internal Medicine
DX: N39.0 Urinary tract infection, site not specified (principal); J45.901 Unspecified asthma with (acute) exacerbation; K29.70 Gastritis, unspecified, without bleeding; Z11.52 Encounter for screening for COVID-19; Z79.899 Other long term (current) drug therapy
CPT/HCPCS: 71046; 80048; 80076; 81001; 81025; 83690; 83735; 85025; 87040; 87502; 87635; 93005; 94640; 96361; 96374; 96375; 99284; 99285; J2405; J2930

== ENCOUNTER → 2023-11-17 14:02 | Outpatient (BNV) | payer MEDICAID, SELFPAY | PROVIDERS: Emergency Provider Internal Medicine; Visit Provider Internal Medicine Cardiovascular Disease | DX: E87.6 Hypokalemia (principal) | CPT/HCPCS: 93010 ==

== ENCOUNTER 2024-01-18 18:28 | Outpatient (REF) | payer MEDICAID, SELFPAY ==
[2024-01-19 10:13] LABS: CT PCR NOT DETECTED (Not Detect.); NG PCR NOT DETECTED (Not Detect.)
== END 2024-01-18 18:29 | disposition home or self-care (01) ==
LOC: HO.HHCLNP 18:28
PROVIDERS: Visit Provider Nurse Practitioner Family
DX: Z11.3 Encounter for screening for infections with a predominantly sexual mode of transmission (principal)
CPT/HCPCS: 0353U

== ENCOUNTER 2024-04-02 12:50 | Outpatient (REF) | payer MEDICAID, SELFPAY ==
[2024-04-02 16:06] LABS: MANUAL DIFF FLAG NO
[2024-04-02 16:13] LABS: Basophils Percent Auto 0.5 % (0-2); Eosinophils Absolute Auto 0.1 X10*3/uL (0.0-0.4); Eosinophils Percent Auto 1.2 % (0-4); Hematocrit 38.6 % (37.0-47.0); Hemoglobin 12.5 g/dl (12.0-16.0); Imm Gran Abs Auto 0.03 X10*3/uL (0.00-0.03); Imm Gran Pct Auto 0.4 % (0.0-0.4); Lymphocytes Absolute Auto 2.7 X10*3/uL (1.2-4.9); Lymphocytes Percent Auto 32.7 % (20-40); Mean Corpuscular HGB Conc 32.4 g/dl (31.0-35.0); Mean Corpuscular Hemoglobin 27.9 pg (27.0-33.0); Mean Corpuscular Volume 86.2 fL (80.0-98.0); Mean Platelet Volume 10.9 fL (9.4-12.3); Monocytes Absolute Auto 0.5 X10*3/uL (0.1-1.2); Monocytes Percent Auto 5.5 % (2-11); Neutrophils Percent Auto 59.7 % (45-73); Platelet Count 336 X10*3/uL (160-400); Red Blood Count 4.48 X10*6/uL (4.20-5.50); Red Cell Distribution Width 14.2 % (11.0-16.0); White Blood Count 8.3 X10*3/uL (4.8-10.8)
[2024-04-02 16:39] LABS: Estimated Average Glucose 111 mg/dL; Hemoglobin A1c % 5.5 % (<6.0)
[2024-04-02 16:45] LABS: Alanine Aminotransferase 9 U/L (0-31); Albumin Level 4.2 g/dL (3.5-5.0); Alkaline Phosphatase 106 U/L (39-117); Anion Gap 11 (12-20); Aspartate Amino Transferase 16 U/L (5-31); Bilirubin Total 0.3 mg/dL (0.0-1.0); Blood Urea Nitrogen 13 mg/dL (9-16); Calcium 9.6 mg/dL (8.4-10.2); Carbon Dioxide 26 mmol/L (22-29); Chloride 104 mmol/L (96-108); Estimated Glomerular Filt Rate > 60; Glucose Random 92 mg/dL (60-115); Potassium 4.1 mmol/L (3.3-5.1); Sodium 137 mmol/L (135-145); Total Protein 7.7 g/dL (6.5-8.0)
[2024-04-02 16:48] LABS: Thyroid Stimulating Hormone 0.55 uIU/mL (0.32-4.0)
[2024-04-04 03:50] LABS: HIV AB/AG Nonreactive (Nonreactive); HIV Num 1 0.05 S/CO (0.00-0.99); ~HepC Num1 0.09 S/CO (0.00-0.79); ~Hepatitis C Antibody Nonreactive (Nonreactive)
== END 2024-04-02 12:51 | disposition home or self-care (01) ==
LOC: HO.HHCL 12:50
PROVIDERS: Visit Provider Nurse Practitioner Family
DX: Z11.4 Encounter for screening for human immunodeficiency virus [HIV] (principal); Z11.3 Encounter for screening for infections with a predominantly sexual mode of transmission; R53.83 Other fatigue
CPT/HCPCS: 36415; 80053; 83036; 84443; 85025; 86803; 87389

== ENCOUNTER 2024-06-16 13:00 | Outpatient (RCR) | payer MEDICAID, SELFPAY | END 2024-07-08 09:49 | disposition home or self-care (01) | LOC: HO.PT 13:00 | PROVIDERS: PCP Nurse Practitioner Family; Visit Provider Nurse Practitioner Family | DX: M54.2 Cervicalgia (principal) | CPT/HCPCS: 97110; 97140; 97161 ==

== ENCOUNTER 2025-03-10 11:23 | Emergency (ER) | payer MEDICAID, SELFPAY ==
--- NOTE | ~2025-03-10 | US_ITS ---
EXAMINATION: US ABDOMEN LIMITED CLINICAL INFORMATION: Epigastric pain, cholecystitis. COMPARISON: None available. TECHNIQUE: Real-time imaging of the right upper quadrant abdominal viscera. FINDINGS: PANCREAS: Visualized portions are unremarkable. LIVER: The liver is normal in size. The liver contour is normal. Parenchymal echogenicity is normal. No focal hepatic lesion. There is no intrahepatic biliary duct dilatation seen. GALLBLADDER: The gallbladder is physiologically distended without evidence of sludge, or polyps. There is a 1.1 cm gallstone present. Mild wall thickening with ringdown artifact is consistent with adenomyomatosis. No pericholecystic fluid collection. Negative sonographic Donohue's sign. COMMON BILE DUCT: Normal in caliber measuring 0.3 cm in diameter. RIGHT KIDNEY: No hydronephrosis. No renal calculi or focal parenchymal lesions. The kidney measures 10.0 cm in maximum dimension. FREE FLUID: None. US/US abdomen limited IMPRESSION: 1. Solitary gallstone measuring 1.1 cm within the neck of the gallbladder. This does not move upon decubitus positioning. Mild wall thickening with ringdown artifact likely related to adenomyomatosis. Negative sonographic Donohue's sign. Nevertheless, cholecystitis is a consideration. 2. Remainder of the exam is normal. Electronically signed by: Reece Madsen MD 03/10/2025 04:29 PM EDT
[2025-03-10 12:14] VITALS: BP 128/59; PULSE 80; RESP 16; TEMP 36.6; O2SAT 100; BMI 28.5
--- NOTE | 2025-03-10 12:16 | ECG_ITS ---
Test Reason : abdominal pain Blood Pressure : */* mmHG Vent. Rate : 78 BPM Atrial Rate : 78 BPM P-R Int : 102 ms QRS Dur : 84 ms QT Int : 382 ms P-R-T Axes : 4 10 21 degrees QTcB Int : 435 ms Sinus rhythm with sinus arrhythmia with short [place] Otherwise normal ECG When compared with ECG of 17-Nov-2023 14:17, [place] interval has decreased Referred By: Austyn Cisneros Electronically Signed By: DAVE PALOMO MD
--- NOTE | 2025-03-10 12:17 | ED_ITS ---
HPI - General Adult General Chief complaint: Abdominal Pain Stated complaint: Upper abd pain Time Seen by Provider: 03/10/25 21:53 Source: patient Limitations: no limitations History of Present Illness ED Provider: Gisselle Stahl PA-C HPI narrative: 34-year-old female with a history of asthma presents with upper abdominal discomfort for several weeks. Pain over upper abdomen nonradiating, unable to describe the nature of her discomfort. Associated postprandial pain, nausea, and the patient is noting excessive eructation with indigestion. Patient has had poor appetite. Denies diarrhea or fever. Related Data Home Medications ?Medication ?Instructions ?Recorded ?Confirmed cetirizine 10 mg tablet 10 mg PO DAILY 09/23/20 09/23/20 fluticasone furoate 200 1 inh inhalation DAILY 09/23/20 09/23/20 mcg-vilanterol 25 mcg/dose inhalation powder (Breo Ellipta) fluticasone propionate 50 2 spray intranasal DAILY 09/23/20 09/23/20 mcg/actuation nasal spray,suspension ketotifen fumarate 0.025 % (0.035 1 drp ophthalmic (eye) BID PRN 09/23/20 09/23/20 %) eye drops Itching montelukast 10 mg tablet 10 mg PO BEDTIME 09/23/20 09/23/20 epinephrine 0.3 mg/0.3 mL IM 09/05/22 injection, auto-injector loratadine 10 mg tablet (Allergy 10 mg PO DAILY PRN allergies 09/05/22 Relief (loratadine)) omeprazole 20 mg capsule,delayed 20 mg PO BID 09/05/22 release vitamin with calcium 1 tab PO DAILY 09/05/22 no.72-iron 27 mg-folic acid 1 mg tablet ( Vitamins Plus Low Iron) Previous Rx's ?Medication ?Instructions ?Recorded albuterol sulfate 0.63 mg/3 mL 0.63 mg (3 mL) inhalation Q4-6H 09/24/20 solution for nebulization PRN Wheezing #1 mL albuterol sulfate 90 mcg/actuation 2 puff inhalation Q4H PRN 09/24/20 aerosol inhaler (ProAir HFA) Shortness Of Breath Or Wheezing #1 g prednisone 20 mg tablet 40 mg (2 x 20 mg) PO DAILY #10 tabs 09/24/20 prednisone 20 mg tablet 40 mg (2 x 20 mg) PO DAILY 4 days 10/07/21 #8 tabs albuterol sulfate 2.5 mg/3 mL 2.5 mg (3 mL) inhalation Q4-6H PRN 12/29/22 (0.083 %) solution for nebulization bronchospasm #90 mL albuterol sulfate 90 mcg/actuation 2 puff inhalation Q4-6H PRN 12/29/22 aerosol inhaler shortness of breath or wheezing #8.5 grams prednisone 20 mg tablet 20 mg PO DAILY #7 tabs 12/29/22 ibuprofen 600 mg tablet 600 mg PO Q6H PRN fever or pain 05/09/23 #30 tabs cefuroxime axetil 250 mg tablet 250 mg PO BID 7 days #14 tabs 11/17/23 ondansetron 4 mg disintegrating 4 mg PO Q6-8H PRN nausea and 11/17/23 tablet vomiting #14 tabs prednisone 20 mg tablet 40 mg (2 x 20 mg) PO DAILY 4 days 11/17/23 #8 tabs ondansetron HCl 4 mg tablet 4 mg PO Q8H PRN nausea and 03/10/25 vomiting #10 tabs sucralfate 100 mg/mL oral 10 ml PO QID PRN dyspepsia #300 mL 03/10/25 suspension (Carafate) Allergies Allergy/AdvReac Type Severity Reaction Status Date / Time SEASONAL ALLERGIES Allergy Intermediate RUNNY NOSE Uncoded 03/10/25 12:19 Review of Systems 2 Review of Systems: Yes all other systems are reviewed and are negative Constitutional: Constitutional: Denies fatigue and Denies fever(s) Cardiovascular: Cardiovascular: Denies chest pain and Denies dyspnea Respiratory: Respiratory: Denies cough and Denies dyspnea Gastrointestinal: Gastrointestinal: Reports abdominal pain, Reports dyspepsia, Denies diarrhea, Reports nausea and Denies vomiting Endocrine: Endocrine: Denies fatigue PMFSH Past Medical History Attestation statement: The following information was validated with the patient. Medical History Asthma section wound complication Surgical History Hx of section Family History Family History Other Asthma Social History Social History Household Members: Family Housing: Apartment Do you presently have visiting nurse or other home services: No Alcohol intake: never Smoked in Last 30 Days: No Use of substances other than those prescribed or required for medical reasons: No Substance Use Type: Marijuana Advance Directives: No Advance Directives Information Provided: No Patient : No service: No Current occupational status: unemployed Physical Exam ED Vital Signs: Vital Signs - 24 hr 03/10/25 12:14 03/10/25 22:14 03/10/25 22:42 Temperature 97.8 F 98.2 F Pulse Rate 80 72 Respiratory Rate 16 16 16 Blood Pressure 128/59 L 113/59 L Pulse Oximetry 100 97 Oxygen Delivery Method Room Air Room Air BMI result Body Mass Index 28.5 Const Other: Alert well-appearing Orientation/consciousness: patient oriented x3 Resp Effort & Inspection: normal respiratory effort Cardio Other: Normal peripheral perfusion GI Other: Abdomen is soft, obese, mild tenderness epigastric and right upper quadrant without any guarding no distention Skin Other: Warm dry no rash Neuro General: patient oriented x3, gait normal, no focal motor deficits and CN's II- XI intact bilaterally Psych Other: Cooperative Course Course Course Narrative: RME: 34-year-old female presents to ED for epigastric pain with dyspepsia, burping and acid sensation for the past couple of weeks. Patient states CCP did not help. Positive for epigastric tenderness on palpation. Labs EKG ultrasound ordered. Consultations Consultation #1: per Dr. Leon .... I spoke directly with Dr. Leon, he asked if I felt the patient could go home, I do feel like the patient could go home. She is well-appearing without in a concerning abdominal exam, her labs are stable as we have already discussed, I discussed with the patient she is on board with the plan. We will be providing her with the contact and she should be calling the office tomorrow, she should be on a clear liquid diet, easily digested food. Time: 22:18 Medications Administered Discontinued Medications Generic Name Dose Route Start Last Admin Trade Name Freq PRN Reason Stop Dose Admin Al Hydroxide/Mg Hydroxide 15 ml 03/10/25 21:54 03/10/25 22:14 Magnesium Hydrox/Alum Hydrox 30 Ml Oral.Susp PO 03/10/25 21:55 15 ml ONCE ONE Administration Sodium Chloride 1,000 mls @ 999 mls/hr 03/10/25 22:00 03/10/25 22:10 Ns IV 03/10/25 23:00 999 mls/hr .Q1H1M GHANSHYAM Administration Morphine Sulfate 4 mg 03/10/25 21:54 03/10/25 22:14 Morphine Sulfate 4 Mg/Ml Cartridge IVPUSH 03/10/25 21:55 4 mg ONCE ONE Administration Protocol Ondansetron HCl 4 mg 03/10/25 21:54 03/10/25 22:13 Ondansetron Hcl 4 Mg/2 Ml Vial IVPUSH 03/10/25 21:55 4 mg ONCE ONE Administration Medical Decision Making Medical Decision Making MDM Narrative: 34-year-old female with a history of asthma presents with upper abdominal discomfort for several weeks. Pain over upper abdomen nonradiating, unable to describe the nature of her discomfort. Associated postprandial pain, nausea, and the patient is noting excessive eructation with indigestion. Patient has had poor appetite. Denies diarrhea or fever. Problem: Obesity History: Per patient I have considered the following differential diagnoses: Biliary colic, cholecystitis, gastritis, GERD, pancreatitis, perforated peptic ulcer Plan: Given distribution of pain in nature of symptoms, I am most concerned for biliary pathology. Screening labs including LFTs lipase an ultrasound of the right upper quadrant were ordered from triage, the patient actually has a stone lodged in the gallbladder neck with some mild wall thickening. We will be reaching out to the surgical service. And giving fluid, Maalox, Zofran and morphine. Thought about perforated peptic ulcer, the patient has been having excessive eructation with dyspepsia, however there was no peritoneal signs on exam. I have independently reviewed the following tests: Labs: No leukocytosis, not anemic, no electrolyte abnormality, liver function tests are normal, lipase not elevated, not Ultrasound right upper quadrant: US/US abdomen limited IMPRESSION: 1. Solitary gallstone measuring 1.1 cm within the neck of the gallbladder. This does not move upon decubitus positioning. Mild wall thickening with ringdown artifact likely related to adenomyomatosis. Negative sonographic Donohue's sign. Nevertheless, cholecystitis is a consideration. 2. Remainder of the exam is normal. Lab Data 03/10/25 12:53 03/10/25 12:53 Labs: Lab Results 03/10/25 03/10/25 Range/Units 12:53 17:29 WBC 7.9 (4.8-10.8) X10*3/uL RBC 4.68 (4.20-5.50) X10*6/uL Hgb 13.5 (12.0-16.0) g/dl Hct 40.6 (37.0-47.0) % MCV 86.8 (80.0-98.0) fL MCH 28.8 (27.0-33.0) pg MCHC 33.3 (31.0-35.0) g/dl RDW 14.2 (11.0-16.0) % Plt Count 344 (160-400) X10*3/uL MPV 10.5 (9.4-12.3) fL Immature Gran % (Auto) 0.1 (0.0-0.4) % Neut % (Auto) 63.7 (45-73) % Lymph % (Auto) 28.0 (20-40) % [place] % (Auto) 5.8 (2-11) % Eos % (Auto) 2.0 (0-4) % Baso % (Auto) 0.4 (0-2) % Lymph # (Auto) 2.2 (1.2-4.9) X10*3/uL [place] # (Auto) 0.5 (0.1-1.2) X10*3/uL Eos # (Auto) 0.2 (0.0-0.4) X10*3/uL Baso # (Auto) 0.0 (0.0-0.2) X10*3/uL Abs Immat Gran (auto) 0.01 (0.00-0.03) X10*3/uL Absolute Neuts (auto) 5.0 (2.0-8.3) x10*3/uL Absolute Nucleated RBC 0.000 (0.0-0.012) X10*3/uL Nucleated RBC % (auto) 0.0 (0.0-0.2) /100WBC Sodium 137 (135-145) mmol/L Potassium 3.9 (3.3-5.1) mmol/L Chloride 106 (96-108) mmol/L Carbon Dioxide 23 (22-29) mmol/L Anion Gap 12 (12-20) BUN 7 L (9-16) mg/dL Creatinine 0.67 (0.5-1.4) mg/dL Estim Creat Clear Calc 115.3 Estimated GFR > 60 Random Glucose 76 (60-115) mg/dL Calcium 9.4 (8.4-10.2) mg/dL Total Bilirubin 0.7 (0.0-1.0) mg/dL AST 31 (5-31) U/L ALT 25 (0-31) U/L Alkaline Phosphatase 76 (39-117) U/L Troponin I High Sens < 2.7 (<3.5-17.0) ng/L Total Protein 7.9 (6.5-8.0) g/dL Albumin 4.7 (3.5-5.0) g/dL Lipase 30 (8-78) U/L Beta HCG, Quant < 2 mIU/mL Urine Color Yellow Urine Appearance Cloudy Urine pH 6.0 (5.0-9.0) Ur Specific [place] 1.020 (1.005-1.025) Urine Protein Negative (Neg-Trace) mg/dL Urine Glucose (UA) Negative (Negative) mg/dL Urine Ketones 40 (Negative) mg/dL Urine Blood Large (3+) H (Negative) Urine Nitrite Negative (Negative) Ur Leukocyte Esterase Trace H (Negative) Urine RBC 0-2 (0-2) /HPF Urine WBC 0-5 (0-5) /HPF Ur Squamous Epith Cells 6-10 (0-2) /HPF Urine Bacteria 1+ (None Seen) Hyaline Casts 3-5 (0-2) /LPF Influenza Type A (PCR) NEGATIVE (Negative) Influenza Type B (PCR) NEGATIVE (Negative) RSV RNA Qual (PCR) NEGATIVE (Negative) SARS-CoV-2 RNA (RT-PCR) NEGATIVE (Negative) Discharge Plan Discharge Clinical Impression: Cholelithiasis, Biliary colic Patient Disposition: Home, Self-Care Instructions: Biliary Colic (ED), Gallstones (ED), Low Fat Diet (ED) Additional Instructions: You should be consuming a clear liquid diet, you can even purchase protein water at the grocery store. If you consume any food make sure is no fat or low-fat. You want to eat easily digestible foods. Stay away from fatty/greasy food, spicy food, meet , cheese etc.. Call Dr. Leon tomorrow, the office we will schedule an appointment for you. Use the Zofran as needed for nausea, use the Carafate as needed for hiccups and indigestion. Prescriptions: New ondansetron HCl 4 mg tablet 4 mg PO Q8H PRN (Reason: nausea and vomiting) Qty: 10 0RF sucralfate [Carafate] 100 mg/mL suspension 10 ml PO QID PRN (Reason: dyspepsia) Qty: 300 0RF Rx Instructions: swish in mouth and swallow; use after food/drink No Action cetirizine 10 mg Tablet 10 mg PO DAILY ketotifen fumarate 0.025 % (0.035 %) Drops 1 drp OPHTHALMIC (EYE) BID PRN (Reason: Itching) montelukast 10 mg Tablet 10 mg PO BEDTIME fluticasone propionate 50 mcg/actuation [place],Suspension 2 spray INTRANASAL DAILY Rx Instructions: IN EACH NOSTRIL Breo Ellipta 200-25 mcg/dose Blister With Device 1 inh INHALATION DAILY Rx Instructions: RINSE MOUTH AFTER USING prednisone 20 mg tablet 40 mg PO DAILY Qty: 10 0RF albuterol sulfate 0.63 mg/3 mL Solution For Nebulization 0.63 mg INHALATION Q4-6H PRN (Reason: Wheezing) Qty: 1 0RF albuterol sulfate [ProAir HFA] 90 mcg/actuation Hfa Aerosol Inhaler 2 puff INHALATION Q4H PRN (Reason: Shortness Of Breath Or Wheezing) Qty: 1 0RF prednisone 20 mg tablet 40 mg PO DAILY 4 Days Qty: 8 0RF ibuprofen 600 mg tablet 600 mg PO Q6H PRN (Reason: fever or pain) Qty: 30 0RF ondansetron 4 mg tablet,disintegrating 4 mg PO Q6-8H PRN (Reason: nausea and vomiting) Qty: 14 0RF prednisone 20 mg tablet 40 mg PO DAILY 4 Days Qty: 8 0RF cefuroxime axetil 250 mg tablet 250 mg PO BID 7 Days Qty: 14 0RF albuterol sulfate 90 mcg/actuation HFA aerosol inhaler 2 puff inhalation Q4-6H PRN (Reason: shortness of breath or wheezing) Qty: 8.5 0RF prednisone 20 mg tablet 20 mg PO DAILY Qty: 7 0RF albuterol sulfate 2.5 mg /3 mL (0.083 %) solution for nebulization 2.5 mg inhalation Q4-6H PRN (Reason: bronchospasm) Qty: 90 0RF Vitamin Plus Low Iron 27 mg iron- 1 mg tablet 1 tab PO DAILY loratadine [Allergy Relief (loratadine)] 10 mg tablet 10 mg PO DAILY PRN (Reason: allergies) omeprazole 20 mg capsule,delayed release(DR/EC) 20 mg PO BID epinephrine 0.3 mg/0.3 mL auto-injector IM Referrals: Aditi Leon MD [Physician] - (biliary colic, seen in ED overnight 03/10, stone in GB neck) Stand Alone Forms: Work/School Release Print Language: Occitan
[2025-03-10 13:05] LABS: MANUAL DIFF FLAG NO
[2025-03-10 13:06] LABS: Basophils Percent Auto 0.4 % (0-2); Eosinophils Absolute Auto 0.2 X10*3/uL (0.0-0.4); Hematocrit 40.6 % (37.0-47.0); Hemoglobin 13.5 g/dl (12.0-16.0); Imm Gran Abs Auto 0.01 X10*3/uL (0.00-0.03); Imm Gran Pct Auto 0.1 % (0.0-0.4); Lymphocytes Absolute Auto 2.2 X10*3/uL (1.2-4.9); Mean Corpuscular HGB Conc 33.3 g/dl (31.0-35.0); Mean Corpuscular Hemoglobin 28.8 pg (27.0-33.0); Mean Corpuscular Volume 86.8 fL (80.0-98.0); Mean Platelet Volume 10.5 fL (9.4-12.3); Monocytes Absolute Auto 0.5 X10*3/uL (0.1-1.2); Monocytes Percent Auto 5.8 % (2-11); Neutrophils Percent Auto 63.7 % (45-73); Platelet Count 344 X10*3/uL (160-400); Red Blood Count 4.68 X10*6/uL (4.20-5.50); Red Cell Distribution Width 14.2 % (11.0-16.0); White Blood Count 7.9 X10*3/uL (4.8-10.8)
[2025-03-10 13:27] LABS: Alanine Aminotransferase 25 U/L (0-31); Albumin Level 4.7 g/dL (3.5-5.0); Alkaline Phosphatase 76 U/L (39-117); Anion Gap 12 (12-20); Aspartate Amino Transferase 31 U/L (5-31); Bilirubin Total 0.7 mg/dL (0.0-1.0); Blood Urea Nitrogen 7 mg/dL (9-16); Calcium 9.4 mg/dL (8.4-10.2); Carbon Dioxide 23 mmol/L (22-29); Chloride 106 mmol/L (96-108); Creatinine Clr Calc Pharmacy 115.3; Estimated Glomerular Filt Rate > 60; Glucose Random 76 mg/dL (60-115); Lipase 30 U/L (8-78); Potassium 3.9 mmol/L (3.3-5.1); Sodium 137 mmol/L (135-145); Total Protein 7.9 g/dL (6.5-8.0)
[2025-03-10 13:29] LABS: HCG Quantitative < 2 mIU/mL; Troponin-I High Sensitivity < 2.7 ng/L (<3.5-17.0)
[2025-03-10 13:43] LABS: Influenza A PCR NEGATIVE (Negative); Influenza B PCR NEGATIVE (Negative); Resp Syncy Virus RNA Qual PCR NEGATIVE (Negative); SARS COV2 PCR INHOUSE NEGATIVE (Negative)
[2025-03-10 17:57] LABS: Appearance Urine Cloudy; Color Urine Yellow; Glucose Urine UA Negative (Negative); Leukocyte Esterase Urine Trace (Negative); Nitrite Urine Negative (Negative); UMIC TRIGGER UACC YES; Urine Blood Large (3+) (Negative); Urine Ketones 40 mg/dL (Negative); Urine Protein Negative (Neg-Trace)
[2025-03-10 18:06] LABS: Bacteria Urine 1+ (None Seen); RBC Urine 0-2 /HPF (0-2); WBC Urine 0-5 /HPF (0-5)
--- OUTSIDE RECORDS SUMMARY | 2025-03-10 21:54 | XMS_ITS | Encounter Summary ---
Author Organization [employer] Address [address] [place] [address] Care Team Providers Care County Administrator Name Role Phone Nell Alarcon NP Primary Care Provider [phone] Reason for Visit * Reason Comments Med Refill Encounter Details Date Type Department Care Team (Late st Contact Info) Description 10/28/2024 Refill [facility] [address] [place], [place] [id number] Nell Alarcon NP [address] [place], [place] [phone] Class 1 obesity with body mass index (BMI) of 33.0 to 33.9 in adult, unspecified obesity type, unspecified whether serious comorbidity present Social History Tobacco Use Types Packs/Day Years Used Date Smoking Tobacco: Former Smokeless Tobacco: Never Alcohol Use Standard Drinks/Week Comments Never 0 (1 standard drink = 0.6 oz pur e alcohol) occasionally Alcohol Answer Date Recorded Frequency of Alcohol Consumption Not on file 04/02/2024 Average Number of Drinks Not on file 024 Frequency of Binge Drinking Not on file 11/2023 Score 0 04/02/2024 Depression Answer Date Recorded Patient Health Questionnaire-9 Score 0 01/18/2024 Patient Health Questionnaire-9 Score 0 01/18/2024 Last PHQ-9: Questionnaire Data Not on file 0 01/18/2024 Housing Stability Answer Date Recorded What is your housing situation today? I have mary person 01/09/[address] you li ve. Do you have problems with any of the following? None of the above 01/09/2024 Food Insecurity Answer Date Recorded Within the past 12 months, y ou worried that your food would run out before you got money to buy more: Never True 01/09/2024 Within the past 12 months,th e food you bought just didn't last and you didn't have enough money to get more: Never True 07/2024 Transportation Answer Date Recorded In the past 12 months, has l ack of transportation kept you from medical appts, meetings, work or from getting things needed for daily living? No 01/09/2024 Utilities Answer Date Recorded In the past 12 months, has t he electric, gas, oil or water company threatened to shut off services in your home? No 01/09/2024 Depression Answer Date Recorded Patient Health Questionnaire-2 Score 0 01/18/2024 Comments Unknown Sex and Gender Information Value Date Recorded Sex Assigned at Female 07/31/2022 10:21 AM EDT Legal Sex Female 10:21 AM EDT Gender Identity Female 07/31/2022 10:21 AM EDT Sexual Orientation Straight 07/31/2022 10 :21 AM EDT documented as of this encounter Plan of Treatment Upcoming Encounters Date Type Department Care Team (Late st Contact Info) Description 03/27/2025 9:45 AM EDT Office Visit [facility] [address] [place] [id number] Ney José MD [address] [place] [address] documented as of this encounter Visit Diagnoses Diagnosis Class 1 obesity with body mass index (BMI) of 33.0 to 33.9 in adult, unspecified obesity type, unspecified whether serious comorbidity present documented in this encounter Additional Health Concerns Assessment Noted Time PHQ-9 Depression Total Score: 0 01/18/20 24 9:08 AM EDT documented as of this encounter Care Teams County Administrator Relationship Specialty Start Date End Date Nell Alarcon NP [address] [place] [id number] PCP - General Family Medicine 01/18/24 documented as of this encounter
[2025-03-10] MEDS: 0.9 % Sodium Chloride 1,000 ML 999 ML IV (22:10)
[2025-03-10] MEDS: ondansetron HCL 4 MG/2 ML VIAL IVPUSH (22:13)
[2025-03-10 22:14] VITALS: RESP 16
[2025-03-10] MEDS: Magnesium Hydrox/Alum Hydrox 30 ML ORAL.SUSP 15 ML PO (22:14)
[2025-03-10] MEDS: Morphine Sulfate 4 MG/ML CARTRIDGE IVPUSH (22:14)
[2025-03-10 22:42] VITALS: BP 113/59; PULSE 72; RESP 16; TEMP 36.8; O2SAT 97
[2025-03-10 23:52] VITALS: BP 113/59; PULSE 72; RESP 16; TEMP 36.8; O2SAT 97
== END 2025-03-10 23:53 | disposition home or self-care (01) ==
PROVIDERS: Physician Assistant; Emergency Provider Emergency Medicine; PCP Nurse Practitioner Family
DX: K80.70 Calculus of gallbladder and bile duct without cholecystitis without obstruction (principal); I49.8 Other specified cardiac arrhythmias; R11.2 Nausea with vomiting, unspecified; R10.2 Pelvic and perineal pain; Z03.818 Encounter for observation for suspected exposure to other biological agents ruled out; Z79.899 Other long term (current) drug therapy
CPT/HCPCS: 0241U; 76705; 80053; 81001; 83690; 84484; 84702; 85025; 93005; 96361; 96374; 96375; 99284; J2270; J2405

== ENCOUNTER → 2025-03-10 12:16 | Outpatient (BNV) | payer MEDICAID, SELFPAY | PROVIDERS: Emergency Provider Emergency Medicine; PCP Nurse Practitioner Family; Visit Provider Internal Medicine Cardiovascular Disease | DX: R10.9 Unspecified abdominal pain (principal) | CPT/HCPCS: 93010 ==

== ENCOUNTER → 2025-03-10 13:44 | Outpatient (BNV) | payer MEDICAID, SELFPAY | PROVIDERS: PCP Nurse Practitioner Family; Visit Provider Radiology Diagnostic Radiology | DX: K80.20 Calculus of gallbladder without cholecystitis without obstruction (principal) | CPT/HCPCS: 76705 ==

== ENCOUNTER 2025-04-07 15:33 | Outpatient (REF) | payer MEDICAID, SELFPAY ==
--- OUTSIDE RECORDS SUMMARY | 2025-04-07 15:58 | XMS_ITS | Encounter Summary ---
Author Organization [employer] Address [address] [facility] [address] [place] [address] Care Team Providers Care Room Service Waiter Name Role Phone Nell Alarcon NP Primary Care Provider [phone] Encounter Details Date Type Department Care Team ([facility] st Contact Info) Description 04/07/2025 Orders Only [facility] [address] [place] [address] Nell Alarcon NP [address] [place] [address] Exposure to communicable disease (Primary Dx) Social History Tobacco Use Types Packs/Day Years [...] Answer Date Recorded Patient Health Questionnaire-9 Score 3 02/13/2025 Patient Health Questionnaire-9 Score 3 02/13/2025 Last PHQ-9: Questionnaire Data Not on file 0 02/13/2025 Housing Stability Answer Date Recorded What is your housing situation today? I have mray person 02/13/[address] you li ve. Do you have problems with any of the following? None of the above 02/13/2025 Food Insecurity Answer Date Recorded Within the past 12 months, y ou worried that your food would run out before you got money to buy more: Sometimes True 2024 Within the past 12 months,th e food you bought just didn't last and you didn't have enough money to get more: Sometimes True 02/13/2025 Transportation Answer Date Recorded In the past 12 months, has l ack of transportation kept you from medical appts, meetings, work or from getting things needed for daily living? No 02/13/2025 Utilities Answer Date Recorded In the past 12 months, has t he electric, gas, oil or water company threatened to shut off services in your home? No 02/13/2025 Depression Answer Date Recorded Patient Health Questionnaire-2 Score 0 02/13/2025 Internet Access Answer Date Recorded Internet Access Q1 Yes 02/13/2025 Internet Access Q2 Not on file 02/13/2025 Comments Unknown Sex and Gender Information Value Date Recorded Sex Assigned at Female 07/31/2022 10:21 AM EDT Legal Sex Female 10:21 AM EDT Gender Identity Female 07/31/2022 10:21 AM EDT Sexual Orientation Straight 07/31/2022 10 :21 AM EDT documented as of this encounter Plan of Treatment Upcoming Encounters Date Type Department Care Team (Late st Contact Info) Description 04/17/2025 11:15 AM EDT Office Visit [facility] [address] [place] [id number] Nell Alarcon NP [address] [place] [address] Scheduled Orders Name Type Priority Associated Diagnoses Orde r Schedule Measles, Mumps, and Rubella (MMR) Antibodies (IgG) Panel, Immune Status Lab Routine Exposure to communicable disease Expected: 04/07/2025 (Approximate), Expires: 04/07/2026 documented as of this encounter Visit Diagnoses Diagnosis Exposure to communicable disease- Primary Contact with or exposure to unspecified communicable disease documented in this encounter Additional Health Concerns Assessment Noted Time PHQ-9 Depression Total Score: 3 02/14/20 25 10:54 AM EDT documented as of this encounter Care Teams Room Service Waiter Relationship Specialty Start Date End Date Nell Alarcon NP [address] [place] [address] PCP - General Family Medicine 01/18/24 documented as of this encounter
--- OUTSIDE RECORDS SUMMARY | 2025-04-07 15:58 | XMS_ITS | Clinical Summary ---
Author Organization [facility] ity Address [address] [place] [address] Care Team Providers Care Angle Shear Operator Name Role Phone DonaldJacquie amaro Michael LEVY Primary Care Provider [phone] Surgical History Surgery Date Site/Laterality Comments SECTION PROCEDURE: SECTION Medical History Medical History Date Comments Anemia DX:Anemia Asthma DX:Asthma Social History Tobacco Use Types Packs/Day Years Used Date Smoking Tobacco: Former Smokeless Tobacco: Never Alcohol Use Standard Drinks/Week Comments Not Currently 0 (1 standard drink = 0.6 oz pur e alcohol) Comments Unknown Sex and Gender Information Value Date Recorded Sex Assigned at Not on file Legal Sex Female 11:37 PM EST Gender Identity Not on file Sexual Orientation Not on file Obstetrics History Last Filed Vital Signs Vital Sign Reading Time Taken Comments Blood Pressure 107/74 02/16/2023 8:33 AM EDT Sitting Left arm Pulse 84 02/16/2023 8:33 AM EDT Temperature - - Respiratory Rate - - Oxygen Saturation - - Inhaled Oxygen Concentration - - Weight 87.5 kg (192 lb 12.8 oz) 02/16/2023 8:33 AM EDT Height 162.6 cm (5' 4 ) 02/16/2023 8:33 AM EDT Body Mass Index 33.09 02/16/2023 8:33 AM EDT Plan of Treatment Health Maintenance Due Date Last Done Comments DTaP,Tdap,and Td Vaccines (1 - Tdap) 12/13/2007 Hepatitis B Vaccines (1 of 3 - 19+ 3-dose series) 12/13/2007 Cervical Cancer Screening: P ap Smear 2009 Depression Screening 09/03/2022 HIV Screening 09/03/2022 Hepatitis C Screening 09/03/2022 Social Influencers of Health Screening 09/03/2022 COVID-19 Vaccine (1 - 2023-2 5 season) 2024 Influenza Vaccine (#1) 2025 HIB Vaccines Aged Out No longer eligi ble based on patient's age to complete this topic HPV Vaccines Aged Out No longer eligi ble based on patient's age to complete this topic Hepatitis A Vaccines Aged Out No long er eligible based on patient's age to complete this topic IPV Vaccines Aged Out No longer eligi ble based on patient's age to complete this topic MMR Vaccines Aged Out No longer eligi ble based on patient's age to complete this topic Meningococcal ACWY Vaccine Aged Out N o longer eligible based on patient's age to complete this topic Meningococcal B Vaccine Aged Out No l onger eligible based on patient's age to complete this topic Pneumococcal Vaccine: Pediat rics (0 to 5 Years) and At-Risk Patients (6 to 49 Years) Aged Out No longer eligible b ased on patient's age to complete this topic RSV Immunization Patients Un tanmay 20 months Aged Out No longer eligible b ased on patient's age to complete this topic Varicella Vaccines Aged Out No longer eligible based on patient's age to complete this topic Care Teams Angle Shear Operator Relationship Specialty Start Date End Date Jacquie Castle DO [address] [place] [address] PCP - General 02/16/23
--- OUTSIDE RECORDS SUMMARY | 2025-04-07 15:58 | XMS_ITS | Clinical Summary ---
Author Organization [employer] [facility] Address [address] [place] [address] Care Team Providers Care Architecture Department Chair Name Role Phone Jacquie Castle Primary Care Provider Allergies No known active allergies Medications Medication Sig Dispensed Refills Start Date End Date Status montelukast (SINGULAIR) 10 MG tablet Take 1 tablet (10 mg total) by mouth every night at bedtime. 0 Active albuterol 108 (90 Base) MCG/ACT inhaler Inhale 2 puffs into the lungs every 6 (six) hours as needed for wheezing. 0 Active loratadine (CLARITIN) 10 MG tablet Take 1 tablet (10 mg total) by mouth daily. 0 Active famotidine (PEPCID) 20 MG tablet Take 1 tablet (20 mg total) by mouth 2 (two) times a day. 0 Active Fluticasone-Salmeterol (ADVAIR DISKUS IN) Inhale into the lungs. 0 Active MV-Min-Fe Fum-FA-DHA ( 1 PO) Take by mouth daily. 0 Active Active Problems No known active problems Social History Tobacco Use Types Packs/Day Years Used Date Smoking Tobacco: Former Cigarettes Smokeless Tobacco: Never Tobacco Cessation:Counseling Given: Not Answered Alcohol Use Standard Drinks/Week Comments Not Currently 0 (1 standard drink = 0.6 oz pur e alcohol) Sex and Gender Information Value Date Recorded Sex Assigned at Female 02/02/2023 11:09 AM EDT Gender Identity Not on file Sexual Orientation Not on file Job Start Date Occupation Industry Not on file Not on file Not on file Last Filed Vital Signs Vital Sign Reading Time Taken Comments Blood Pressure 107/74 02/16/2023 8:33 AM EDT Pulse 84 02/16/2023 8:33 AM EDT Temperature 36.5 C (97.7 F) 02/16/2023 8:33 AM EDT Respiratory Rate - - Oxygen Saturation 96% 02/16/2023 8:33 AM EDT Inhaled Oxygen Concentration - - Weight 87.5 kg (192 lb 12.8 oz) 02/16/2023 8:33 AM EDT Height 162.6 cm (5' 4 ) 02/16/2023 8:33 AM EDT Body Mass Index 33.09 02/16/2023 8:33 AM EDT Plan of Treatment Health Maintenance Due Date Last Done Comments Hepatitis B Vaccines (1 of 3 - 3-dose series) 1988 Hepatitis C Screening 1988 COVID-19 Vaccine (#1) 06/14/1989 Depression Screening 2000 Preventative Health Evaluation 2006 Cervical Cancer Screening (Pap Smear) 2009 Influenza Vaccine (#1) 2025 9, 06/25/2018, 09/03/2015, Additional history exists DTap / Tdap / Td (3 - Td or Tdap) 09/25/2027 09/25/2017, 06/22/2014 Pneumococcal Vaccine Aged Out 08/25/2016, 08/29/20 10 No longer eligible based on patient's age to complete this topic RSV Ped < 20 months Aged Out No longe r eligible based on patient's age to complete this topic Care Teams Architecture Department Chair Relationship Specialty Start Date End Date Jacquie Castle DO [address] [place] [id number] PCP - General Family Medicine 02/16/23
[2025-04-08 09:24] LABS: Rubeola IgG (Measles) >300.00 AU/mL
== END 2025-04-07 15:34 | disposition home or self-care (01) ==
LOC: HO.HHCL 15:33
PROVIDERS: PCP Nurse Practitioner Family; Visit Provider Nurse Practitioner Family
DX: Z20.9 Contact with and (suspected) exposure to unspecified communicable disease (principal)
CPT/HCPCS: 36415; 86735; 86762; 86765

== ENCOUNTER 2025-06-15 14:41 | Outpatient (AMB) | payer MEDICAID, SELFPAY ==
--- NOTE | 2025-06-15 14:42 | MHC.OFFVIS ---
Vital Signs 06/15/25 14:53 Height 5 ft 4 in Weight 172 lb BMI 29.5 BP 110/72 Blood Pressure Location Lt brachial Position Sitting Intake Visit Reasons: Gallstones Intake Note: Patient is seen in office for ER follow up visit, following for gallstones. Pt c/o: prior to ER visit, had symptoms daily for a month, went to ED and since has increase, yesterday pain was the worse- chest pain, chills, lasted for couple hrs, denies n/v/d/c ER/US:03/10/25 Balance Bridge Assembler Required: No Accompanied by: Self / Same As Patient Allergies SEASONAL ALLERGIES Allergy (Intermediate, Uncoded 06/15/25 14:49) RUNNY NOSE Medication List - Last Reconciled 06/15/25 by Jose R Pendleton MD albuterol sulfate 90 mcg/actuation 2 puffs inhalation Q4-6H PRN albuterol sulfate 2.5 mg (3 mL) inhalation Q4-6H PRN cetirizine 10 mg PO DAILY epinephrine IM fluticasone propionate 50 mcg/actuation 2 sprays intranasal DAILY ibuprofen 600 mg PO Q6H PRN loratadine (Allergy Relief (loratadine)) 10 mg PO DAILY PRN sucralfate (Carafate) 10 mL PO QID PRN HPI Comments Details: 34-year-old female patient presenting with complaints of abdominal pain mainly in the epigastrium with radiation into the right upper quadrant and into the chest. She has had several severe episodes, 1 of which necessitated a visit to the emergency department for further evaluation. In the emergency department she was noted to have tenderness in the epigastrium and right upper quadrant. Workup with ultrasound of the abdomen revealed a large gallstone at the neck of the gallbladder with evidence of wall thickening. Since her discharge from the emergency department she continues to have episodes of epigastric abdominal pain including this morning. She denies nausea or vomiting but does report excessive burping. She denies diarrhea or constipation. [facility] Medical History section wound complication Asthma Surgical History Hx of section Family History Other Asthma Social History Household Members: Family Housing: Apartment Do you presently have visiting nurse or other home services: No Alcohol intake: never Substance Use Type: Marijuana service: No Current occupational status: unemployed Female Reproductive History Menstrual Age of Menarche: 8 Review of Systems Const All systems reviewed & are unremarkable except as noted in HPI and below Physical Exam Const General: cooperative and no acute distress Nutritional Appearance: well nourished Orientation/consciousness: patient oriented x3 Limitations: no limitations HEENT Head: Yes normocephalic and Yes atraumatic Ears: hearing grossly normal bilaterally Resp Effort & Inspection: normal respiratory effort, no audible wheezes, no cough and no respiratory distress Cardio Jugular venous distension: no JVD GI Inspection: Yes normal to inspection Palpation (GI): Soft to palpation, Tenderness to palpation present (GI) in the RUQ and Donohue's sign positive, no guarding, not rigid and No hepatosplenomegaly present Percussion: Yes normal to percussion Auscultation: normal bowel sounds Rectal Exam - Female: deferred Skin Other: Warm, dry, no rash Neuro General: patient oriented x3 Extrem General: Yes no clubbing, cyanosis or edema Assessment & Plan Assessment & Plan (1) Cholecystitis, acute with cholelithiasis: Code(s): K80.00 - Calculus of gallbladder with acute cholecystitis without obstruction Category: Medical Qualifiers: Biliary obstruction: without biliary obstruction Qualified Code(s): K80.00 - Calculus of gallbladder with acute cholecystitis without obstruction Plan 34-year-old female patient presenting with complaints of abdominal pain in the epigastrium and right upper quadrant found on workup to have a large gallstone in the neck of the gallbladder. Her exam and history are suggestive of acute cholecystitis due to cholelithiasis. I recommended a laparoscopic or possible open cholecystectomy and after discussion of the procedure, risks, and alternatives, she consents to the surgery. Coding Level of Care Code New Pt Level 4 (03419) Diagnoses Calculus of gallbladder with acute cholecystitis without obstruction K80.00 Biliary obstruction: without biliary obstruction
[2025-06-15 14:53] VITALS: BP 110/72; BMI 29.5
--- OUTSIDE RECORDS SUMMARY | 2025-06-15 20:08 | XMS_ITS | Encounter Summary ---
Author Organization [employer] Address [address] [address] Care Team Providers Care Runstitching Machine Operator Name Role Phone Jacquie Castle DO Primary Care Provider + [phone] Jacquie Castle DO Primary Care Provider [phone] Nell Alarcon NP Primary Care Provider [phone] Encounter Details Date Type Department Care Team (Late st Contact Info) Description 12/06/2022 Orders Only [facility] MED & PEDS [address] [place] [address] Jacquie Deras LPN Social History Tobacco Use Types Packs/Day Years Used Date Smoking Tobacco: Never Assessed Comments Unknown Sex and Gender Information Value Date Recorded Sex Assigned at Female 07/31/2022 10:21 AM EDT Legal Sex Female 10:21 AM EDT Gender Identity Female 07/31/2022 10:21 AM EDT Sexual Orientation Straight 07/31/2022 10 :21 AM EDT documented as of this encounter Plan of Treatment Not on file documented as of this encounter Visit Diagnoses Not on filedocumented in this encounter Care Teams Runstitching Machine Operator Relationship Specialty Start Date End Date Jacquie Castle DO [address] [place] [address] PCP - General Family Medicine 10/01/18 08/02/23 Jacquie Castle DO [address], [place] [phone] PCP - General Family Medicine 11/08/23 01/17/24 Nell Alarcon NP [address] [place] [id number] PCP - General Family Medicine 01/18/24 documented as of this encounter
--- OUTSIDE RECORDS SUMMARY | 2025-06-15 20:08 | XMS_ITS | Encounter Summary ---
Author Organization [employer] Address [address] [place] [address] Care Team Providers Care Retirement Administrator Name Role Phone Nell Alarcon NP Primary Care Provider [phone] Reason for Visit * Reason Onset Date Comments Med Refill 03/30/2025 Encounter Details Date Type Department Care Team ([facility] st Contact Info) Description 03/30/2025 Refill [facility] MEDICINE [address], [place] [phone] Nell Alarcon NP [address] [place] [address] Social History Tobacco Use Types Packs/Day Years [...] housing situation today? I have mary person 02/13/[address] you [...] AM EDT documented as of this encounter Miscellaneous Notes * Telephone Encounter - Nell Alarcon NP - 03/30/2025 1:02 PM EDT Pt would need visit for higher dose * Telephone Encounter - Jacquie Deras LPN - 03/30/2025 11:54 AM EDT Next dose pended please review. Last seen 03/17/25. * Telephone Encounter - Marly Koehler - 03/30/2025 11:51 AM EDT TC from pt requesting medication refill. Medications needing refill : Tirzepatide-Weight Management 10 MG/0.5ML solution auto-injector To be sent to: [facility] documented in this encounter Plan of Treatment Not on file documented as of this encounter Visit Diagnoses Not on filedocumented in this encounter Additional Health Concerns Assessment Noted Time PHQ-9 Depression Total Score: 3 02/14/20 25 10:54 AM EDT documented as of this encounter Care Teams Retirement Administrator Relationship Specialty Start Date End Date Nell Alarcon NP [address] [place] [address] PCP - General Family Medicine 01/18/24 documented as of this encounter
--- OUTSIDE RECORDS SUMMARY | 2025-06-15 20:08 | XMS_ITS | Encounter Summary ---
Author Organization [employer] Address [address] [facility] [address] [place] [address] Care Team Providers Care Mobile Phone Salesperson Name Role Phone RudyNell hendrix LEONOR Primary Care Provider [phone] Reason for Visit * Reason Comments Med Refill Encounter Details Date Type Department Care Team (Late st Contact Info) Description 06/17/2024 Refill [facility] MED & PEDS [address] [place] [address] Jacquie Castle DO [address] [place] [address] Social History Tobacco Use Types Packs/Day Years [...] documented as of this encounter Care Teams Mobile Phone Salesperson Relationship Specialty Start Date End Date Nell Alarcon NP [address] [place] [id number] PCP - General Family Medicine 01/18/24 documented as of this encounter
--- OUTSIDE RECORDS SUMMARY | 2025-06-15 20:08 | XMS_ITS | Clinical Summary ---
Author Organization [employer] Address [address] [place] [address] 7 [place] [address] Care Team Providers Care Aircraft Systems Repairer Name Role Phone DorianNell LEONOR Primary Care Provider [phone] Allergies No known active allergies Medications * This document contains information received from the source organization and may not represent a complete record from that organization. EPINEPHrine (Epipen) 0.3 MG/0.3ML injection syringe BRING ON DE IMUNOTERAPIA 3 Active omeprazole (PriLOSEC) [address] capsuleIndicati ons:Gastroesoph ageal reflux disease, unspecified whether esophagitis present Take 1 capsule (20 mg) by mouth before breakfast and before evening meal. Do not crush or chew. 180 capsule 3 4 07/04/20 25 Active olopatadine (Pataday) 0.2 % ophthalmic solution Administer 1 drop into affected eye(s) Once per day. 2.5 mL 2 4 Active Advair HFA 115-21 MCG/ACT inhaler Inhale 1 puff Once per day. 4 Active albuterol (Ventolin HFA) 108 (90 Base) MCG/ACT inhaler INHALE 2 PUFFS BY MOUTH EVERY 4 TO 6 HOURS NEEDED FOR WHEEZING OR SHORTNESS OF BREATH 18 g 1 4 Active fexofenadine (Georgina) 180 MG tabletIndicatio ns:Seasonal allergic rhinitis due to other allergic trigger Take 1 tablet (180 mg) by mouth if needed each day (Allergies). 90 tablet 1 5 08/12/20 25 Active fluticasone (Flonase) 50 MCG/ACT nasal sprayIndication s:Allergy, initial encounter INSTILL 1 SPRAY IN EACH NOSTRIL ONCE DAILY SHAKE GENTLY 48 g 5 Active Active Problems Problem Noted Date Diagnosed Date Calculus of bile duct withou t cholecystitis and without obstruction 04/17/2025 Overview (04/17/2025): - Impression - 1. Solitary gallstone measuring 1.1 cm within the neck of the gallbladder. This does not move upon decubitus positioning. Mild wall thickening with ringdown artifact likely related to adenomyomatosis. Negative sonographic Donohue's sign. Nevertheless, cholecystitis is a consideration. Electronically signed by: Reece Madsen MD 03/10/2025 04:29 PM EDT RP Dictated By: Reece Madsen MD Signed By: <Electronically signed by Reece Madsen MD in OV> 03/10/25 1629 Assessment & Plan (04/17/2025 12:07 PM EDT): Reviewed nutrition recs S/s to report Hydrate call into surgical team office, they willl call pt with scheduling availability after discussing with RN Strep pharyngitis 03/17/2025 Cholecystitis 03/17/2025 Assessment & Plan (03/17/2025 2:07 PM EDT): I advised to follow-up with surgery but if before that she experiences acute pain I advised for her to go immediately to the emergency room for earlier intervention Seborrheic dermatitis 10/10/2024 Assessment & Plan (10/25/2024 11:17 AM EST): Trial ketoconazole shampoo Class 1 obesity with body ma ss index (BMI) of 33.0 to 33.9 in adult 08/19/2024 Assessment & Plan (04/17/2025 12:10 PM EDT): Wt Readings from Last 3 Encounters: 04/17/25 168 lb 3.2 oz (76.3 kg) 03/17/25 163 lb (73.9 kg) 02/13/25 173 lb 9.6 oz (78.7 kg) Has not had zepbound, given colicky pain, pt willl continue to hold until able to determine treatment plan with surgery , including resumption of glp-1 pt verbalized understanding Assessment & Plan (02/13/2025 3:01 PM EDT): -documented 20 lbs weight loss since medication initiation in Aug 2024; starting weight 193 lbs -Trizepatide injection dose increased -encouraged to continue diet and exercise -follow-up w/ PCP as needed Assessment & Plan (08/19/2024 6:32 PM EST): Pt reports having trouble losing weight, no contraindications to wegovy, Healthy nutrition and activity reviewed Visual disturbance 08/19/2024 Assessment & Plan (08/19/2024 6:33 PM EST): Has visit Sunday with eye team Dietary counseling 08/19/2024 Assessment & Plan (04/17/2025 12:07 PM EDT): Dietary Recommendations: Fruits, vegetables, whole grains, protein foods, and fat-free or low-fat dairy products are healthy choices. Eat different types of protein foods in your diet. This can include seafood, lean meats, poultry, beans, peas, lentils, nuts, seeds, soy products, and eggs. Limit foods and beverages higher in added sugars, saturated fat, and sodium. Exercise Recommendations: At least 150 minutes of moderate-intensity physical activity per week, or an equivalent combination of moderate- and vigorous-intensity activity Assessment & Plan (08/19/2024 6:33 PM EST): Encouraged minimizing processed foods and increasing whole foods particularly vegetables Exercise counseling 08/19/2024 Assessment & Plan (08/19/2024 6:35 PM EST): Encouraged daily movement, working up to 30 minutes daily Encounter for surveillance o f implantable subdermal contraceptive 04/08/2024 Assessment & Plan (04/08/2024 5:25 PM EDT): Offered removal today, pt opts to rtc for removal and initiation of ocps. Neck pain 04/02/2024 Assessment & Plan (04/08/2024 5:23 PM EDT): Suspect mks pain post with lifting, reviewed stretches and posture. Referral to PT Left corneal abrasion 03/13/2024 Assessment & Plan (03/13/2024 12:23 PM EDT): -avoid further irritation -advised not to touch -will refer to [facility] eye care -will prescribe eye drop Skin irritation 03/13/2024 Assessment & Plan (03/14/2024 6:47 AM EDT): -left ear lobe, likely due to earring -apply abx ointment -follow-up with PCP as scheduled Allergies 01/18/2024 Assessment & Plan (08/19/2024 6:32 PM EST): Drops prescribed Assessment & Plan (01/18/2024 12:41 PM EDT): Daily symptoms with sig nasal congestion and rhinorrhea, Resume claratin, add flonase, Rtc in 4 weeks Fatigue 01/18/2024 Assessment & Plan (01/18/2024 12:42 PM EDT): Likely secondary to baby sleep pattern, labs as ordered below, Rtc in 4 weeks Depression 01/18/2024 Assessment & Plan (01/18/2024 12:43 PM EDT): Situational with son mh struggles, referral to and counseling, denies SI. HI Routine screening for STI (sexually transmitted infection) 01/18/2024 Assessment & Plan (01/18/2024 12:42 PM EDT): Asymptomatic requesting screening Dizziness 05/09/2023 Assessment & Plan (05/09/2023 4:44 PM EDT): Reason for dizziness and headache could be due to possible dehydration/fluid behind I advise to drink more liquids and water and to change position slowly It could be that this is also causing tachycardia but in light that also SOB happens and that she is I refer her to ED to r/o PE I presented the case to Dr Madrigal at [facility] and I ask nurse to do a check up Other headache syndrome 05/09/2023 Palpitations 05/09/2023 Abdominal pain, lower 05/09/2023 Assessment & Plan (05/09/2023 4:49 PM EDT): S/p c section one month ago Scar looks good there is some tenderness on physical exam further evaluation to be done at the emergency room Recurrent major depression 07/27/2015 Mild persistent asthma 07/27/2015 Low back pain 07/27/2015 Allergic rhinitis 07/27/2015 Assessment & Plan (02/13/2025 3:08 PM EDT): -advised trial flonase 1 spray in each nostril two times daily -changed loratidine to fexofenadine -follow-up with PCP with persistent symptoms -encouraged to wear mask while outside and minimize allergen exposure Assessment & Plan (10/25/2024 11:16 AM EST): Persistent symptoms despite compliance with otc medications No change to environment Referral to allergy Resolved Problems Problem Noted Date Diagnosed Date Resolved Date Tobacco dependence syndrome 07/27/2015 01/18/2024 Encounters Date Type Department Care Team Description 04/17/2025 11:15 AM EDT Office Visit [facility] [address] [place] [phone] Nell Alarcon NP Calculus of bile duct without cholecystitis and without obstruction (Primary Dx); Dietary counseling; Class 1 obesity due to excess calories with body mass index (BMI) of 33.0 to 33.9 in adult, unspecified whether serious comorbidity present 04/17/2025 Travel 04/16/2025 Telephone [facility] [address] [place], [place] [phone] Lizbeth Coleman MA Chart Prep 04/13/2025 Results Follow-Up [facility] [address] [place] [address] Tracey Riley RN Measles, Mumps, and Rubella (MMR) Antibodies (IgG) Panel, Immune Status 04/07/2025 Orders Only [facility] [address] [place] [phone] Nell Alarcon NP Exposure to communicable disease (Primary Dx) 04/06/2025 Refill [facility] [address] [place] [address] Nell Alarcon NP Class 1 obesity due to excess calories without serious comorbidity with body mass index (BMI) of 33.0 to 33.9 in adult 03/30/2025 Refill [facility] [address] [place] [address] Nell Alarcon NP 03/17/2025 1:00 PM EDT Office Visit [facility] [address] [place] [phone] Zo Gonzales MD Cholecystitis (Primary Dx); Strep pharyngitis from Last 3 Months Immunizations Immunization Administration Dates Next Due HPV, Quadrivalent 06/22/2014,03/25/2013,02/15/20 13 Influenza injectable quadriv alent IIV4 with preservative 06/25/2018 Influenza injectable quadriv alent preservative free 08/05/2019,09/03/2015 Influenza, IIV3, injectable 06/22/2014, 0 Influenza, Split (incl. smiley fied surface antigen) 08/08/2013 Influenza, seasonal, injecta ble, preservative free 08/25/2016 Pneumococcal Polysaccharide PPSV23 08/25/2016, Tdap 09/25/2017,06/22/2014 Social History Tobacco Use Types Packs/Day Years Used Date Smoking Tobacco: Former Smokeless Tobacco: Never Tobacco Cessation:Counseling Given: Not Answered Alcohol Use Standard Drinks/Week Comments Never 0 [...] Orientation Straight 07/31/2022 10 :21 AM EDT Last Filed Vital Signs Vital Sign Reading Time Taken Comments Blood Pressure 120/78 04/17/2025 11:27 AM EDT Pulse 89 04/17/2025 11:27 AM EDT Temperature 36.6 C (97.9 F) 04/17/2025 11:27 AM EDT Respiratory Rate 14 04/17/2025 11:27 AM EDT Oxygen Saturation 99% 04/17/2025 11:27 AM EDT Inhaled Oxygen Concentration - - Weight 76.3 kg (168 lb 3.2 oz) 04/17/2025 11:27 AM EDT Height 162.6 cm (5' 4 ) 04/17/2025 11:27 AM EDT Body Mass Index 28.87 04/17/2025 11:27 AM EDT Plan of Treatment Health Maintenance Due Date Last Done Comments Lipid Panel 1988 Family Planning (PISQ) 12/13/2003 Hepatitis B Vaccines (1 of 3 - 19+ 3-dose series) 12/13/2007 Pneumococcal Vaccine: Pediatrics (0 to 5 Years) and At-Risk Patients (6 to 49) Years (2 of 2 - PCV) 08/25/2017 08/25/2016, 08/29/2010 Cervical Cancer Screening 10/30/2023 HPV/Cotest 10/30/2023 Pap Smear 10/30/2023 10/30/2022 COVID-19 Vaccine ( season) 2025 01/20/2022, 06/15/2021, 03/23/2021 Influenza Vaccine (#1) 2025 9, 06/25/2018, 08/25/2016, Additional history exists Depression Screening 02/13/2026 02/13/2025, 02/14/20 25 Disability Screening 02/13/2026 02/13/2025 SDOH Screening 02/13/2026 02/13/2025 Alcohol/Substance Use Screening 04/17/2026 04/17/2025 Tobacco Screening 04/17/2026 04/17/2025 DTaP/Tdap/Td Vaccines (3 - Td or Tdap) 09/25/2027 09/25/2017, 06/22/2014 Zoster Vaccines (1 of 2) 2038 RSV Patients and Patients Aged 60 years or older (1 - 1-dose 75+ series) 12/13/2063 HPV Vaccines Completed 06/22/2014, 03/02, 02/14/2013 HIV Screening Completed 04/02/2024, 08/19/2020 Hepatitis C Screening Completed 04/02/2024, 020 HIB Vaccines Aged Out No longer eligi [...] patient's age to complete this topic Meningococcal Vaccine Aged Out No nata kerri eligible based on patient's age to complete this topic RSV under 20 months Aged Out No longe r eligible based on patient's age to complete this topic Rotavirus Vaccines Aged Out No longer eligible based on patient's age to complete this topic Procedures Procedure Name Priority Date/Time Associated Diagnosis Comments MEASLES, MUMPS, AND RUBELLA (MMR) AB (IGG) PANEL, IMMUNE STATUS Routine 04/07/2025 3:36 PM EDT Exposure to communicable disease POCT INFLUENZA B (ID NOW RAPID MOLECULAR) Routine 03/17/2025 1:17 PM EDT Strep pharyngitis POCT INFLUENZA A (ID NOW RAPID MOLECULAR) Routine 03/17/2025 1:17 PM EDT Strep pharyngitis POCT RAPID STREP A Routine 03/17/2025 1: 17 PM EDT Strep pharyngitis POCT RAPID COVID ANTIGEN Routine 03/17/2025 1:17 PM EDT Strep pharyngitis HEPATITIS C ANTIBODY Routine 04/02/2024 12:51 PM EDT Routine screening for STI (sexually transmitted infection) HIV 1/2 ANTIGEN/ANTIBODY, FOURTH GENERATION W/RFL Routine 04/02/2024 12:51 PM EDT Routine screening for STI (sexually transmitted infection) PAP SMEAR Routine 10/30/2022 12:00 AM EST from Last 3 Months or Most Recently Relevant to Health Maintenance Results * Measles, Mumps, and Rubella (MMR) Antibodies??(IgG) Panel, Immune Status (04/07/2025 3:36 PM EDT) Mumps Virus IgG Antibody 210.00 AU/mL [facility] Comment:AU/mL Interpretation ------- <9.00 Not consistent with immunity9.00-10.99 Equivocal>10.99 Consistent with immunityThe presence of mumps IgG antibody suggests immunizationor past or current infection with mumps virus. Rubella IgG Antibody 2.23 Index [facility] Comment:Index Interpretation ----- <0.90 Not consistent with immunity 0.90-0.99 Equivocal > or = 1.00 Consistent with immunityThe presence of rubella IgG antibody suggestsimmunization or past or current infection withrubella virus.THIS TEST WAS PERFORMED AT:[facility] [place] [id number] WARE MD Rubeola IgG (Measles) >300.00 AU/mL [facility] Comment:AU/mL Interpretatio n----- <13.50 Not consistent with wwrqrjyy18.50-16.49 Equivocal>16.49 Consistent with immunityThe presence of measles IgG suggests immunization orpast or current infection with measles virus.For additional information, please refer [email or web address](This link is being provided for informational/educational purposes only.) Blood Venous blood specimen / Unknown 04/07/2025 3:36 PM EDT 04/07/2025 5:13 PM EDT us Nell Alarcon NP LAB BLOOD ORDERABLES Final Resul t Performing Organization Address City/[facility]/ZIP Co de Phone Number [facility] [address] [place] [phone] * Influenza B (ID NOW Rapid Molecular) (03/17/2025 1:17 PM EDT) Influenza B Negative Negative, Indeterminate [facility] Swab 03/17/2025 1:17 PM EDT us Zo Montilla MD POINT OF CARE TEST EN TER/EDIT ORDERABLES Final Result Performing Organization Address [facility]/ZIP Co de Phone Number [facility] [address] [place] [phone] * Influenza A (ID NOW Rapid Molecular) (03/17/2025 1:17 PM EDT) [facility] Influenza A Negative Negative, Indeterminate [facility] Swab 03/17/2025 1:17 PM EDT Zo Montilla MD POINT OF CARE TEST EN TER/EDIT ORDERABLES Final Result Performing Organization Address [facility]/ZIP Co de Phone Number [facility] [address] [place] [address] [phone] * POCT Rapid COVID Ag (03/17/2025 1:17 PM EDT) [facility] Rapid COVID Ag Negative [facility] Swab 03/17/2025 1:17 PM EDT Zo Montilla MD POINT OF CARE TEST EN TER/EDIT ORDERABLES Final Result Performing Organization Address [facility] [[email or web address]] Co de Phone Number [facility] [address] [place] [phone] * (ABNORMAL) POCT rapid strep A manually resulted (03/17/2025 1:17 PM EDT) [facility] Rapid Strep A Screen Positive( A) Negative, None Detected [facility] Swab 03/17/2025 1:17 PM EDT Zo Montilla MD POINT OF CARE TEST EN TER/EDIT ORDERABLES Final Result Performing Organization Address [facility] [[email or web address]] Co de Phone Number [facility] [address] [place] [address] [phone] * Hepatitis C Ab (04/02/2024 12:51 PM EDT) [facility] Hepatitis C Antibody Nonreactive Nonreactive [facility] Comment:Antibodies to HCV no t detected; does not exclude early acuteHCV infection. Blood Venous blood specimen / Unknown 04/02/2024 12:51 PM EDT 04/02/2024 3:59 PM EDT Nell Alarcon NP LAB BLOOD ORDERABLES Final Resul t Performing Organization Address [facility]/ZIP Co de Phone Number [facility] [address] [place] [phone] * HIV-1/2 Antigen and Antibodies, Fourth Generation, with Reflexes (04/02/2024 12:51 PM EDT) [facility] HIV AB/AG Nonreactive Nonreactive [facility] Comment:HIV-1 p24 Ag and/or HIV-1/HIV-2 Ab not detected.A test result that is nonreactive does not exclude thepossibility of exposure to or infection with HIV-1 and/orHIV-2. Nonreactive results in this assay for individualswith prior exposure to HIV-1 and/or HIV-2 may be due toantigen and antibody levels that are below the limit ofdetection of this assay.The [employer] HIV Ag/Ab Combo assay result andsupplemental assay results should be interpreted inconjunction with the patient's clinical presentation,history and other laboratory results. If the results areinconsistent with clinical evidence, additional testing issuggested to confirm the result. Blood Venous blood specimen / Unknown 04/02/2024 12:51 PM EDT 04/02/2024 3:59 PM EDT us Nell Alarcon NP LAB BLOOD ORDERABLES Final Resul t Performing Organization Address [facility]/ZIP Co de Phone Number [facility] [address] [place] [phone] [phone] * Pap Smear (10/30/2022 12:00 AM EST) Swab Historical Provider MD LAB CYTOLOGY ORDERABLES F inal Result Performing Organization Address City/[facility]/ZIP Co de Phone Number EXTERNAL LAB from Last 3 Months or Most Recently Relevant to Health Maintenance Insurance [address] [address] [address] C3 Care Teams Aircraft Systems Repairer Relationship Specialty Start Date End Date Nell Alarcon NP [address] [place] [phone] PCP - General Family Medicine 01/18/24
--- OUTSIDE RECORDS SUMMARY | 2025-06-15 20:08 | XMS_ITS | Encounter Summary ---
Author Organization [employer] Address [address] [place] [address] Care Team Providers Care Storeperson Name Role Phone Nell Alarcon NP Primary Care Provider [phone] Reason for Visit * Reason Comments Med Refill Encounter Details Date Type Department Care Team (Late st Contact Info) Description 10/28/2024 Refill [facility] [address] [place], [place] [phone] Nell Alarcon NP [address] [place], [place] [phone] Class 1 obesity with body mass index [...] documented as of this encounter Care Teams Storeperson Relationship Specialty Start Date End Date Nell Alarcon NP [address] [place] [phone] PCP - General Family Medicine 01/18/24 documented as of this encounter
--- OUTSIDE RECORDS SUMMARY | 2025-06-15 20:08 | XMS_ITS | Clinical Summary ---
Author Organization [facility] Address [address] [place] [address] Care Team Providers Care Front End Mechanic Name Role Phone Jacquie Castle Primary Care [...] age to complete this topic Care Teams Front End Mechanic Relationship Specialty Start Date End Date Jacquie Castle DO [address] [place] [phone] PCP - General Family Medicine 02/16/23
--- OUTSIDE RECORDS SUMMARY | 2025-06-15 20:08 | XMS_ITS | Clinical Summary ---
Author Organization [facility] Address [address] [place] [address] Care Team Providers Care Exhibition Designer Name Role Phone Donaldsondra Jacquie Michael LEVY Primary Care Provider [phone] Surgical History Surgery Date Site/Laterality Comments SECTION [...] and At-Risk Patients (6 to 49 Years) (2 of 2 - PCV) 08/25/2017 08/25/2016, 08/29/2010 Cholesterol Screening (Lipid Panel) 09/03/2022 Hepatitis C Screening 09/03/2022 Social Influencers of Health Screening 09/03/2022 Depression Screening 10/01/2024 COVID-19 Vaccine ( season) 2025 Influenza Vaccine (#1) 2025 9, 06/25/2018, 08/25/2016, Additional history exists Cervical Cancer Screening: Pap Smear 10/30/2025 10/30/2022 DTaP,Tdap,and Td Vaccines (3 - Td or Tdap) 09/25/2027 09/25/2017, 06/22/2014 HPV Vaccines Completed 06/22/2014, 03/02, 02/14/2013 HIV Screening Completed 04/02/2024 HIB Vaccines Aged Out No longer eligi [...] to complete this topic RSV Immunization Patients Under 20 months Aged Out No longer eligible based on patient's age to complete this topic Varicella Vaccines Aged Out No longer eligible based on patient's age to complete this topic Care Teams Exhibition Designer Relationship Specialty Start Date End Date Jacquie Castle DO [address] [place] [address] PCP - General 02/16/23
--- OUTSIDE RECORDS SUMMARY | 2025-06-15 20:08 | XMS_ITS | Encounter Summary ---
Author Organization [employer] Address [address] [facility] [address] [place] [address] Care Team Providers Care It Consultant Name Role Phone Jacquie Castle DO Primary Care Provider [phone] Jacquie Castle DO Primary Care Provider [phone] Nell Alarcon NP Primary Care Provider [phone] Encounter Details Date Type Department Care Team (Late st Contact Info) Description 06/19/2023 Orders Only [facility] [address] [place] [address] Pippa Mercer, CNM [address] [place] [address] Social History Tobacco Use Types Packs/Day Years Used Date Smoking Tobacco: Former Smokeless Tobacco: Never Alcohol Use Standard Drinks/Week Comments Not Currently 0 (1 standard drink = 0.6 oz pur e alcohol) Comments No Sex and Gender Information Value Date Recorded Sex Assigned at Female 07/31/2022 10:21 AM EDT Legal Sex Female 10:21 AM EDT Gender Identity Female 07/31/2022 10:21 AM EDT Sexual Orientation Straight 07/31/2022 10 :21 AM EDT documented as of this encounter Plan of Treatment Not on file documented as of this encounter Procedures Procedure Name Priority Date/Time Associated Diagnosis Comments PAP SMEAR Routine 10/30/2022 12:00 AM EST documented in this encounter Results * Pap Smear (10/30/2022 12:00 AM EST) Swab us Historical Provider MD LAB CYTOLOGY ORDERABLES F inal Result EXTERNAL LAB documented in this encounter Visit Diagnoses Not on filedocumented in this encounter Care Teams It Consultant Relationship Specialty Start Date End Date Jacquie Castle DO [address] [place] [address] PCP - General Family Medicine 10/01/18 08/02/23 Jacquie Castle DO [address] [place] [address] PCP - General Family Medicine 11/08/23 01/17/24 Nell Alarcon NP [address] [place] [address] PCP - General Family Medicine 01/18/24 documented as of this encounter
--- OUTSIDE RECORDS SUMMARY | 2025-06-15 20:08 | XMS_ITS | Encounter Summary ---
Author Organization [employer] Address 75 [facility] 7t [place] [address] Care Team Providers Care Polish Compounder Name Role Phone Jacquie Castle DO Primary Care Provider + [phone] Jacquie Castle DO Primary Care Provider [phone] Nell Alarcon NP Primary Care Provider [phone] Encounter Details Date Type Department Care Team ([facility] st Contact Info) Description 01/30/2023 Orders Only [facility] CHC MED & PEDS [address] [place], [place] [phone] Jacquie Deras LPN Social History Tobacco Use Types Packs/Day Years Used Date Smoking Tobacco: Former Cigarettes Smokeless Tobacco: Never Comments Unknown Sex and Gender Information Value Date Recorded Sex Assigned at Female 07/31/2022 10:21 AM EDT Legal Sex Female 10:21 AM EDT Gender Identity Female 07/31/2022 10:21 AM EDT Sexual Orientation Straight 07/31/2022 10 :21 AM EDT COVID-19 Exposure Response Date Recorded In the last 10 days, have yo u been in contact with someone who was confirmed or suspected to have Coronavirus/COVID-19? No / Unsure 01/22/2023 2:23 PM EDT documented as of this encounter Plan of Treatment Not on file documented as of this encounter Visit Diagnoses Not on filedocumented in this encounter Care Teams Polish Compounder Relationship Specialty Start Date End Date Jacquie Castle DO [address] [place] [address] [phone] PCP - General Family Medicine 10/01/18 08/02/23 Jacquie Castle DO [address] [place] [address] PCP - General Family Medicine 11/08/23 01/17/24 Nell Alarcon NP 230 [place] [address] PCP - General Family Medicine 01/18/24 documented as of this encounter
--- OUTSIDE RECORDS SUMMARY | 2025-06-15 20:08 | XMS_ITS | Encounter Summary ---
Author Organization [employer] Address [address] [address] Care Team Providers Care Library Specialist Name Role Phone Jacquie Castle DO Primary Care Provider + [phone] Jacquie Castle DO Primary Care Provider + [phone] Nell Alarcon NP Primary Care Provider [phone] Encounter Details Date Type Department Care Team (Late st Contact Info) Description 10/26/[address] [facility] CHC MED & PEDS [address] [place] [address] Jacquie Deras LPN Social History Tobacco Use [...] on filedocumented in this encounter Care Teams Library Specialist Relationship Specialty Start Date End Date Jacquie Castle DO [address] [place] [address] PCP - General Family Medicine 10/01/18 08/02/23 Jacquie Castle DO [address] [place], [place] [phone] PCP - General Family Medicine 11/08/23 01/17/24 Nell Alarcon NP [address] [place] [address] PCP - General Family Medicine 01/18/24 documented as of this encounter
== END 2025-06-15 15:07 | disposition home or self-care (01) ==
LOC: HO.HGS 14:41
PROVIDERS: PCP Nurse Practitioner Family; Referring Provider Nurse Practitioner Family; Visit Provider Surgery
DX: K80.00 Calculus of gallbladder with acute cholecystitis without obstruction (principal)
CPT/HCPCS: 99204

== ENCOUNTER → 2025-06-15 14:41 | Outpatient (BNVA) | payer MEDICAID, SELFPAY | PROVIDERS: PCP Nurse Practitioner Family; Referring Provider Nurse Practitioner Family; Visit Provider Surgery | DX: K80.00 Calculus of gallbladder with acute cholecystitis without obstruction (principal) | CPT/HCPCS: 99202 ==

== ENCOUNTER 2025-06-18 08:01 | Day surgery (SDC) | payer MEDICAID, SELFPAY ==
--- OUTSIDE RECORDS SUMMARY | 2025-06-16 11:38 | XMS_ITS | Encounter Summary ---
Author Organization [employer] Address [address] [place] [address] Care Team Providers Care Biochemical Engineer Name Role Phone Nell Alarcon NP Primary Care Provider [phone] Reason for Visit * Reason Comments Med Refill Encounter Details Date Type Department Care Team (Late st Contact Info) Description 10/28/2024 Refill [facility] [address] [place], [place] [phone] Nell Alarcon NP [address] [place], [place] [phone] Class 1 obesity with body mass index [...] documented as of this encounter Care Teams Biochemical Engineer Relationship Specialty Start Date End Date Nell Alarcon NP [address] [place] [address] PCP - General Family Medicine 01/18/24 documented as of this encounter
--- OUTSIDE RECORDS SUMMARY | 2025-06-16 11:39 | XMS_ITS | Clinical Summary ---
Author Organization [employer] Address [address] [place] [address] 7 [place] [address] Care Team Providers Care Sewing Supervisor Name Role Phone DorianNell LEONOR Primary Care Provider [phone] Allergies No known active allergies Medications * [...] -advised not to touch -will refer to [facility] eye care -will prescribe eye drop [...] presented the case to Dr Madrigal at [facility] and I ask nurse to do a [...] 04/17/2025 11:15 AM EDT Office Visit [facility] [address] [place] [address] Nell Alarcon NP Calculus of bile duct without cholecystitis and without obstruction (Primary Dx); Dietary counseling; Class 1 obesity due to excess calories with body mass index (BMI) of 33.0 to 33.9 in adult, unspecified whether serious comorbidity present 04/17/2025 Travel 04/16/2025 Telephone [facility] [address] [place], [place] [phone] Lizbeth Coleman MA Chart Prep 04/13/2025 Results Follow-Up [facility] [address] [place] [address] Tracey Riley RN Measles, Mumps, and Rubella (MMR) Antibodies (IgG) Panel, Immune Status 04/07/2025 Orders Only [facility] [address] [place] [address] Nell Alarcon NP Exposure to communicable disease (Primary Dx) 04/06/2025 Refill [facility] CHC MED & PEDS [address] [place] [address] Nell Alarcon NP Class 1 obesity due to excess calories without serious comorbidity with body mass index (BMI) of 33.0 to 33.9 in adult 03/30/2025 Refill [facility] [address] [place] [address] Nell Alarcon NP 03/17/2025 1:00 PM EDT Office Visit [facility] [address] [place] [address] Zo Gonzales MD Cholecystitis (Primary Dx); Strep [...] EDT) Mumps Virus IgG Antibody 210.00 AU/mL [facility] Comment:AU/mL Interpretation ------- <9.00 Not consistent with immunity9.00-10.99 Equivocal>10.99 Consistent with immunityThe presence of mumps IgG antibody suggests immunizationor past or current infection with mumps virus. Rubella IgG Antibody 2.23 Index [facility] Comment:Index Interpretation ----- <0.90 Not consistent with immunity 0.90-0.99 Equivocal > or = 1.00 Consistent with immunityThe presence of rubella IgG antibody suggestsimmunization or past or current infection withrubella virus.THIS TEST WAS PERFORMED AT:[facility] [place] [phone] WARE MD Rubeola IgG (Measles) >300.00 AU/mL [facility] Comment:AU/mL Interpretatio n----- <13.50 Not consistent with afkxdmzr27.50-16.49 Equivocal>16.49 Consistent with immunityThe presence of measles IgG suggests immunization orpast or current infection with measles virus.For additional information, please refer [email or web address](This link is being provided for informational/educational purposes only.) Blood Venous blood specimen / Unknown 04/07/2025 3:36 PM EDT 04/07/2025 5:13 PM EDT us Nell Alarcon NP LAB BLOOD ORDERABLES Final Resul t Performing Organization Address City/[facility]/ZIP Co de Phone Number [facility] [address] [place] [phone] * Influenza B (ID NOW Rapid Molecular) (03/17/2025 1:17 PM EDT) Influenza B Negative Negative, Indeterminate [facility] Swab 03/17/2025 1:17 PM EDT us Zo Montilla MD POINT OF CARE TEST EN TER/EDIT ORDERABLES Final Result Performing Organization Address [facility]/ZIP Co de Phone Number [facility] [address] [place] [phone] * Influenza A (ID NOW Rapid Molecular) (03/17/2025 1:17 PM EDT) [facility] Influenza A Negative Negative, Indeterminate [facility] Swab 03/17/2025 1:17 PM EDT Zo Montilla MD POINT OF CARE TEST EN TER/EDIT ORDERABLES Final Result Performing Organization Address [facility]/ZIP Co de Phone Number [facility] [address] [place] [phone] * POCT Rapid COVID Ag (03/17/2025 1:17 PM EDT) [facility] Rapid COVID Ag Negative [facility] Swab 03/17/2025 1:17 PM EDT Zo Montilla MD POINT OF CARE TEST EN TER/EDIT ORDERABLES Final Result Performing Organization Address [facility] Co de Phone Number [facility] [address] [place] [phone] * (ABNORMAL) POCT rapid strep A manually resulted (03/17/2025 1:17 PM EDT) [facility] Rapid Strep A Screen Positive( A) Negative, None Detected [facility] Swab 03/17/2025 1:17 PM EDT Zo Montilla MD POINT OF CARE TEST EN TER/EDIT ORDERABLES Final Result Performing Organization Address [facility] Co de Phone Number [facility] [address] [place] [phone] * Hepatitis C Ab (04/02/2024 12:51 PM EDT) [facility] Hepatitis C Antibody Nonreactive Nonreactive [facility] Comment:Antibodies to HCV no t detected; does not exclude early acuteHCV infection. Blood Venous blood specimen / Unknown 04/02/2024 12:51 PM EDT 04/02/2024 3:59 PM EDT Nell Alarcon NP LAB BLOOD ORDERABLES Final Resul t Performing Organization Address [facility]/ZIP Co de Phone Number [facility] [address] [place] [phone] [phone] * HIV-1/2 Antigen and Antibodies, Fourth Generation, with Reflexes (04/02/2024 12:51 PM EDT) [facility] HIV AB/AG Nonreactive Nonreactive [facility] Comment:HIV-1 p24 Ag and/or HIV-1/HIV-2 Ab not detected.A test result that is nonreactive does not exclude thepossibility of exposure to or infection with HIV-1 and/orHIV-2. Nonreactive results in this assay for individualswith prior exposure to HIV-1 and/or HIV-2 may be due toantigen and antibody levels that are below the limit ofdetection of this assay.The [employer] HIV Ag/Ab Combo assay result andsupplemental assay results should be interpreted inconjunction with the patient's clinical presentation,history and other laboratory results. If the results areinconsistent with clinical evidence, additional testing issuggested to confirm the result. Blood Venous blood specimen / Unknown 04/02/2024 12:51 PM EDT 04/02/2024 3:59 PM EDT us Nell Alarcon NP LAB BLOOD ORDERABLES Final Resul t Performing Organization Address [facility]/ZIP Co de Phone Number [facility] [address] [place] [phone] [phone] * Pap Smear (10/30/2022 12:00 AM EST) Swab Historical Provider MD LAB CYTOLOGY ORDERABLES F inal Result Performing Organization Address City/[facility]/ZIP Co de Phone Number EXTERNAL LAB from Last 3 Months or Most Recently Relevant to Health Maintenance [place] [address] [place] [address] C3 Care Teams Sewing Supervisor Relationship Specialty Start Date End Date Nell Alarcon NP [address] [place] [address] PCP - General Family Medicine 01/18/24
--- OUTSIDE RECORDS SUMMARY | 2025-06-16 11:39 | XMS_ITS | Encounter Summary ---
Author Organization [employer] Address 75 [facility] 7 [place] [address] Care Team Providers Care Clinical Quality Manager Name Role Phone RudyNell hendrix LEONOR Primary Care Provider [phone] Reason for Visit * Reason Comments Med Refill Encounter Details Date Type Department Care Team (Late st Contact Info) Description 06/17/2024 Refill [facility] CHC MED & PEDS [address] [place] [address] Jacquie Castle DO [address] [place] [address] Social History Tobacco Use Types Packs/Day Years [...] documented as of this encounter Care Teams Clinical Quality Manager Relationship Specialty Start Date End Date Nell Alarcon NP [address] [place] [address] PCP - General Family Medicine 01/18/24 documented as of this encounter
--- OUTSIDE RECORDS SUMMARY | 2025-06-16 11:39 | XMS_ITS | Encounter Summary ---
Author Organization [employer] Address [address] [address] Care Team Providers Care Television News Video Editor Name Role Phone Jacquie Castle DO Primary Care Provider + [phone] Jacquie Castle DO Primary Care Provider + [phone] Nell Alarcon NP Primary Care Provider [phone] Encounter Details Date Type Department Care Team (Late st Contact Info) Description 12/06/2022 Orders Only [facility] CHC MED & PEDS [address] [place] [address] Jacquie Deras LPN Social History Tobacco Use [...] on filedocumented in this encounter Care Teams Television News Video Editor Relationship Specialty Start Date End Date Jacquie Castle DO [address] [place] [address] PCP - General Family Medicine 10/01/18 08/02/23 Jacquie Castle DO [address] [place], [place] [phone] PCP - General Family Medicine 11/08/23 01/17/24 Nell Alarcon NP [address] [place] [address] PCP - General Family Medicine 01/18/24 documented as of this encounter
--- OUTSIDE RECORDS SUMMARY | 2025-06-16 11:39 | XMS_ITS | Clinical Summary ---
Author Organization [facility] Address [address] [place] [address] Care Team Providers Care Health Companion Name Role Phone Donaldsondra Jacquie Michael LEVY Primary Care Provider [phone] Surgical History Surgery Date Site/Laterality Comments SECTION [...] age to complete this topic Care Teams Health Companion Relationship Specialty Start Date End Date Jacquie Castle DO [address] [place] [address] PCP - General 02/16/23
--- OUTSIDE RECORDS SUMMARY | 2025-06-16 11:39 | XMS_ITS | Encounter Summary ---
Author Organization [employer] Address [address] [address] Care Team Providers Care Quality Associate Name Role Phone Jacquie Castle DO Primary Care Provider + [phone] Jacquie Castle DO Primary Care Provider + [phone] Nell Alarcon NP Primary Care Provider [phone] Encounter Details Date Type Department Care Team (Late st Contact Info) Description 10/26/2022 Orders Only [facility] CHC MED & PEDS [address] [place] [address] Jacquie Deras LPN Social History Tobacco Use [...] on filedocumented in this encounter Care Teams Quality Associate Relationship Specialty Start Date End Date Jacquie Castle DO [address] [place] [address] PCP - General Family Medicine 10/01/18 08/02/23 Jacquie Castle DO [address] [place], [place] [phone] PCP - General Family Medicine 11/08/23 01/17/24 Nell Alarcon NP [address] [place] [address] PCP - General Family Medicine 01/18/24 documented as of this encounter
--- OUTSIDE RECORDS SUMMARY | 2025-06-16 11:39 | XMS_ITS | Encounter Summary ---
Author Organization [employer] Address [address] [place] [address] Care Team Providers Care Conveyor Monitor Name Role Phone Nell Alarcon NP Primary Care Provider Reason for Visit * Reason Onset Date Comments Med Refill 03/30/2025 Encounter Details Date Type Department Care Team ([facility] st Contact Info) Description 03/30/2025 Refill [facility] [address] [place], [place] [phone] Nell Alarcon NP [address] [place] [address] Social History Tobacco Use Types Packs/Day Years [...] MG/0.5ML solution auto-injector To be sent to: [facility] documented in this encounter Plan of Treatment Not on file documented as of this encounter Visit Diagnoses Not on filedocumented in this encounter Additional Health Concerns Assessment Noted Time PHQ-9 Depression Total Score: 3 02/14/20 25 10:54 AM EDT documented as of this encounter Care Teams Conveyor Monitor Relationship Specialty Start Date End Date Nell Alarcon NP [address] [place] [address] PCP - General Family Medicine 01/18/24 documented as of this encounter
--- OUTSIDE RECORDS SUMMARY | 2025-06-16 11:39 | XMS_ITS | Encounter Summary ---
Author Organization [employer] Address 75 [facility] 7 [place] [address] Care Team Providers Care Maintenance Supervisor 2Nd Shift Name Role Phone Jacquie Castle DO Primary Care Provider + [phone] Jacquie Castle DO Primary Care Provider + [phone] Nell Alarcon NP Primary Care Provider [phone] Encounter Details Date Type Department Care Team (Late st Contact Info) Description 06/19/2023 Orders Only [facility] CHC MED & PEDS [address] [place] [address] Pippa Mercer, CNM [address] [place] [address] Social History Tobacco Use Types Packs/Day Years [...] on filedocumented in this encounter Care Teams Maintenance Supervisor 2Nd Shift Relationship Specialty Start Date End Date Jacquie Castle DO [address] [place] [address] PCP - General Family Medicine 10/01/18 08/02/23 Jacquie Castle DO [address] [place] [address] PCP - General Family Medicine 11/08/23 01/17/24 Nell Alarcon NP [address] [place] [address] PCP - General Family Medicine 01/18/24 documented as of this encounter
--- OUTSIDE RECORDS SUMMARY | 2025-06-16 11:39 | XMS_ITS | Encounter Summary ---
Author Organization [employer] Address 75 [facility] 7t [place] [address] Care Team Providers Care Direct Marketing Executive Name Role Phone Jacquie Castle DO Primary Care Provider + [phone] Jacquie Castle DO Primary Care Provider [phone] Nell Alarcon NP Primary Care Provider [phone] Encounter Details Date Type Department Care Team ([facility] st Contact Info) Description 01/30/2023 Orders Only [facility] CHC MED & PEDS [address] [place], [place] [phone] Jacquie Deras LPN Social History Tobacco Use [...] on filedocumented in this encounter Care Teams Direct Marketing Executive Relationship Specialty Start Date End Date Jacquie Castel DO [address] [place] [phone] PCP - General Family Medicine 10/01/18 08/02/23 Jacquie Castle DO 230 [place] [address] PCP - General Family Medicine 11/08/23 01/17/24 Nell Alarcon NP [address] [place] [address] PCP - General Family Medicine 01/18/24 documented as of this encounter
[2025-06-18] VITALS (11 sets, daily range): BP systolic 98–120; BP diastolic 43–77; PULSE 67–100; RESP 14–20; TEMP 36.4–36.8; O2SAT 96–100; BMI 29.4
[2025-06-18 08:33] LABS: UPreg QC Valid YES
[2025-06-18] MEDS: Lactated Ringers 1,000 ML 100 ML IVCONT (08:36)
--- NOTE | 2025-06-18 08:53 | MHC.SHP ---
Pre-Procedural Eval Section A - 24 Hr Update-Section A only Date of Service: 06/18/25 The patient is an INPATIENT: No Changes since office visit: Yes Patient answered all questions; No Cold of Flu in the past 2 weeks, No New Medical Problems and No Changes in Medication The patient has been examined within 24 hours of the surgical procedure. The History & Physical has been completed within 30 days and I have reviewed it.: Yes Section B - Complete if H&P > 30 days Chief Complaint: Calculus of gallbladder with acute cholecystitis Allergies: Allergies Allergy/AdvReac Type Severity Reaction Status Date / Time SEASONAL ALLERGIES Allergy Intermediate RUNNY NOSE Uncoded 06/15/25 14:49 Plan Diagnosis/Plan: Unchanged I have reviewed the history and physical and performed a pertinent physical examination on my patient. No changes have occurred unless specified. Time Spent With Patient Time: Total time managing care of this patient today ____ minutes.
--- NOTE | 2025-06-18 09:06 | HO.ANESPROP2 ---
Documented by User: Magaly Crockett NP 06/16/25 14:06 HPI - Anesthesia Eval Consult details Narrative: 34yo F for Cholecystectomy Laparoscopic,possible open PMFSH Active Problems Active Problems: All Active Problems Cholecystitis, acute with cholelithiasis (Acute) Previous section complicating , antepartum condition or complication (Acute) Positive urine test (Acute) Close exposure to COVID-19 virus (Acute) Lab test negative for COVID-19 virus (Acute) Asthma with status asthmaticus (Acute) Past Medical History Medical History (Updated 06/18/25 @ 08:11 by Paty Torres RN) Asthma exacerbation section wound complication Asthma Family History Family History Other Asthma Surgical History Surgical History (Updated 06/18/25 @ 08:10 by Paty Torres RN) Hx of section Social History Social History Household Members: Family Housing: Apartment Do you presently have visiting nurse or other home services: No Alcohol intake: never Patient Tobacco Use Status: Former Tobacco user Use of substances other than those prescribed or required for medical reasons: No Substance Use Type: Marijuana Are you DNR?: No Advance Directives: No Advance Directives Information Provided: Yes : No Poor oral hygiene: No service: No Current occupational status: unemployed Meds Allergies Allergy/AdvReac Type Severity Reaction Status Date / Time SEASONAL ALLERGIES Allergy Intermediate RUNNY NOSE Uncoded 06/15/25 14:49 Home Medications ?Medication ?Instructions ?Recorded ?Confirmed ?Last Taken ?Type cetirizine 10 mg tablet 10 mg PO DAILY 09/23/20 06/15/25 Unknown History fluticasone propionate 50 2 spray intranasal DAILY 09/23/20 06/15/25 Unknown History mcg/actuation nasal spray,suspension epinephrine 0.3 mg/0.3 mL IM 09/05/22 06/15/25 Unknown History injection, auto-injector loratadine 10 mg tablet (Allergy 10 mg PO DAILY PRN allergies 09/05/22 06/15/25 Unknown History Relief (loratadine)) Exam Pertinent Lab Results Pertinent Lab Results: Laboratory Tests 03/10/25 12:53 WBC 7.9 Hgb 13.5 Hct 40.6 Plt Count 344 Sodium 137 Potassium 3.9 Chloride 106 Carbon Dioxide 23 BUN 7 L Creatinine 0.67 Narrative Narrative: EKG 03/2025 Vent. Rate : 78 BPM Atrial Rate : 78 BPM P-R Int : 102 ms QRS Dur : 84 ms QT Int : 382 ms P-R-T Axes : 4 10 21 degrees QTcB Int : 435 ms Sinus rhythm with sinus arrhythmia with short ND Otherwise normal ECG When compared with ECG of 17-Nov-2023 14:17, ND interval has decreased Assessment and Plan Assessment Anesthesia Assessment: Chart Reviewed Documented by User: Yumiko Hirsch, DO 06/18/25 09:09 [facility] Past Medical History Medical History (Updated 06/18/25 @ 08:11 by Paty Torres RN) Asthma exacerbation section wound complication Asthma Family History Family History Other Asthma Family history of problems with anesthesia: No Surgical History Surgical History (Updated 06/18/25 @ 08:10 by Paty Torres RN) Hx of section History of Problems with Anesthesia: No Social History Social History Household Members: Family Housing: Apartment Do you presently have visiting nurse or other home services: No Alcohol intake: never Patient Tobacco Use Status: Former Tobacco user Use of substances other than those prescribed or required for medical reasons: No Substance Use Type: Marijuana Are you DNR?: No Advance Directives: No Advance Directives Information Provided: Yes : No Poor oral hygiene: No service: No Current occupational status: unemployed Meds Allergies Allergy/AdvReac Type Severity Reaction Status Date / Time SEASONAL ALLERGIES Allergy Intermediate RUNNY NOSE Uncoded 06/15/25 14:49 Home Medications ?Medication ?Instructions ?Recorded ?Confirmed ?Last Taken ?Type cetirizine 10 mg tablet 10 mg PO DAILY 09/23/20 06/15/25 Unknown History fluticasone propionate 50 2 spray intranasal DAILY 09/23/20 06/15/25 Unknown History mcg/actuation nasal spray,suspension epinephrine 0.3 mg/0.3 mL IM 09/05/22 06/15/25 Unknown History injection, auto-injector loratadine 10 mg tablet (Allergy 10 mg PO DAILY PRN allergies 09/05/22 06/15/25 Unknown History Relief (loratadine)) Exam Exam Date and Time: 06/18/25904 Height,Weight and Vital Signs: Height 5 ft 4 in Weight 77.7 kg Vital Signs Temperature 97.6 F 06/18/25 08:27 Pulse Rate 80 06/18/25 08:27 Respiratory Rate 16 06/18/25 08:27 Blood Pressure 98/43 L 06/18/25 08:27 Pulse Oximetry 97 06/18/25 08:27 Oxygen Delivery Method Room Air 06/18/25 08:27 Temperature 97.6 F 06/18/25 08:27 Pulse Rate 80 06/18/25 08:27 Respiratory Rate 16 06/18/25 08:27 Blood Pressure 98/43 L 06/18/25 08:27 Pulse Oximetry 97 06/18/25 08:27 Oxygen Delivery Method Room Air 06/18/25 08:27 Airway Mallampati Class: I TM Dist: >3cm Neck ROM: Full Loose/Missing/Broken Teeth: Yes (several missing teeth left upper jaw) Heart: S1S2 Lungs: CTAB Assessment and Plan Assessment Anesthesia Assessment: Anesthesia Plan Discussed and Chart Reviewed Final Anesthetic Review Family History of Problems with Anesthesia: No History of Problems with Anesthesia: No NPO: Yes ASA Class: II Final Preanesthetic Review: No Changes in Pt Med Stat, Meds/Allgs Chart Reviewed, Consent Obtained/Reviewed and Anes Risks/Benef Reviewed Patient Risk: Low Procedure Risk: Low Anesthetic Plan Anesthetic Plan: GA and Agree w/ Assess. and Plan Disposition: Standard PACU
--- NOTE | 2025-06-18 10:34 | P.OP_ITS ---
Operative Note Operative Note Date of Service: 06/18/25 Narrative: Preoperative diagnosis: , cholelithiasis Postoperative diagnosis: Same Procedure: Laparoscopic cholecystectomy Surgeon: Jose R Pendleton MD Grain Handler: Ivan Fernandez PA-C, RICH Christian Anesthesia: General endotracheal Indications for procedure: 34-year-old female patient presenting with complaints of abdominal pain in the epigastrium and right upper quadrant with nausea and vomiting. Workup revealed gallstones within the gallbladder. She presents today for laparoscopic cholecystectomy. Operative findings: Normal appearing gallbladder with no evidence of inflammation or edema. Gallstones within the gallbladder. Specimen: gallbladder Estimated blood loss: Less than 2 mL Complications: None Procedure details: Patient was brought to the OR and placed in a supine position. After administering general anesthesia the patient's abdomen was prepped with ChloraPrep and draped in a sterile fashion. A surgical time-out was called the consent confirmed. Patient received preoperative antibiotics and Venodyne boots were in place. Local anesthesia consisting of 0.5% Sensorcaine without epinephrine was infiltrated in a periumbilical region. A 5 mm incision was made above the umbilicus in a transverse fashion. The Veress needle was then inserted while elevating abdominal cavity with towel clips. After positive drop test the abdomen was insufflated to a pressure of 15 mm of mercury. The Veress needle was then removed and a 5 mm trocar inserted. The camera was inserted in the abdomen explored. A 12 mm trocar was then placed in the epigastrium. Two 5 mm trocars placed in the right upper quadrant by the salon shampoo assistant. The patient was placed in reverse Trendelenburg positioning and rotated to the left. The gallbladder was grasped with the fundus and retracted cephalad by the salon shampoo assistant. The infundibulum was then grasped and retracted away from the liver bed, also by the salon shampoo assistant. The Dolphin dissected was then used by the surgeon to dissect the peritoneum off the infundibulum to reveal the junction with the cystic duct. Cystic artery was noted slightly medial and posterior to the cystic duct. After obtaining a critical view the cystic duct was doubly clipped and divided. The cystic artery was then doubly clipped and divided. The gallbladder was then dissected off the liver bed using electrocautery with an L hook. Hemostasis was assured all times using the electrocautery. When the gallbladder is completely dissected off the liver bed was placed in an Endo-Catch bag and brought out through the epigastric incision. The gallbladder was sent to pathology for further examination. The abdomen was then re-examined. The liver bed was irrigated and suctioned dry. No bleeding or bile leak could be identified. CO2 was then evacuated and all trocars removed. Fascia was closed at the epigastric incision using a [id number] 0 Polysorb suture. Skin was closed in all incisions using a subcuticular 4 0 Polysorb suture by both the surgeon and salon shampoo assistant. Sterile dressings consisting of Steri-Strips, 2 x 2 gauze, and Tegaderm were then applied. The patient tolerated the procedure well. Sponge instrument and needle counts reported as correct. The patient was transferred to PACU in stable condition.
== END 2025-06-18 12:35 | disposition home or self-care (01) ==
PROVIDERS: Nurse Practitioner; PCP Nurse Practitioner Family; Visit Provider Surgery
PROC: 0FT44ZZ Resection of Gallbladder, Percutaneous Endoscopic Approach (ICD-10-PCS; CPT 47562; principal; 2025-06-18 09:30)
DX: K80.10 Calculus of gallbladder with chronic cholecystitis without obstruction (principal); J45.909 Unspecified asthma, uncomplicated; Z79.51 Long term (current) use of inhaled steroids; Z79.899 Other long term (current) drug therapy; Z79.1 Long term (current) use of non-steroidal anti-inflammatories (NSAID); R13.10 Dysphagia, unspecified; F12.90 Cannabis use, unspecified, uncomplicated; Z56.0 Unemployment, unspecified; Z87.891 Personal history of nicotine dependence
CPT/HCPCS: 47562; 81025; 88304; J0131; J1100; J1171; J1885; J2003; J2405; J2704; J3010

== ENCOUNTER → 2025-06-18 08:01 | Outpatient (BNV) | payer MEDICAID, SELFPAY | PROVIDERS: PCP Nurse Practitioner Family; Visit Provider Surgery | DX: K80.13 Calculus of gallbladder with acute and chronic cholecystitis with obstruction (principal) | CPT/HCPCS: 47562 ==

== ENCOUNTER 2025-06-30 10:29 | Outpatient (AMB) | payer MEDICAID, SELFPAY ==
--- NOTE | 2025-06-30 10:32 | MHC.OFFVIS ---
Vital Signs 06/30/25 10:36 Height 5 ft 4 in Weight 168 lb BMI 28.8 Intake Visit Reasons: S/P lap kallie Intake Note: Patient here s/p Laparoscopic cholecystectomy. Patient c/o: reports no complaints at this time. Surgery: (IGOR) 06-18-2025 Forging Press Operator Required: No Accompanied by: Self / Same As Patient Allergies SEASONAL ALLERGIES Allergy (Intermediate, Uncoded 06/30/25 10:37) RUNNY NOSE HPI HPI S/P lap kallie: Details: Reports she is doing well. Only has pain with ambulation at the epigastric trocar site. Intermittent sharp stabbing with ambulation. Appetite and bowel function are at baseline. Denies fevers or chills. She is experiencing some increased burping. No issues with incision sites, denies discharge, bleeding, redness or tenderness to palpation. 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 [facility] Medical History Asthma exacerbation section wound complication Asthma Surgical History Hx laparoscopic cholecystectomy (06/18/25) Hx of section Family History Other Asthma Social History Household Members: Family Housing: Apartment Do you presently have visiting nurse or other home services: No Alcohol intake: never Comment: counts correct Patient Tobacco Use Status: Former Tobacco user Substance Use Type: Marijuana service: No Current occupational status: unemployed Female Reproductive History Menstrual Age of Menarche: 8 Review of Systems Const All systems reviewed & are unremarkable except as noted in HPI and below Physical Exam Vital Signs: BMI result Body Mass Index 28.8 Const General: comfortable and no acute distress Orientation/consciousness: patient oriented x3 Resp Effort & Inspection: normal respiratory effort and able to speak in complete sentences GI Other: Incision sites appear well healed, there was some mild separation of the epigastric port site with a small amount of slough in the incision, unable to express any fluid, no surrounding erythema, nontender. Inspection: No distended Palpation (GI): Soft to palpation and nontender Neuro General: patient oriented x3 Assessment & Plan Assessment & Plan (1) S/P laparoscopic cholecystectomy: Code(s): Z90.49 - Acquired absence of other specified parts of digestive tract Category: Medical Plan 34-year-old female s/p laparoscopic cholecystectomy on 06/18/[address] Pendleton returning to the office for routine follow up. Patient overall doing very well. Has some stabbing pain intermittently with ambulation at the epigastric port site, I reassured her that this is appropriate at this time and should improve with time over the next couple of weeks to a month, recommended she continue activity restrictions no heavy lifting greater than 15 to 20 lb. Her appetite and bowel function are at baseline. Abdomen is soft and benign. Incision sites appear clean and dry, there was some mild separation of the epigastric port site with a small amount of slough. I reassured her that this was not infection, there was no surrounding erythema there was no fluid collection and was nontender to palpation. I did reinforce with a Steri-Strips and covered with a Band-Aid. Steri-Strips and stay on for the next few days, she can take it off at the end of the week. I did also covered this with a Band-Aid fracture security she should change this every day. She is okay to shower, advised against submerging in baths or pools. She understands this. Given the possibility of her having to restrain children at work we will give her a note to keep her out of work until July 17 when she can return with 0 restrictions. She is agreeable to this plan. She would like to follow up in 2 weeks prior to returning to work to make sure things were okay. She will return in 2 weeks or sooner with any concerns. Coding Level of Care Code Global (50650) Diagnoses S/P laparoscopic cholecystectomy Z90.49
[2025-06-30 10:36] VITALS: BMI 28.8
--- OUTSIDE RECORDS SUMMARY | 2025-06-30 11:39 | XMS_ITS | Encounter Summary ---
Author Organization [employer] Address [address] [place] [address] Care Team Providers Care Bowl Attendant Name Role Phone Nell Alarcon NP Primary Care Provider Reason for Visit * Reason Comments Med Refill Encounter Details Date Type Department Care Team (Late st Contact Info) Description 10/28/2024 Refill [facility] MEDICINE [address] [place], [place] [phone] Nell Alarcon NP [address] [place], [place] [phone] Class 1 obesity with body mass index [...] documented as of this encounter Care Teams Bowl Attendant Relationship Specialty Start Date End Date Nell Alarcon NP [address] [place] [id number] PCP - General Family Medicine 01/18/24 documented as of this encounter
--- OUTSIDE RECORDS SUMMARY | 2025-06-30 11:40 | XMS_ITS | Encounter Summary ---
Author Organization [employer] Address [address] [place] [address] Care Team Providers Care Cognos Bi Developer Name Role Phone Nell Alarcon NP Primary Care Provider [phone] Reason for Visit * Reason Onset Date Comments Med Refill 03/30/2025 Encounter Details Date Type Department Care Team ([facility] st Contact Info) Description 03/30/2025 Refill [facility] MEDICINE [address] [place], [place] [phone] Nell Alarcon NP [address] [place] [address] Social History Tobacco Use Types Packs/Day Years [...] MG/0.5ML solution auto-injector To be sent to: [facility] documented in this encounter Plan of Treatment Not on file documented as of this encounter Visit Diagnoses Not on filedocumented in this encounter Additional Health Concerns Assessment Noted Time PHQ-9 Depression Total Score: 3 02/14/20 25 10:54 AM EDT documented as of this encounter Care Teams Cognos Bi Developer Relationship Specialty Start Date End Date Nell Alarcon NP [address] [place] [address] PCP - General Family Medicine 01/18/24 documented as of this encounter
--- OUTSIDE RECORDS SUMMARY | 2025-06-30 11:40 | XMS_ITS | Clinical Summary ---
Author Organization [employer] [facility] Address [address] [place] [address] Care Team Providers Care Pin Ball Machine Mechanic Name Role Phone Jacquie Castle Primary [...] age to complete this topic Care Teams Pin Ball Machine Mechanic Relationship Specialty Start Date End Date Jacquie Castle DO [address] [place] [phone] PCP - General Family Medicine 02/16/23
--- OUTSIDE RECORDS SUMMARY | 2025-06-30 11:40 | XMS_ITS | Clinical Summary ---
Author Organization [employer] Address [address] [place] [address] 7 [place] [address] Care Team Providers Care Packager Name Role Phone DorianNell LEONOR Primary Care Provider [phone] Allergies No known active allergies Medications * [...] -advised not to touch -will refer to [facility] eye care -will prescribe eye drop [...] presented the case to Dr Madrigal at [facility] and I ask nurse to do a [...] Encounters Date Type Department Care Team Description 06/18/2025 Orders Only GENERIC EXTERNAL DATA DEPARTMENT Provider, Generic External Data 04/17/2025 11:15 AM EDT Office Visit [facility] [address] [place] [phone] Nell Alarcon NP Calculus of bile duct without cholecystitis and without obstruction (Primary Dx); Dietary counseling; Class 1 obesity due to excess calories with body mass index (BMI) of 33.0 to 33.9 in adult, unspecified whether serious comorbidity present 04/17/2025 Travel 04/16/2025 Telephone [facility] [address] [place] [address] Lizbeth Coleman MA Chart Prep 04/13/2025 Results Follow-Up [facility] [address] [place] [address] Tracey Riley RN Measles, Mumps, and Rubella (MMR) Antibodies (IgG) Panel, Immune Status 04/07/2025 Orders Only [facility] [address] [place], [place] [phone] Nell Alarcon NP Exposure to communicable disease (Primary Dx) 04/06/2025 Refill [facility] [address] [place], [place] [phone] Nell Alarcon NP Class 1 obesity due to excess calories without serious comorbidity with body mass index (BMI) of 33.0 to 33.9 in adult 03/30/2025 Refill [facility] [address] [place], [place] [phone] Nell Alarcon NP from Last 3 Months Immunizations Immunization Administration [...] history exists Depression Screening 02/13/2026 02/13/2025, 02/14/20 Disability Screening 02/13/2026 02/13/2025 SDOH Screening 02/13/2026 [...] Procedure Name Priority Date/Time Associated Diagnosis Comments GROSS AND MICROSCOPIC LEVEL 3 Routine 06/18/2025 10:12 AM EDT HCG, QL, URINE Routine 06/18/2025 8:06 AM EDT MEASLES, MUMPS, AND RUBELLA (MMR) AB (IGG) PANEL, IMMUNE STATUS Routine 04/07/2025 3:36 PM EDT Exposure to communicable disease HEPATITIS C ANTIBODY Routine 04/02/2024 12:51 PM EDT Routine screening for STI (sexually transmitted infection) HIV 1/2 ANTIGEN/ANTIBODY, FOURTH GENERATION W/RFL Routine 04/02/2024 12:51 PM EDT Routine screening for STI (sexually transmitted infection) PAP SMEAR Routine 10/30/2022 12:00 AM EST from Last 3 Months or Most Recently Relevant to Health Maintenance Results * Gross and Microscopic Level 3 (06/18/2025 10:12 AM EDT) 06/18/2025 10:1 2 AM EDT 06/18/2025 10:45 AM EDT [facility] - 06/19/2025 1:28 PM EDT ----- ------- Name: AydenCasie Age/Sex: 34/F : 1990 Unit#: [id number] Attend Dr: Jose R Pendleton MD Re06/18/25 Status: [facility] Location: [facility] Disch: ----- ------- SPEC : [id number] RECD: 06/18/25 STATUS: AKSHAT DIOP NUM: [id number] [place]: 06/18/[address] [facility] [address]: Jose R Pendleton MD ENTERED: 06/18/25 SP TYPE: Surgical OTHR DR: Nell Alarcon TINSEL MACHINE OPERATOR ORDERED: Gross Micro L3 Diagnosis Gallbladder, cholecystectomy: Chronic cholecystitis; cholelithiasis; cholesterolosis. Clinical History Calculus of gallbladder with acute cholecystitis Microscopic Description Microscopic sections reviewed. Material Received Gallbladder Gross Description Received in formalin labeled gallbladder is an intact, smooth and shaggy, montelongo, pink-purple gallbladder measuring 9.0 x 3.5 x 3.5 cm, resected in continuity with 0.4 cm of clipped yet patent cystic duct. Upon opening the gallbladder contains copious yellow-green bile and a 1.7 cm in greatest dimension hard yellow-green cholelith. The mucosa is finely reticulated, velvety, montelongo, green-brown with multiple diffuse white-yellow opaque superficial mucosal flecks. On sectioning the wall is edematous, montelongo-pink measuring up to 0.15 cm in thickness. Jowl Trimmer sections are submitted in a cassette labeled A1 to include the margin of resection of the cystic duct. CEDS IHC S/NG Disclaimer NOTE: Unless otherwise stated, all tissue is formalin-fixed and paraffin-embedded. Some or all of the immunohistochemical tests reported herein may have been developed and their performance characteristics determined by [facility]. They have not been cleared or approved by the U.S. Food and Drug Administration (FDA). However, the FDA has determined that such clearance or approval is not necessary. This laboratory is certified under the Clinical Laboratory Improvement Amendments of 1988 (CLIA) as qualified to perform high complexity clinical laboratory testing. CONTINUED ON NEXT PAGE ----- ------- Name: Casie Hensley Age/Sex: 34/F : 1990 Unit#: [id number] Attend Dr: Jose R Pendleton MD Re06/18/25 Status: [facility] Location: [facility] Disch: ----- ------- SPEC : [id number] RECD: 06/18/25-5 STATUS: AKSHAT DIOP NUM: [id number] [place]: 06/18/25-101[address] [facility] [address]: Jose R Pendleton MD ENTERED: 06/18/25-1057 SP TYPE: Surgical OTHR DR: Nell Alarcon NP ORDERED: Gross Micro L3 Copies To: Nell Alarcon NP [address] [phone] Jose R Pendleton MD [facility] General Surgeons [address] [place] [id number] ----- ------- Signed (signature on file) Matt Andreson MD 06/19/25 1328 ----- ------- END OF REPORT Generic External Data Provider LAB CYTOLOGY ORDE RABLES Final Result Performing Organization Address [facility] Co de Phone Number [facility] [address] [place] [phone] * HCG, Qualitative, Urine (06/18/2025 8:06 AM EDT) Pathologist [facility] Urine NEGATIVE NEGATIVE [facility] Comment:This test was develo ped to detect early . Falsenegative results may occur after the 5th - 7th week ofpregnancy when using this test method. If clinicallyindicated, consider a serum hCG. 06/18/2025 8:06 AM EDT 06/18/2025 8:29 AM EDT Generic External Data Provider LAB URINE ORDERAB LES Final Result Performing Organization Address [facility] de Phone Number [facility] [address] [place] [phone] * Measles, Mumps, and Rubella (MMR) Antibodies??(IgG) Panel, Immune Status (04/07/2025 3:36 PM EDT) Mumps Virus IgG Antibody 210.00 AU/mL [facility] Comment:AU/mL Interpretation ------- <9.00 Not consistent with immunity9.00-10.99 Equivocal>10.99 Consistent with immunityThe presence of mumps IgG antibody suggests immunizationor past or current infection with mumps virus. Rubella IgG Antibody 2.23 Index [facility] Comment:Index Interpretation ----- <0.90 Not consistent with immunity 0.90-0.99 Equivocal > or = 1.00 Consistent with immunityThe presence of rubella IgG antibody suggestsimmunization or past or current infection withrubella virus.THIS TEST WAS PERFORMED AT:[facility] [place] [phone] WARE MD Rubeola IgG (Measles) >300.00 AU/mL [facility] Comment:AU/mL Interpretation ----- <13.50 Not consistent with trqtguhm37.50-16.49 Equivocal>16.49 Consistent with immunityThe presence of measles IgG suggests immunization orpast or current infection with measles virus.For additional information, please refer tohttp://education.Pulsar/faq/YSR150(This link is being provided for informational/educational purposes only.) Blood Venous blood specimen / Unknown 04/07/2025 3:36 PM EDT 04/07/2025 5:13 PM EDT Nell Alarcon TINSEL MACHINE OPERATOR LAB BLOOD ORDERABLES Final Resul t Performing Organization Address [facility]/ZIP Co de Phone Number [facility] [address] [place] [phone] * Hepatitis C Ab (04/02/2024 12:51 PM EDT) Hepatitis C Antibody Nonreactive Nonreactive [facility] Comment:Antibodies to HCV no t detected; does not exclude early acuteHCV infection. Blood Venous blood specimen / Unknown 04/02/2024 12:51 PM EDT 04/02/2024 3:59 PM EDT Nell Alarcon TINSEL MACHINE OPERATOR LAB BLOOD ORDERABLES Final Resul t Performing Organization Address [facility]/ZIP Co de Phone Number [facility] [address] [place] [phone] * HIV-1/2 Antigen and Antibodies, Fourth Generation, with Reflexes (04/02/2024 12:51 PM EDT) HIV AB/AG Nonreactive Nonreactive [facility] Comment:HIV-1 p24 Ag and/or HIV-1/HIV-2 Ab not detected.A test result that is nonreactive does not exclude thepossibility of exposure to or infection with HIV-1 and/orHIV-2. Nonreactive results in this assay for individualswith prior exposure to HIV-1 and/or HIV-2 may be due toantigen and antibody levels that are below the limit ofdetection of this assay.The [employer] HIV Ag/Ab Combo assay result andsupplemental assay results should be interpreted inconjunction with the patient's clinical presentation,history and other laboratory results. If the results areinconsistent with clinical evidence, additional testing issuggested to confirm the result. Blood Venous blood specimen / Unknown 04/02/2024 12:51 PM EDT 04/02/2024 3:59 PM EDT Nell Alarcon NP LAB BLOOD ORDERABLES Final Resul t Performing Organization Address [facility]/ZIP Co de Phone Number [facility] [address] [place] [phone] * Pap Smear (10/30/2022 12:00 AM EST) Swab Historical Provider MD LAB CYTOLOGY ORDERABLES F inal Result Performing Organization Address City/[facility] Co de Phone Number EXTERNAL LAB from Last 3 Months or Most Recently Relevant to Health Maintenance [facility] Care Teams Packager Relationship Specialty Start Date End Date Nell Alarcon NP [address] [place] [address] PCP - General Family Medicine 01/18/24
--- OUTSIDE RECORDS SUMMARY | 2025-06-30 11:40 | XMS_ITS | Encounter Summary ---
Author Organization [employer] Address [address] [address] Care Team Providers Care Driver/Guide Name Role Phone Jacquie Castle DO Primary Care Provider + [phone] Jacquie Castle DO Primary Care Provider + [phone] Nell Alarcon NP Primary Care Provider [phone] Encounter Details Date Type Department Care Team (Late st Contact Info) Description 10/26/2022 Orders Only [facility] [address] [place] [address] Jacquie Deras LPN Social History Tobacco Use [...] on filedocumented in this encounter Care Teams Driver/Guide Relationship Specialty Start Date End Date Jacquie Castle DO [address] [place] [address] PCP - General Family Medicine 10/01/18 08/02/23 Jacquie Castle DO [address] [place], [place] [phone] PCP - General Family Medicine 11/08/23 01/17/24 Nell Alarcon NP [address] [place] [address] PCP - General Family Medicine 01/18/24 documented as of this encounter
--- OUTSIDE RECORDS SUMMARY | 2025-06-30 11:40 | XMS_ITS | Clinical Summary ---
Author Organization [facility] Address [address] [place] [address] Care Team Providers Care Print Line Feeder Name Role Phone Donaldsondra Jacquie Michael LEVY Primary Care Provider [phone] Surgical History Surgery Date Site/Laterality Comments SECTION [...] - Td or Tdap) 09/25/2027 09/25/2017, 06/22/2014 RSV Immunization Adult Patients (1 - 1-dose 75+ series) 12/13/2063 HPV [...] age to complete this topic Care Teams Print Line Feeder Relationship Specialty Start Date End Date Jacquie Castle DO [address] [place] [address] PCP - General 02/16/23
--- OUTSIDE RECORDS SUMMARY | 2025-06-30 11:40 | XMS_ITS | Encounter Summary ---
Author Organization [employer] Address 75 [facility] [address] [place] [address] Care Team Providers Care Technology Adoption Manager Name Role Phone Jacquie Castle DO Primary Care Provider + [phone] Jacquie Castle DO Primary Care Provider [phone] Nell Alarcon NP Primary Care Provider [phone] Encounter Details Date Type Department Care Team ([facility] st Contact Info) Description 01/30/2023 Orders Only [facility] [address] [place], [place] [phone] Jacquie Deras LPN Social History Tobacco Use [...] on filedocumented in this encounter Care Teams Technology Adoption Manager Relationship Specialty Start Date End Date Jacquie Castle DO [address] [place] [address] [phone] PCP - General Family Medicine 10/01/18 08/02/23 Jacquie Castle DO [address] [place] [address] PCP - General Family Medicine 11/08/23 01/17/24 Nell Alarcon NP [address] [place] [address] PCP - General Family Medicine 01/18/24 documented as of this encounter
--- OUTSIDE RECORDS SUMMARY | 2025-06-30 11:40 | XMS_ITS | Encounter Summary ---
Author Organization [employer] Address 75 [facility] [address] [place] [address] Care Team Providers Care Warp Bleaching Vat Tender Name Role Phone Jacquie Castle DO Primary Care Provider + [phone] Jacquie Castle DO Primary Care Provider + [phone] Nell Alarcon NP Primary Care Provider [phone] Encounter Details Date Type Department Care Team (Late st Contact Info) Description 06/19/2023 Orders Only [facility] [address] [place] [address] Pippa Mercer, CNM [address] [place] [address] Social History Tobacco Use Types Packs/Day Years [...] on filedocumented in this encounter Care Teams Warp Bleaching Vat Tender Relationship Specialty Start Date End Date Jacquie Castle DO [address] [place] [address] PCP - General Family Medicine 10/01/18 08/02/23 Jacquie Castle DO [address] [place] [address] PCP - General Family Medicine 11/08/23 01/17/24 Nell Alarcon NP [address] [place] [address] PCP - General Family Medicine 01/18/24 documented as of this encounter
--- OUTSIDE RECORDS SUMMARY | 2025-06-30 11:40 | XMS_ITS | Encounter Summary ---
Author Organization [employer] Address [address] [address] Care Team Providers Care Yeast Culture Developer Name Role Phone Jacquie Castle DO Primary Care Provider + [phone] Jacquie Castle DO Primary Care Provider + [phone] Nell Alarcon NP Primary Care Provider [phone] Encounter Details Date Type Department Care Team (Late st Contact Info) Description 12/06/2022 Orders Only [facility] [address] [place] [address] Jacquie Deras LPN Social History Tobacco Use [...] on filedocumented in this encounter Care Teams Yeast Culture Developer Relationship Specialty Start Date End Date Jacquie Castle DO [address] [place] [address] PCP - General Family Medicine 10/01/18 08/02/23 Jacquie Castle DO [address] [place], [place] [phone] PCP - General Family Medicine 11/08/23 01/17/24 Nell Alarcon NP [address] [place] [address] PCP - General Family Medicine 01/18/24 documented as of this encounter
--- OUTSIDE RECORDS SUMMARY | 2025-06-30 11:40 | XMS_ITS | Encounter Summary ---
Author Organization [employer] Address 75 [facility] 7 [place] [address] Care Team Providers Care Supervisor Line Department Name Role Phone RudyNell hendrix LEONOR Primary Care Provider Reason for Visit * Reason Comments Med Refill Encounter Details Date Type Department Care Team (Late st Contact Info) Description 06/17/2024 Refill [facility] [address] [place] [address] Jacquie Castle DO [address] [place] [address] Social History Tobacco Use Types Packs/Day Years [...] documented as of this encounter Care Teams Supervisor Line Department Relationship Specialty Start Date End Date Nell Alarcon NP [address] [place] [address] PCP - General Family Medicine 01/18/24 documented as of this encounter
== END 2025-06-30 10:46 | disposition home or self-care (01) ==
LOC: HO.HGS 10:29
PROVIDERS: PCP Nurse Practitioner Family
DX: Z90.49 Acquired absence of other specified parts of digestive tract (principal)
CPT/HCPCS: 99024

== ENCOUNTER → 2025-06-30 10:29 | Outpatient (BNVA) | payer MEDICAID, SELFPAY | PROVIDERS: PCP Nurse Practitioner Family | DX: Z90.49 Acquired absence of other specified parts of digestive tract (principal); Z98.890 Other specified postprocedural states | CPT/HCPCS: 99212 ==

== ENCOUNTER 2025-07-14 14:11 | Outpatient (REF) | payer MEDICAID, SELFPAY ==
--- OUTSIDE RECORDS SUMMARY | 2025-07-14 13:45 | XMS_ITS | Encounter Summary ---
Author Organization [employer] Address [address] [place] [address] 7 [place] [address] Care Team Providers Care Disk Recordist Name Role Phone Nell Alarcon NP Primary Care Provider [phone] Encounter Details Date Type Department Care Team ([facility] st Contact Info) Description 07/14/2025 1:45 PM EDT Office Visit [facility] [address] [place] [address] Nell Alarcon NP [address] [place] [address] Seasonal allergic rhinitis due to other allergic trigger (Primary Dx); Allergy, initial encounter; Obesity (BMI 30.0-34.9); Cellulitis of face Social History Tobacco Use Types Packs/Day Years Used Date Smoking Tobacco: Former Passive Smoke Exposure: Past Smokeless Tobacco: Never Tobacco Cessation:Counseling Given: Not [...] AM EDT documented as of this encounter Last Filed Vital Signs Vital Sign Reading Time Taken Comments Blood Pressure 128/86 07/14/2025 1:53 PM EDT Pulse 82 07/14/2025 1:53 PM EDT Temperature 37.2 C (98.9 F) 07/14/2025 1:53 PM EDT Respiratory Rate 16 07/14/2025 1:53 PM EDT Oxygen Saturation 99% 07/14/2025 1:53 PM EDT Inhaled Oxygen Concentration - - Weight 78.9 kg (174 lb) 07/14/2025 1:53 PM EDT Height 160.5 cm (5' 3.19 ) 07/14/2025 1:53 PM ED T Body Mass Index 30.64 07/14/2025 1:53 PM EDT documented in this encounter Progress Notes * Nell Alarcon NP - 07/14/2025 1:45 PM EDT Images from the original note were not included. Casie Cates Ayden is a 34 y.o. female who presents to the office for No chief complaint on file. Problem List[1] Medical History[2] Allergies[3] Casie Hensley, 34-year-old female - Sneezing and very dry nose every morning, ongoing - History of using Georgina, currently taking it for symptoms - Previously used nasal spray, stopped due to persistent dryness, no improvement - Reports dry, cracked, and inflamed nose, sometimes with yellow or gold crust - Denies fever - Last received weight loss injections a few months ago - Lost 30 lbs with prior weight loss injections, some weight regained - No exercise or nutrition efforts in the last month due to postoperative recovery - History of gallbladder removal Review of Systems BP 128/86 (BP Location: Right arm, Patient Position: Sitting, BP Cuff Size: Adult) Pulse 82 Temp 98.9 ??F (37.2 ??C) (Oral) Resp 16 Ht 5' 3.19 (1.605 m) Wt 174 lb (78.9 kg) LMP 06/17/2025 (Approximate) SpO2 99% BMI 30.64 kg/m?? Physical Exam Vitals reviewed. HENT: Head: Normocephalic and atraumatic. Nose: Congestion and rhinorrhea present. Comments: Erythema, localized, tenderness at entrance or nares Eyes: Conjunctiva/sclera: Conjunctivae normal. Cardiovascular: Rate and Rhythm: Normal rate and regular rhythm. Pulmonary: Effort: Pulmonary effort is normal. Breath sounds: Normal breath sounds. Musculoskeletal: Cervical back: Normal range of motion and neck supple. Neurological: General: No focal deficit present. Mental Status: She is alert. - HEENT: Nasal mucosa appears dry and cracked with mild inflammation. Possible infection with yellow crusting. Results: Orders Only on 06/18/2025 Component Date Value Ref Range Status Urine 06/18/2025 NEGATIVE NEGATIVE Final This test was developed to detect early . Falsenegative results may occur after the 5th - 7th week ofpregnancy when using this test method. If clinicallyindicated, consider a serum hCG. Assessment & Plan Seasonal allergic rhinitis due to other allergic trigger Allergy, initial encounter Orders: fluticasone (Flonase) 50 MCG/ACT nasal spray; Administer 1 spray into each nostril Once per day. Shake gently. Before first use, prime pump. After use, clean tip and replace cap. Obesity (BMI 30.0-34.9) Orders: Hemoglobin A1c; Future Basic Metabolic Panel; Future Cellulitis of face Assessment & Plan Seasonal allergic rhinitis due to other allergic trigger: - Allergic rhinitis with persistent symptoms despite use of Georgina and nasal spray; associated with dry and cracked nasal mucosa. - Renewed nasal spray prescription. Recommended increased water intake for hydration. Suggested consideration of a humidifier at home; inquiry sent regarding DME coverage for humidifier. Advised to monitor for worsening symptoms and report if nasal spray exacerbates dryness. Obesity (BMI 30.0-34.9): - Obesity with recent weight loss followed by partial regain; candidate for pharmacologic intervention for weight management. - Submitted prescription for Zepbound for weight loss, pending insurance approval. Ordered routine blood work to support medication coverage and assess for diabetes. Recommended resumption of nutrition and exercise regimen. Advised to confirm with surgical team prior to restarting Zepbound due to recent postoperative status. - Risks and side effects: Advised to monitor for nausea or abdominal pain upon restarting Zepbound;instructed to contact provider and surgical team if complications arise. Cellulitis of face: - Localized cellulitis/impetigo of the nasal area, likely secondary to dry skin and bacterial colonization. - Prescribed topical mupirocin (Bactroban) ointment to be applied to the affected area of the nose three times daily for 5-10 days. Advised to avoid deep application and to use a Q-tip for local administration. Instructed to report if no improvement after treatment. Prescription - Intranasal allergy spray renewed, one-year supply - Mupirocin (Bactroban) ointment to external nose, apply with Q-tip three times daily for 10 days - Zepbound for weight loss, submit for insurance coverage; advise monitoring for nausea and abdominal pain Appointments - Obtain routine blood work (labs) downstairs during visit - Schedule Pap smear at front end alignment specialist Current Medications[4] Based on our discussion, I have outlined the following instructions for you: - Drink more water throughout the day to help keep your body hydrated. - Think about getting a humidifier for your home to add moisture to the air. - Pay attention to your symptoms. If your nasal spray makes your nose feel even linter drier operator or your symptoms get worse, let your healthcare provider know. - Start your healthy eating and exercise routine again to help with weight management. - Before you start taking Zepbound again, check with your surgical team. If you notice nausea or stomach pain after restarting Zepbound, contact your healthcare provider and surgical team. - Use a Q-tip to gently apply a thin layer of mupirocin ointment to the affected area of your nose three times a day for 5-10 days. Do not put the ointment deep inside your nose. - If your nose does not get better after using the ointment, let your healthcare provider know. Next appointment(s): - Obtain routine blood work (labs) downstairs during visit - Schedule Pap smear at front end alignment specialist Thank you again for your visit, and we look forward to supporting you in your journey to better health. This note was drafted using Ambient (AI) technology. The patient/patient's guardian has been informed and has consented to the use of this technology: Yes [1] Patient Active Problem List Diagnosis Recurrent major depression ([facility]) Mild persistent asthma Low back pain Allergic rhinitis Dizziness Other headache syndrome Palpitations Abdominal pain, lower Allergies Fatigue Depression Routine screening for STI (sexually transmitted infection) Left corneal abrasion Skin irritation Neck pain Encounter for surveillance of implantable subdermal contraceptive Class 1 obesity with body mass index (BMI) of 33.0 to 33.9 in adult Visual disturbance Dietary counseling Exercise counseling Seborrheic dermatitis Strep pharyngitis Cholecystitis Calculus of bile duct without cholecystitis and without obstruction Obesity (BMI 30.0-34.9) Cellulitis of face [2] Past Medical History: Diagnosis Date COPD (chronic obstructive pulmonary disease) ([facility]) Tobacco dependence syndrome 07/27/2015 [3] No Known Allergies [4] Current Outpatient Medications: Advair HFA 115-21 MCG/ACT inhaler, Inhale 1 puff Once per day., Disp: , Rfl: albuterol (Ventolin HFA) 108 (90 Base) MCG/ACT inhaler, INHALE 2 PUFFS BY MOUTH EVERY 4 TO 6 HOURS NEEDED FOR WHEEZING OR SHORTNESS OF BREATH, Disp: 18 g, Rfl: 1 EPINEPHrine (Epipen) 0.3 MG/0.3ML injection syringe, BRING ON DAYS DE IMUNOTERAPIA, Disp: , Rfl: fexofenadine (Georgina) 180 MG tablet, Take 1 tablet (180 mg) by mouth if needed each day (Allergies)., Disp: 90 tablet, Rfl: 1 fluticasone (Flonase) 50 MCG/ACT nasal spray, Administer 1 spray into each nostril Once per day. Shake gently. Before first use, prime pump. After use, clean tip and replace cap., Disp: 48 g, Rfl: 0 mupirocin (Bactroban) 2 % ointment, Apply topically 3 times daily for 10 days., Disp: 22 g, Rfl: 0 olopatadine (Pataday) 0.2 % ophthalmic solution, Administer 1 drop into affected eye(s) Once per day., Disp: 2.5 mL, Rfl: 2 omeprazole (PriLOSEC) [address] capsule, Take 1 capsule (20 mg) by mouth before breakfast and beforeevening meal. Do not crush or chew., Disp: 180 capsule, Rfl: 3 Tirzepatide-Weight Management (Zepbound) 2.5 MG/0.5ML solution auto-injector, Inject 0.5 mL (2.5 mg) under the skin 1 (one) time per week for 28 days., Disp: 2 mL, Rfl: 0 documented in this encounter Miscellaneous Notes * Assessment & Plan Note - Nell Alarcon NP - 07/14/2025 1:45 PM EDTAssociated Problem(s): Allergic rhinitis * Assessment & Plan Note - Nell Alarcon NP - 07/14/2025 1:45 PM EDTAssociated Problem(s): Allergies Orders: fluticasone (Flonase) 50 MCG/ACT nasal spray; Administer 1 spray into each nostril Once per day. Shake gently. Before first use, prime pump. After use, clean tip and replace cap. * Assessment & Plan Note - Nell Alarcon NP - 07/14/2025 1:45 PM EDTAssociated Problem(s): Obesity (BMI 30.0-34.9) Orders: Hemoglobin A1c; Future Basic Metabolic Panel; Future * Assessment & Plan Note - Nell Alarcon NP - 07/14/2025 1:45 PM EDTAssociated Problem(s): Cellulitis of face documented in this encounter Plan of Treatment Not on file documented as of this encounter Procedures Procedure Name Priority Date/Time Associated Diagnosis Comments HEMOGLOBIN A1C Routine 07/14/2025 2:16 PM EDT Obesity (BMI 30.0-34.9) BASIC METABOLIC PANEL Routine 07/14/2025 2:16 PM EDT Obesity (BMI 30.0-34.9) documented in this encounter Results * (ABNORMAL) Basic Metabolic Panel (07/14/2025 2:16 PM EDT) Sodium 141 135 - 145 mmol/L [facility] Potassium 3.4 3.3 - 5.1 mmol/L [facility] Chloride 107 96 - 108 mmol/L [facility] Carbon Dioxide 27 22 - 29 mmol/L [facility] Anion Gap 10(L) 12 - 20 [facility] Urea Nitrogen (BUN) 7(L) 9 - 16 mg/dL [facility] Creatinine, Serum 0.56 0.5 - 1.4 mg/dL [facility] Estimated Glomerular Filt Rate >60 [facility] Comment:Chronic Kidney Disea se: Estimated GFR < 60 mL/min/[id number] Kidney Disease: Estimated GFR < 15 mL/min/1.73m2 Glucose 83 60 - 115 mg/dL [facility] Calcium 8.7 8.4 - 10.2 mg/dL [facility] Blood Venous blood specimen / Unknown 07/14/2025 2:16 PM EDT 07/14/2025 4:15 PM EDT us Nell Alarcon PLANT CUSTODIAN LAB BLOOD ORDERABLES Final Resul t Performing Organization Address [facility] Co de Phone Number [facility] [address] [place] [phone] * Hemoglobin A1c (07/14/2025 2:16 PM EDT) Hemoglobin A1c 5.5 <6.0 % [facility] Comment:Hemoglobin A1C Refer ence Range Adults: 4.8 - 6.0 % Non diabetic: < 6.0 % Goal: < 7.0 %Additional Action Suggested: > 8.0 %Note: Hemoglobin A1c results are invalid for patients with abnormal amounts of HbF. Blood transfusions may impact the HbA1c concentration in the patient sample. Estimated Average Glucose 111 mg/dL [facility] Comment:eAG = Estimated ave rage glucose which is %A1C expressed asaverage glucose, using the formula of the [id number] Glucose study (ADAG), Diabetes Care, Vol.31,#8,May. 2007 Blood Venous blood specimen / Unknown 07/14/2025 2:16 PM EDT 07/14/2025 4:15 PM EDT us Nell Alarcon PLANT CUSTODIAN LAB BLOOD ORDERABLES Final Resul t Performing Organization Address [facility] Co de Phone Number [facility] [address] [place] [address] [phone] documented in this encounter Visit Diagnoses Diagnosis Seasonal allergic rhinitis due to other allergic trigger- Primary Allergy, initial encounter Obesity (BMI 30.0-34.9) Cellulitis of face Cellulitis and abscess of face documented in this encounter Additional Health Concerns Assessment Noted Time PHQ-9 Depression Total Score: 3 02/14/20 25 10:54 AM EDT documented as of this encounter Care Teams Disk Recordist Relationship Specialty Start Date End Date Nell Alarcon NP [address] [place] [phone] PCP - General Family Medicine 01/18/24 documented as of this encounter
[2025-07-14 16:42] LABS: Anion Gap 10 (12-20); Blood Urea Nitrogen 7 mg/dL (9-16); Calcium 8.7 mg/dL (8.4-10.2); Carbon Dioxide 27 mmol/L (22-29); Chloride 107 mmol/L (96-108); Estimated Glomerular Filt Rate > 60; Potassium 3.4 mmol/L (3.3-5.1); Sodium 141 mmol/L (135-145)
--- OUTSIDE RECORDS SUMMARY | 2025-07-14 17:09 | XMS_ITS | Encounter Summary ---
Author Organization [employer] Address [address] [place] [address] Care Team Providers Care Plant Puller Name Role Phone Nell Alarcon NP Primary Care Provider [phone] Reason for Visit * Reason Comments Med Refill Encounter Details Date Type Department Care Team (Late st Contact Info) Description 10/28/[address] [facility] [address] [place], [place] [phone] Nell Alarcon NP [address] [place], [place] [phone] Class 1 obesity with body mass index [...] documented as of this encounter Care Teams Plant Puller Relationship Specialty Start Date End Date Nell Alarcon NP [address] [place] [phone] PCP - General Family Medicine 01/18/24 documented as of this encounter
--- OUTSIDE RECORDS SUMMARY | 2025-07-14 17:10 | XMS_ITS | Clinical Summary ---
Author Organization [employer] Address [address] [place] [address] 7 [place] [address] Care Team Providers Care Mechanic Marine Engine Name Role Phone Dorian Nell LEONOR Primary Care Provider [phone] Allergies No known active allergies Medications * This document contains information received from the source organization and may not represent a complete record from that organization. EPINEPHrine (Epipen) 0.3 MG/0.3ML injection syringe BRING ON DE IMUNOTERAPIA 04/27/20 23 Active omeprazole (PriLOSEC) [address] capsuleIndicat ions:Gastroeso phageal reflux disease, unspecified whether esophagitis present Take 1 capsule (20 mg) by mouth before breakfast and before evening meal. Do not crush or chew. 180 capsule 3 07/04/20 24 Active olopatadine (Pataday) 0.2 % ophthalmic solution Administer 1 drop into affected eye(s) Once per day. 2.5 mL 2 08/19/20 24 Active Advair HFA 115-21 MCG/ACT inhaler Inhale 1 puff Once per day. 06/25/20 24 Active albuterol (Ventolin HFA) 108 (90 Base) MCG/ACT inhaler INHALE 2 PUFFS BY MOUTH EVERY 4 TO 6 HOURS NEEDED FOR WHEEZING OR SHORTNESS OF BREATH 18 g 1 09/18/20 24 Active fexofenadine (Georgina) 180 MG tabletIndicati ons:Seasonal allergic rhinitis due to other allergic trigger Take 1 tablet (180 mg) by mouth if needed each day (Allergies). 90 tablet 1 02/14/20 25 2024 Active fluticasone (Flonase) 50 MCG/ACT nasal sprayIndicatio ns:Allergy, initial encounter Administer 1 spray into each nostril Once per day. Shake gently. Before first use, prime pump. After use, clean tip and replace cap. 48 g 07/14/20 25 2025 Active Tirzepatide-We ight Management (Zepbound) 2.5 MG/0.5ML solution auto-injector Inject 0.5 mL (2.5 mg) under the skin 1 (one) time per week for 28 days. 2 mL 07/14/20 25 2024 Active mupirocin (Bactroban) 2 % ointment Apply topically 3 times daily for 10 days. 22 g 07/14/20 25 2024 Active fluticasone (Flonase) 50 MCG/ACT nasal sprayIndicatio ns:Allergy, initial encounter INSTILL 1 SPRAY IN EACH NOSTRIL ONCE DAILY SHAKE GENTLY 48 g 03/13/20 25 2024 Discontinued(R eorder (will not trigger notification to Pharmacy)) Active Problems Problem Noted Date Diagnosed Date Obesity (BMI 30.0-34.9) 07/14/2025 Assessment & Plan (07/14/2025 2:11 PM EDT): Orders: Hemoglobin A1c; Future Basic Metabolic Panel; Future Cellulitis of face 07/14/2025 Assessment & Plan (07/14/2025 2:11 PM EDT): Calculus of bile duct withou t cholecystitis [...] Reece Madsen MD 03/10/2025 04:29 PM EDT Dictated By: Reece Madsen MD Signed By: <Electronically signed by Reece Madsen MD in OV> 03/10/25 1629 Assessment & Plan (04/17/2025 12:07 PM EDT): Reviewed nutrition recs S/s to report Hydrate call into surgical team office, they willl call pt with scheduling availability after discussing with RN Antonio pharyngitis 03/17/2025 Cholecystitis 03/17/2025 Assessment & Plan [...] -advised not to touch -will refer to [facility] eye care -will prescribe eye drop Skin irritation 03/13/2024 Assessment & Plan (03/14/2024 6:47 AM EDT): -left ear lobe, likely due to earring -apply abx ointment -follow-up with PCP as scheduled Allergies 01/18/2024 Assessment & Plan (07/14/2025 2:11 PM EDT): Orders: fluticasone (Flonase) 50 MCG/ACT nasal spray; Administer 1 spray into each nostril Once per day. Shake gently. Before first use, prime pump. After use, clean tip and replace cap. Assessment & Plan (08/19/2024 6:32 PM EST): [...] presented the case to Dr Madrigal at [facility] and I ask [...] 07/27/2015 Allergic rhinitis 07/27/2015 Assessment & Plan (07/14/2025 2:11 PM EDT): Assessment & Plan (02/13/2025 3:08 PM EDT): [...] Encounters Date Type Department Care Team Description 07/14/2025 1:45 PM EDT Office Visit [address] [address] Nell Alarcon NP Seasonal allergic rhinitis due to other allergic trigger (Primary Dx); Allergy, initial encounter; Obesity (BMI 30.0-34.9); Cellulitis of face 07/14/2025 Travel 07/10/[address] [address] Nell Alarcon NP Medication Question; Call Back Request 06/18/2025 Orders Only GENERIC EXTERNAL DATA DEPARTMENT Provider, Generic External Data 04/17/2025 11:15 AM EDT Office Visit [address] [address] Nell Alarcon NP Calculus of bile duct without cholecystitis and without obstruction (Primary Dx); Dietary counseling; Class 1 obesity due to excess calories with body mass index (BMI) of 33.0 to 33.9 in adult, unspecified whether serious comorbidity present 04/17/2025 Travel 04/16/[address] [address] Lizbeth Coleman [place] Chart Prep 04/13/2025 Results Follow-Up [facility] [address] [place] [address] Tracey Riley, OLIVIA Measles, Mumps, and Rubella (MMR) Antibodies (IgG) Panel, Immune Status from Last 3 Months Immunizations Immunization Administration [...] Mass Index 30.64 07/14/2025 1:53 PM EDT Plan of Treatment Health Maintenance Due [...] 06/15/2021, 03/23/2021 Influenza Vaccine (#1) 2025 9, 08/05/2019, 06/25/2018, Additional history exists Depression Screening 02/13/2026 02/13/2025, 02/14/20 Disability Screening 02/13/2026 02/13/2025 SDOH Screening 02/13/2026 02/13/2025 Alcohol/Substance Use Screening 04/17/2026 04/17/2025 Tobacco Screening 07/14/2026 07/14/2025 DTaP/Tdap/Td Vaccines (3 - Td or Tdap) 09/25/2027 09/25/2017, 06/22/2014 Zoster Vaccines (1 of 2) 2038 RSV Patients and Patients Aged 60 years or older (1 - 1-dose 75+ series) 12/13/2063 HPV Vaccines Completed 12/16/2018, 06/02, 03/25/2013, Additional history exists HIV Screening Completed 04/02/2024, 08/19/2020 Hepatitis C [...] Procedure Name Priority Date/Time Associated Diagnosis Comments BASIC METABOLIC PANEL Routine 07/14/2025 2:16 PM EDT Obesity (BMI 30.0-34.9) HEMOGLOBIN A1C Routine 07/14/2025 2:16 PM EDT Obesity (BMI 30.0-34.9) GROSS AND MICROSCOPIC LEVEL 3 Routine 06/18/2025 10:12 AM EDT HCG, QL, URINE Routine 06/18/2025 8:06 AM EDT HEPATITIS C ANTIBODY Routine 04/02/2024 12:51 PM EDT Routine screening for STI (sexually transmitted infection) HIV 1/2 ANTIGEN/ANTIBODY, FOURTH GENERATION W/RFL Routine 04/02/2024 12:51 PM EDT Routine screening for STI (sexually transmitted infection) PAP SMEAR Routine 10/30/2022 12:00 AM EST from Last 3 Months or Most Recently Relevant to Health Maintenance Results * Hemoglobin A1c (07/14/2025 2:16 PM EDT) Hemoglobin A1c 5.5 <6.0 % [facility] Comment:Hemoglobin A1C Refer ence Range Adults: 4.8 - 6.0 % Non diabetic: < 6.0 % Goal: < 7.0 %Additional Action Suggested: > 8.0 %Note: Hemoglobin A1c results are invalid for patients with abnormal amounts of HbF. Blood transfusions may impact the HbA1c concentration in the patient sample. Estimated Average Glucose 111 mg/dL [facility] Comment:eAG = Estimated ave rage glucose which is %A1C expressed asaverage glucose, using the formula of the B9O-TlcusapSdajzcy Glucose study (ADAG), Diabetes Care, Vol.31,#8,Aug. 2007 Blood Venous blood specimen / Unknown 07/14/2025 2:16 PM EDT 07/14/2025 4:15 PM EDT us Nell Alarcon NP LAB BLOOD ORDERABLES Final Resul t [facility] [address] [place], [place] [phone] * (ABNORMAL) Basic Metabolic Panel (07/14/2025 2:16 PM EDT) Sodium 141 135 - 145 mmol/L [facility] Potassium 3.4 3.3 - 5.1 mmol/L [facility] Chloride 107 96 - 108 mmol/L [facility] Carbon Dioxide 27 22 - 29 mmol/L [facility] Anion Gap 10(L) 12 - 20 [facility] Urea Nitrogen (BUN) 7(L) 9 - 16 mg/dL [facility] Creatinine, Serum 0.56 0.5 - 1.4 mg/dL [facility] Estimated Glomerular Filt Rate >60 [facility] Comment:Chronic Kidney Disea se: Estimated GFR < 60 mL/min/1.63d7Udgsfk Kidney Disease: Estimated GFR < 15 mL/min/1.73m2 Glucose 83 60 - 115 mg/dL [facility] Calcium 8.7 8.4 - 10.2 mg/dL [facility] Blood Venous blood specimen / Unknown 07/14/2025 2:16 PM EDT 07/14/2025 4:15 PM EDT us Nell Alarcon NP LAB BLOOD ORDERABLES Final Resul t [facility] [address] [place] [phone] * Gross and Microscopic Level 3 (06/18/2025 10:12 AM EDT) 06/18/2025 10:1 2 AM EDT 06/18/2025 10:45 AM EDT Narrative [facility] - 06/19/2025 1:28 PM EDT ----- ------- Name: Casie Hensley Age/Sex: 34/F : 1990 Unit#: [id number] Attend Dr: Jose R Pendleton MD Re06/18/25 Status: [facility] Location: [facility] Disch: ----- ------- SPEC : [id number] RECD: 06/18/25-1044 STATUS: AKSHAT DIOP NUM: [id number] [place]: 06/18/25-[address] [facility] [address]: Jose R Pendleton MD ENTERED: 06/18/25-1056 SP TYPE: Surgical OTHR DR: Nell Alarcon SOLUTION MIXER ORDERED: Gross Micro L3 Diagnosis Gallbladder, cholecystectomy: [...] measuring up to 0.15 cm in thickness. Site Interpreter sections are submitted in a cassette labeled A1 to include the margin of resection of the cystic duct. CEDS IHC S/NG Disclaimer NOTE: Unless otherwise stated, all tissue is formalin-fixed and paraffin-embedded. Some or all of the immunohistochemical tests reported herein may have been developed and their performance characteristics determined by [facility]. They have not been cleared or [...] Casie Hensley Age/Sex: 34/F : 1990 Unit#: [id number] Attend Dr: Jose R Pendleton MD Re06/18/25 Status: [facility] Location: [facility] Disch: ----- ------- SPEC : [id number] RECD: 06/18/25-5 STATUS: AKSHAT DIOP NUM: [id number] [place]: 06/18/25-[address] [facility] [address]: Jose R Pendleton MD ENTERED: 06/18/25-105 SP TYPE: Surgical OTHR DR: Nell Alarcon NP ORDERED: Gross Micro L3 Copies To: Nell Alarcon NP [address] [phone] Jose R Pendleton MD [facility] Surgeons [address] [place] [phone] ----- ------- Signed (signature on file) Matt Anderson MD 06/19/25 1328 ----- ------- END OF REPORT us Generic External Data Provider LAB CYTOLOGY ORDKatelin RABLES Final Result Performing Organization Address [facility] de Phone Number [facility] [address] [place] [phone] * HCG, Qualitative, Urine (06/18/2025 8:06 AM EDT) Pathologist [facility] Urine NEGATIVE NEGATIVE [facility] Comment:This test was develo ped to detect early . Falsenegative results may occur after the 5th - 7th week ofpregnancy when using this test method. If clinicallyindicated, consider a serum hCG. 06/18/2025 8:06 AM EDT 06/18/2025 8:29 AM EDT us Generic External Data Provider LAB URINE ORDERAB LES Final Result Performing Organization Address [facility] de Phone Number [facility] [address] [place] [address] [phone] * Hepatitis C Ab (04/02/2024 12:51 PM EDT) [facility] Hepatitis C Antibody Nonreactive Nonreactive [facility] Comment:Antibodies to HCV no t detected; does not exclude early acuteHCV infection. Blood Venous blood specimen / Unknown 04/02/2024 12:51 PM EDT 04/02/2024 3:59 PM EDT Nell Alarcon NP LAB BLOOD ORDERABLES Final Resul t Performing Organization Address City/[facility]/ZIP Co de Phone Number [facility] [address] [place] [address] [phone] * HIV-1/2 Antigen and Antibodies, Fourth Generation, with Reflexes (04/02/2024 12:51 PM EDT) HIV AB/AG Nonreactive Nonreactive [facility] Comment:HIV-1 p24 Ag and/or HIV-1/HIV-2 Ab not detected.A test result that is nonreactive does not exclude thepossibility of exposure to or infection with HIV-1 and/orHIV-2. Nonreactive results in this assay for individualswith prior exposure to HIV-1 and/or HIV-2 may be due toantigen and antibody levels that are below the limit ofdetection of this assay.The [employer] HIV Ag/Ab Combo assay result andsupplemental assay results should be interpreted inconjunction with the patient's clinical presentation,history and other laboratory results. If the results areinconsistent with clinical evidence, additional testing issuggested to confirm the result. Blood Venous blood specimen / Unknown 04/02/2024 12:51 PM EDT 04/02/2024 3:59 PM EDT us Nell Alarcon SOLUTION MIXER LAB BLOOD ORDERABLES Final Resul t Performing Organization Address [facility] Co de Phone Number [facility] [address] [place] [phone] * Pap Smear (10/30/2022 12:00 AM EST) Swab us Historical Provider MD LAB CYTOLOGY ORDERABLES F inal Result Performing Organization Address [facility] Co de Phone Number EXTERNAL LAB from Last 3 Months or Most Recently Relevant to Health Maintenance Insurance Ischemia Care C3 Care Teams Mechanic Marine Engine Relationship Specialty Start Date End Date Nell Alarcon NP [address] [place] [phone] PCP - General Family Medicine 01/18/24
--- OUTSIDE RECORDS SUMMARY | 2025-07-14 17:10 | XMS_ITS | Encounter Summary ---
Author Organization [employer] Address [address] [facility] 7 [place] [address] Care Team Providers Care Automobiles Salesperson Name Role Phone Nell Alarcon LEONOR Primary Care Provider Encounter Details Date Type Department Care Team (Latest Contact Info) Description 07/14/2025 Travel Social History Tobacco Use Types Packs/Day Years Used Date Smoking Tobacco: Former Passive Smoke Exposure: Past Smokeless Tobacco: Never Alcohol Use Standard Drinks/Week [...] documented as of this encounter Care Teams Automobiles Salesperson Relationship Specialty Start Date End Date Nell Alarcon NP [address] [place] [phone] PCP - General Family Medicine 01/18/24 documented as of this encounter
--- OUTSIDE RECORDS SUMMARY | 2025-07-14 17:10 | XMS_ITS | Encounter Summary ---
Author Organization [employer] Address [address] [place] [address] Care Team Providers Care Painter And Decorator Name Role Phone Nell Alarcon NP Primary Care Provider [phone] Reason for Visit * Reason Onset Date Comments Med Refill 03/30/2025 Encounter Details Date Type Department Care Team ([facility] st Contact Info) Description 03/30/[address] [facility] [address] [place], [place] [phone] Nell Alarcon NP [address] [place] [address] Social History Tobacco Use Types Packs/Day Years [...] MG/0.5ML solution auto-injector To be sent to: [facility] documented in this encounter Plan of Treatment Not on file documented as of this encounter Visit Diagnoses Not on filedocumented in this encounter Additional Health Concerns Assessment Noted Time PHQ-9 Depression Total Score: 3 02/14/20 25 10:54 AM EDT documented as of this encounter Care Teams Painter And Decorator Relationship Specialty Start Date End Date Nell Alarcon NP [address] [place] [address] PCP - General Family Medicine 01/18/24 documented as of this encounter
--- OUTSIDE RECORDS SUMMARY | 2025-07-14 17:10 | XMS_ITS | Clinical Summary ---
Author Organization [employer] [facility] Address [address] [place] [address] Care Team Providers Care Reed Or Wind Instrument Repairer Name Role Phone Jacquie Castle Primary Care [...] age to complete this topic Care Teams Reed Or Wind Instrument Repairer Relationship Specialty Start Date End Date Jacquie [place] DO [address] [place] [phone] PCP - General Family Medicine 02/16/23
--- OUTSIDE RECORDS SUMMARY | 2025-07-14 17:10 | XMS_ITS | Encounter Summary ---
Author Organization [employer] Address [address] [address] Care Team Providers Care Room Service Manager Name Role Phone Jacquie [place] DO Primary Care Provider + [phone] Jacquie [place] DO Primary Care Provider + [phone] Nell Alarcon NP Primary Care Provider [phone] Encounter Details Date Type Department Care Team (Late st Contact Info) Description 10/26/2022 Orders Only [facility] MED & PEDS [address] [place] [address] Jacquie Deras LPN Social History Tobacco Use [...] on filedocumented in this encounter Care Teams Room Service Manager Relationship Specialty Start Date End Date Jacquie [place] DO [address] [place] [address] PCP - General Family Medicine 10/01/18 08/02/23 Jacquie Castle DO [address] [place], [place] [phone] PCP - General Family Medicine 11/08/23 01/17/24 Nell Alarcon NP [address] [place] [address] PCP - General Family Medicine 01/18/24 documented as of this encounter
--- OUTSIDE RECORDS SUMMARY | 2025-07-14 17:10 | XMS_ITS | Encounter Summary ---
Author Organization [employer] Address [address] [facility] [address] [place] [address] Care Team Providers Care Enterprise Software Engineer Name Role Phone Jacquie [place] DO Primary Care Provider + [phone] Jacquie Castle DO Primary Care Provider + [phone] Nell Alarcon NP Primary Care Provider [phone] Encounter Details Date Type Department Care Team (Late st Contact Info) Description 06/19/2023 Orders Only [facility] MED & PEDS [address] [place] [address] Pippa Mercer, CNM [address] [place] [address] Social History Tobacco Use Types Packs/Day Years [...] on filedocumented in this encounter Care Teams Enterprise Software Engineer Relationship Specialty Start Date End Date Jacquie [place] DO [address] [place] [address] PCP - General Family Medicine 10/01/18 08/02/23 Jacquie Castle DO [address] [place] [address] PCP - General Family Medicine 11/08/23 01/17/24 Nell Alarcon NP [address] [place] [address] PCP - General Family Medicine 01/18/24 documented as of this encounter
--- OUTSIDE RECORDS SUMMARY | 2025-07-14 17:10 | XMS_ITS | Encounter Summary ---
Author Organization [employer] Address [address] [facility] [address] [place] [address] Care Team Providers Care Olive Picker Name Role Phone Jacquie [place] DO Primary Care Provider + [phone] Jacquie Castle DO Primary Care Provider [phone] Nell Alarcon NP Primary Care Provider [phone] Encounter Details Date Type Department Care Team ([facility] st Contact Info) Description 01/30/[address] [facility] MED & PEDS [address] [place], [place] [phone] Jacquie Deras LPN Social History Tobacco Use [...] on filedocumented in this encounter Care Teams Olive Picker Relationship Specialty Start Date End Date Jacquie Castle DO [address] [place] [phone] PCP - General Family Medicine 10/01/18 08/02/23 Jacquie Castle DO [address] [place] [address] PCP - General Family Medicine 11/08/23 01/17/24 Nell Alarcon NP [address] [place] [address] PCP - General Family Medicine 01/18/24 documented as of this encounter
--- OUTSIDE RECORDS SUMMARY | 2025-07-14 17:10 | XMS_ITS | Encounter Summary ---
Author Organization [employer] Address [address] [facility] 7 [place] [address] Care Team Providers Care Data Base Design Analyst Name Role Phone RudyNell hendrix LEONOR Primary Care Provider [phone] Reason for Visit * Reason Comments Med Refill Encounter Details Date Type Department Care Team (Late st Contact Info) Description 06/17/2024 Refill [facility] MED & PEDS [address] [place] [address] Jacquie Castle DO [address] [place] [address] Social History Tobacco Use Types Packs/Day Years [...] documented as of this encounter Care Teams Data Base Design Analyst Relationship Specialty Start Date End Date Nell Alarcon NP [address] [place] [address] PCP - General Family Medicine 01/18/24 documented as of this encounter
--- OUTSIDE RECORDS SUMMARY | 2025-07-14 17:10 | XMS_ITS | Encounter Summary ---
Author Organization [employer] Address [address] [address] Care Team Providers Care Nailer Machine Name Role Phone Nell Alarcon NP Primary Care Provider [phone] Reason for Visit * Reason Onset Date Comments Medication Question 07/10/2025 Call Back Request 07/10/2025 Encounter Details Date Type Department Care Team ([facility] Contact Info) Description 07/10/2025 Telephone [facility] [address] [place] [address] Nell Alarcon NP [address] [place] [address] Medication Question; Call Back Request Social History Tobacco Use Types Packs/Day Years [...] encounter Miscellaneous Notes * Telephone Encounter - Tracey Riley RN - 07/14/2025 1:10 PM EDT TC placed to pt to schedule visit with PCP. Pt booked for visit today 07/14/25 at 1:45 PM with PCP.Pt agreeable to appointment and denies questions at this time. * Telephone Encounter - aWrren Saunders - 07/14/2025 9:36 AM EDT Tc from pt returning call regarding message prior. * Telephone Encounter - Tracey Riley RN - 07/13/2025 1:09 PM EDT TC placed to pt to schedule visit with PCP. No answer, LVM to call office back and ask to speak to the blue team nurses. * Telephone Encounter - Jina Valentin - 07/10/2025 2:55 PM EDT Tc from pt requesting to schedule apt to have Zepbound prescribed again , Contact pt at [phone] documented in this encounter Plan of Treatment Not on file documented as of this encounter Visit Diagnoses Not on filedocumented in this encounter Additional Health Concerns Assessment Noted Time PHQ-9 Depression Total Score: 3 02/14/20 25 10:54 AM EDT documented as of this encounter Care Teams Nailer Machine Relationship Specialty Start Date End Date Nell Alarcon NP [address] [place] [address] PCP - General Family Medicine 01/18/24 documented as of this encounter
--- OUTSIDE RECORDS SUMMARY | 2025-07-14 17:10 | XMS_ITS | Encounter Summary ---
Author Organization [employer] Address [address] [address] Care Team Providers Care Radiographer Cardiac Catheterization Name Role Phone Jacquie Castle DO Primary Care Provider + [phone] Jacquie Castle DO Primary Care Provider + [phone] Nell Alarcon NP Primary Care Provider [phone] Encounter Details Date Type Department Care Team (Late st Contact Info) Description 12/06/2022 Orders Only [facility] MED [facility] PEDS [address] [place] [address] Jacquie Deras LPN Social History Tobacco Use [...] on filedocumented in this encounter Care Teams Radiographer Cardiac Catheterization Relationship Specialty Start Date End Date Jacquie Castle DO [address] [place] [address] PCP - General Family Medicine 10/01/18 08/02/23 Jacquie Castle DO [address] [place], [place] [phone] PCP - General Family Medicine 11/08/23 01/17/24 Nell Alarcon NP [address] [place] [address] PCP - General Family Medicine 01/18/24 documented as of this encounter
== END 2025-07-14 14:12 | disposition home or self-care (01) ==
LOC: HO.HHCL 14:11
PROVIDERS: PCP Nurse Practitioner Family; Visit Provider Nurse Practitioner Family
DX: E66.811 Obesity, class 1 (principal)
CPT/HCPCS: 36415; 80048; 83036

== ENCOUNTER 2025-07-22 12:25 | Outpatient (AMB) | payer MEDICAID, SELFPAY ==
--- NOTE | 2025-07-22 12:26 | A.OFFVIS_ITS ---
Vital Signs 07/22/25 12:36 Height 5 ft 4 in Weight 175 lb BMI 30.0 BP 102/52 L Blood Pressure Location Rt brachial Position Sitting Pulse 79 Intake Visit Reasons: wound check Intake Note: Patient here s/p Laparoscopic cholecystectomy. Patient c/o: itch along incision on mid abdomen. Still oozing, feels moist. Keeping it cover with band-aid. 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 Pain has improved since last visit, does have some concern for the epigastric port site as this continues to have some clear yellow drainage. She has been keeping this covered with a Band-Aid and notices small amounts of this fluid on the dressing when she changes it. She does endorse some pain at the incision site when bending over, pulling sensation. Otherwise diet and bowel function are at baseline. Denies fevers or chills at home. Denies nausea or vomiting PFSH Medical History Asthma exacerbation section wound complication Asthma Surgical History Hx laparoscopic cholecystectomy (06/18/25) Hx of section Family History Other Asthma Social History Household Members: Family Housing: Apartment Do you presently have visiting nurse or other home services: No Alcohol intake: never Comment: counts correct Patient Tobacco Use Status: Former Tobacco user Substance Use Type: Marijuana service: No Current occupational status: unemployed Female Reproductive History Menstrual Age of Menarche: 8 Physical Exam Vital Signs: Last Vital Signs Pulse 79 07/22/25 12:36 BP 102/52 L 07/22/25 12:36 BMI result Body Mass Index 30.0 Const General: comfortable and no acute distress Orientation/consciousness: patient oriented x3 Resp Effort & Inspection: normal respiratory effort and able to speak in complete sentences GI Other: Epigastric port site: Scant serous drainage, some mild scabbing, when this scabbing there is a retained dissolvable suture. No surrounding erythema, nontender, no purulence, no fluctuance. All additional port sites: Well healed, clean dry intact, no erythema, fluctuance, nontender Palpation (GI): Soft to palpation and nontender Neuro General: patient oriented x3 Assessment & Plan Assessment & Plan (1) S/P laparoscopic cholecystectomy: Code(s): Z90.49 - Acquired absence of other specified parts of digestive tract Category: Surgical Plan 34-year-old female s/p laparoscopic cholecystectomy on 06/18/[address] Pendleton returning to the office for routine follow up. Patient overall doing very well. She is concerned about the epigastric port site. This is had some scant serous drainage from her last visit. She has been keeping this dressed with a Band-Aid and notices a small amount of fluid each time she changes it. She continues to have some stabbing pain intermittently with ambulation at the epigastric port site when ambulating, I reassured her that this is appropriate at this time and should improve with time over the next couple of weeks to a month. On exam the epigastric port site does have some scant serous drainage, there was also a protruding suture from the center of the incision. I elevated this and trimmed to close the skin. Reassured her that her symptoms may have been caused by this and now that it is trimmed the area should close up and began to heal. There was no purulence, local cellulitis, fluctuance or tenderness suggestive of infection. She should keep this covered until there was no more drainage, 1 sutures no drainage on the Band-Aid for a couple of days she can leave this open to air. Her appetite and bowel function are at baseline. Abdomen is soft and benign. All other Incision sites appear clean and dry, I reassured her that this was not infection, there was no surrounding erythema there was no fluid collection and was nontender to palpation. I did reinforce with a Steri-Strips and covered with a Band-Aid. At this point no longer requiring activity restrictions, can slowly increase activity as tolerated. She does not need a formal appointment scheduled but can follow up as needed with any concerns in the future. Coding Level of Care Code Global (59607) Diagnoses S/P laparoscopic cholecystectomy Z90.49
[2025-07-22 12:36] VITALS: BP 102/52; PULSE 79
--- OUTSIDE RECORDS SUMMARY | 2025-07-22 17:14 | XMS_ITS | Clinical Summary ---
Author Organization [facility] Address [address] [place] [address] Care Team Providers Care Metal Moulder Name Role Phone Jacquie Castle Primary Care [...] age to complete this topic Care Teams Metal Moulder Relationship Specialty Start Date End Date Jacquie Castle DO [address] [place] [address] PCP - General Family Medicine 02/16/23
--- OUTSIDE RECORDS SUMMARY | 2025-07-22 17:15 | XMS_ITS | Clinical Summary ---
Author Organization [facility] ity Address [address] [place] [address] Care Team Providers Care Grain Elevator Motor Starter Name Role Phone Donaldsondra Jacquie Michael LEVY Primary Care Provider [phone] Surgical History Surgery Date Site/Laterality Comments SECTION [...] age to complete this topic Care Teams Grain Elevator Motor Starter Relationship Specialty Start Date End Date Jacquie Castle DO [address] [place] [address] PCP - General 02/16/23
== END 2025-07-22 12:49 | disposition home or self-care (01) ==
LOC: HO.HGS 12:26
PROVIDERS: PCP Nurse Practitioner Family
DX: Z90.49 Acquired absence of other specified parts of digestive tract (principal)
CPT/HCPCS: 99024

== ENCOUNTER → 2025-07-22 12:25 | Outpatient (BNVA) | payer MEDICAID, SELFPAY | PROVIDERS: PCP Nurse Practitioner Family | DX: Z48.01 Encounter for change or removal of surgical wound dressing (principal) | CPT/HCPCS: 99212 ==